=== PATIENT | female | born 1945 | race Caucasian/White ===

== ENCOUNTER 2018-12-31 14:09 | Inpatient (IN) | payer MEDICARE, OTHER ==
[~2018-12-31] VITALS: Ht 165.1 cm; Wt 111.2 kg
[~2018-12-31 14:09] MED LIST: AMIT25 PO; Calcium-Magnes1 EAC5 PO; DOCU100 PO; HYDHCL25 PO; IBUP800 PO; LEVO750 PO; LISI20 PO; NICO14TP TOP; Omeprazole20 M1 PO; PSEU120ER PO; SENN187 PO; SODBIC650 PO; SODCHL1 PO
[2018-12-31 14:43] LABS: Hematocrit 36.1 % (33.0-51.0); Hemoglobin 11.4 g/dL (11.5-16.0); Mean Corpuscular HGB 28.2 pg (26.0-34.0); Mean Corpuscular HGB Conc 31.6 g/dL (31.5-36.5); Mean Corpuscular Volume 89 fL (80-100); Mean Platelet Volume 9.2 fL (9.1-12.4); Platelet Count 256 K/mm3 (150-400); RDW Coefficient Variation 13.9 % (11.7-14.2); RDW Standard Deviation 45.2 fL (35.1-46.3); Red Blood Cell Count 4.04 M/mm3 (3.80-5.20); White Blood Cell Count 21.66 K/mm3 (4.00-11.30)
[2018-12-31] MEDS ORDERED: SERT50 PO (14:55)
[2018-12-31] MEDS ORDERED: STIOLTO RESPIMAT4 GM IH (14:57)
[2018-12-31 15:04] LABS: BASOPHILS PERCENT MAN 0 % (0-2); EOSINOPHILS PERCENT MAN 0 % (0-6); LYMPHOCYTES ABSOLUTE MAN 8.23 K/mm3 (0.84-5.20); LYMPHOCYTES PERCENT MAN 38 % (21-46); MONOCYTES ABSOLUTE MAN 0.64 K/mm3 (0.16-1.47); MONOCYTES PERCENT MAN 3 % (4-13); NEUTROPHILS ABSOLUTE MAN 12.77 K/mm3 (1.96-9.15); SEG NEUTROPHILS PERCENT MAN 59 % (41-73); TOTAL CELLS COUNTED 100
[2018-12-31 15:05] LABS: Alanine Aminotransfer (ALT/SGP 22 U/L (12-78); Albumin, Blood 3.7 g/dL (3.4-5.0); Alk Phos 62 U/L (50-136); Anion Gap 7 mmol/L (6-16); Aspartate Aminotrans (AST/SGOT 18 U/L (12-37); Bilirubin, Total 0.3 mg/dL (0.1-1.0); Blood Urea Nitrogen 15 mg/dL (8-24); Bun/Creatinine Ratio 22.6 (12.0-20.0); CO2, Blood 27 mmol/L (21-32); Calcium, Blood 8.7 mg/dL (8.5-10.1); Chloride, Blood 95 mmol/L (98-108); Creatinine, Blood 0.66 mg/dL (0.40-1.00); Globulin, Blood 3.6 g/dL (2.2-4.0); Glomerular Filtration Rate >60 (60-); Glucose, Blood 145 mg/dL (70-99); Potassium, Blood 4.6 mmol/L (3.5-5.5); Sodium, Blood 129 mmol/L (136-145); Total Protein, Blood 7.3 g/dL (6.4-8.2); Troponin I 0.114 ng/mL (0.000-0.040)
[2018-12-31 16:20] LABS: PCO2 Arterial 55.3 mmHg (35-45); PO2 Arterial 65.5 mmHg (80-100); pH Blood Arterial 7.32 (7.35-7.45)
[2018-12-31] MEDS ORDERED: Norco 10-325 T1 EACH PO (16:55)
[2018-12-31] MEDS ORDERED: CHOL10002 PO (16:58)
[2018-12-31] MEDS ORDERED: MAGOXI400 PO (16:58)
[2018-12-31] MEDS ORDERED: Aspirin EC81 MG PO (16:59)
[2018-12-31] MEDS ORDERED: SERT100 PO (16:59)
[2018-12-31] MEDS ORDERED: LISI5 PO (17:44)
[2018-12-31] MEDS ORDERED: ALBU90OI6 INH (17:45)
--- NOTE | 2018-12-31 19:38 | NUR ---
ARRIVAL AND SHIFT SUMMARY PT PLEASANT AND COOPERATIVE. PT ARRIVED TO UNIT APPROX. 1820 FROM ED VIA GURNEY. PT WAS SLIDE OVER BY STAFF FROM ONE BED TO ANOTHER. ORIENTED PT TO UNIT, ROOM, AND POLICIES. PT ARRIVED TO UNIT SHORT OF BREATH. SATS 96 WITH 3-4L VIA N.C. BUT REMAINED SOB. R.T. WAS NOTIFIED. ENCOURAGED PT TO BREATH IN THROUGH NOSE AND TAKE DEEP BREATHS BUT REMAINED SOB. LUNG SOUNDS HAVE EXPIRATORY WHEEZES T/O. PT REPORTS HAVING PRODUCTIVE COUGH AT TIMES THAT IS YELLOW. VITAL SIGNS STBALE. HEART RHYTHM SINUS TACHYCARDIA IN 100'S. PT DAUGHTER AT BEDSIDE. BED IN LOW POSITION, CALL LIGHT IN REACH AND PT DENIES ANY NEEDS AT THIS TIME. WILL CONTINUE TO MONITOR UNTIL HANDOFF TO NIGHTSHIFT RN.
[2018-12-31] MEDS ORDERED: Calcium Carbon650 MG PO (19:41)
--- NOTE | 2018-12-31 20:00 | NUR ---
CARE ASSUMPTION PT A&O X4, C/O SOB. WHEEZE HEARD T/O LUNGS. SPO2 > 92% ON 3.5L NC. RT IN TO GIVE PT BREATHING TX. PT REFUSING BIPAP/CPAP, REFUSAL FORM SIGNED BY PT AND PLACED IN CHART BY RT. MONITOR SHOWS ST, HR 110-125. OTHERWISE VSS. PT'S DAUGHTER AT BEDSIDE, PROVIDING PT HX AND COACHING PT TO DEEP BREATHE. WILL CONTINUE TO MONITOR AND PROVIDE CARE.
--- NOTE | 2018-12-31 22:32 | NUR ---
UPDATE SECOND TROPONIN BUMPED @ 1.020 FROM 0.114. PT DENIES CP. PT C/O SOB W/ O2 DEMAND INCREASE FROM 3.5L NC TO 5L NC TO MAINTAIN SPO2 > 92% W/ PT LABORING TO BREATHE. PT AGREEABLE TO TRY BIPAP. RT NOTIFIED AND PT PLACED ON BIPAP. ORDERS FROM CHARISMA ATKINSON FOR CARDIOLOGY CONSULT, ECHO IN AM, HEPARIN GTT, AND OTHER MEDICATION CHANGES, SEE E-MAR. WILL CONTINUE TO MONITOR AND PROVIDE CARE.
[2018-12-31 23:31] LABS: International Normalized Ratio 0.94
[2019-01-01 05:47] LABS: Hematocrit 35.5 % (33.0-51.0); Hemoglobin 11.5 g/dL (11.5-16.0); Mean Corpuscular HGB 28.5 pg (26.0-34.0); Mean Corpuscular HGB Conc 32.4 g/dL (31.5-36.5); Mean Corpuscular Volume 88 fL (80-100); Mean Platelet Volume 9.2 fL (9.1-12.4); Platelet Count 260 K/mm3 (150-400); RDW Coefficient Variation 13.4 % (11.7-14.2); RDW Standard Deviation 43.8 fL (35.1-46.3); Red Blood Cell Count 4.03 M/mm3 (3.80-5.20)
[2019-01-01 06:09] LABS: Anion Gap 7 mmol/L (6-16); Blood Urea Nitrogen 14 mg/dL (8-24); Bun/Creatinine Ratio 24.3 (12.0-20.0); CO2, Blood 28 mmol/L (21-32); Calcium, Blood 8.8 mg/dL (8.5-10.1); Chloride, Blood 89 mmol/L (98-108); Creatinine, Blood 0.58 mg/dL (0.40-1.00); Glomerular Filtration Rate >60 (60-); Glucose, Blood 154 mg/dL (70-99); Potassium, Blood 4.3 mmol/L (3.5-5.5); Sodium, Blood 124 mmol/L (136-145)
--- NOTE | 2019-01-01 06:31 | NUR ---
SHIFT SUMMARY PT A&O X4. LUNG SOUNDS WHEEZY T/O. PT STARTED SHIFT ON 3.5L NC. PT LABORING TO BREATHE, BIPAP PLACED ON PT. PT SELF-REMOVAL OF BIPAP W/ DESAT LOW 80'S W/ PT REFUSAL TO WEAR BIPAP MORE. PT NOW WEARING 6L OXYMIZER W/ SPO2 > 92%. MONITOR SHOWING SINUS TACH, HR 100-125 T/O SHIFT. TROPONINS TRENDING UP. CALL TO CHILDCARE WORKER ATKINSON THIS SHIFT W/ ORDERS FOR CARDIOLOGY CONSULT, ECHO, HEPARIN GTT, AND OTHER MEDICATIONS ADDED WELL. PT DENIES CP OR ANY OTHER PAIN OR DISCOMFORT. PT C/O SOB. OCCASSIONAL COUGH W/ PRODUCTION OF THICK, LOPEZ SPUTUM. PT SBA TO BEDSIDE COMMODE. DAUGHTER AT BEDSIDE ASSISTING PT W/ CARE AND COACHING DEEP BREATHING. WILL CONTINUE TO MONITOR AND PROVIDE CARE UNTIL REPORT OFF TO DAY SHIFT RN.
--- NOTE | 2019-01-01 10:50 | NUR ---
RECEIVED REPORT AND ASSUMED CARE OF PATIENT. PT IS SITTING UP IN CHAIR, SHE IS BREATHING WELL AND O2 SAT ARE >95% ON OXYMIZER 6LPM. DAUGHTER AT BEDSIDE ASSISTING WITH CARE AND SUPPORT. WILL CONTINUE TO MONITOR AND FOLLOW ORDERS FOR THIS PATIENT.
--- NOTE | 2019-01-01 11:29 | NUR ---
Echocardiogram comleted.
--- NOTE | 2019-01-01 14:05 | NUR ---
PERMISSION TO PROVIDE CARE PATIENT GAVE STUDENT PERMISSION TO PROVIDE CARE ON 01/01/19 FROM 0630 TO 1200.
--- NOTE | 2019-01-01 14:31 | NUR ---
Initial Visit: Palliative Care Consult for Cancer, Pulmonary, Advanced Care Planning, and Symptom Management. Pt is A&O and reports a tolerable pain level of 3/10 in the center of her chest. She reports the pain is related to the area where her cancer is. Pt denies dyspnea at beginning of visit but as the visit progressed she started experiencing mild dyspnea as evidenced by accessory muscle use. Pt reports her dyspnea worsens with exertion. She reports the current nebulizer treatments she is receiving is helping but her home inhaler is more beneficial. Pt's daughter Velia is present during visit. Velia is Pt's primary caregiver. Engaged in therapeutic discussions regarding goals of care. Pt lives at home with Velia. Pt states that she believes in God but does not practice any particular holiness. Listened as Pt and daughter discusses Pt's recent decline in her ADLs. Pt at base line uses a walker for ambulation but recently has been bed and chair bound due to weakness and SOB. Pt requires assistance with transfers and becomes dyspneic. She also requires assistance with bathing and showering. She also experiences occasional incontinence of bowel and bladder. Pt reports adequate support with her caregiving needs with her daughter Velia. Velia reports no concerns and states she has friends and relatives that help with Pt needs when she needs respite. Pt's reports her biggest concern at this time is obtaining a biopsy during her hospital stay. She states that she can not afford to travel to [place] for the biopsy and she would like to receive treatment here in [place]. Pt and daughter report no other concerns at this time. PPS 50% [place] 50% ADLs 5/6 Spoke with Pt's respiratory therapist regarding Pt's home inhaler. She is agreeable with this RN requesting order from hospitalist to use her home inhaler. Spoke with Pt's bedside nurse Kaylee and she is agreeable with plan for Pt's use of home inhaler. Discussed with Kaylee regarding Pt's goal to have biopsy done during her hospital stay. Kaylee reports no concerns. Called and spoke with Dr Styles regarding Pt's goal for biopsy. Dr Styles reports plan to order biopsy once Dr Jc has determined Pt know longer needs heparin. Dr Styles is agreeable for Pt to use home inhaler. Spoke with critical care physician assistant Tahmina regarding Pt's goal. Tahmina reports she is in the process of contacting the [place] regarding coverage. Tahmina also reports Pt has medicare and medicaid. Plan: Placed order for home inhaler per V/O from Dr Styles. Plan is for Pt to obtain biopsy once heparin therapy is finished. Palliative Care will remain available for therapeutic visits.
--- NOTE | 2019-01-01 15:48 | NUR ---
Addendum from Initial Visit note. watershed manager this RN spoke with is Page not Tahmina.
--- NOTE | 2019-01-01 18:10 | NUR ---
PT HAD A GOOD DAY SHE DID EXPERIENCE A BOUT OF SOB, REPIRATORY CARE GAVE A BREATHING TREATMENT AND HELPED REPOSITION PT TO TRIPOD BREATHE. PT RESPONDS WELL TO ENCOURAGEMENT AND POSITIVE CUES R/T BREATHING AND SOB. PT CONTINUES ON 5 LPM WITH OXYMIZER. ADDITIONALLY HEPARIN RUNNING AT 16 U/KG/HR. PT TAKEN TO IMAGING FOR CT SCAN. WILL CONTINUE TO MONITOR AND GIVE REPORT TO BRINA STEWARD.
[2019-01-01 21:41] LABS: International Normalized Ratio 0.99; Prothrombin Time Results 10.5 Sec (9.7-11.5)
[2019-01-02 04:07] LABS: PCO2 Arterial 76.4 mmHg (35-45); PO2 Arterial 118 mmHg (80-100); pH Blood Arterial 7.24 (7.35-7.45)
[2019-01-02 04:08] LABS: EOSINOPHILS ABSOLUTE AUTO 0.01 K/mm3 (0.00-0.68); EOSINOPHILS PERCENT AUTO 0 % (0-6); Hemoglobin 11.6 g/dL (11.5-16.0); Mean Corpuscular HGB 27.8 pg (26.0-34.0); Mean Corpuscular HGB Conc 32.2 g/dL (31.5-36.5); Mean Corpuscular Volume 86 fL (80-100); Mean Platelet Volume 9.3 fL (9.1-12.4); Platelet Count 339 K/mm3 (150-400); RDW Coefficient Variation 13.5 % (11.7-14.2); RDW Standard Deviation 42.1 fL (35.1-46.3); Red Blood Cell Count 4.17 M/mm3 (3.80-5.20)
[2019-01-02 04:09] LABS: BASOPHILS ABSOLUTE AUTO 0.03 K/mm3 (0.00-0.23); BASOPHILS PERCENT AUTO 0 % (0-2); IMMATURE GRAN ABSOLUTE AUTO 0.27 K/mm3 (0.00-0.10); IMMATURE GRAN PERCENT AUTO 1 % (0-1); LYMPHOCYTES ABSOLUTE AUTO 26.21 K/mm3 (0.84-5.20); LYMPHOCYTES PERCENT AUTO 59 % (21-46); MONOCYTES ABSOLUTE AUTO 0.86 K/mm3 (0.16-1.47); MONOCYTES PERCENT AUTO 2 % (4-13); NEUTROPHILS ABSOLUTE AUTO 17.42 K/mm3 (1.96-9.15); NEUTROPHILS PERCENT AUTO 39 % (41-73)
[2019-01-02 04:33] LABS: Anion Gap 5 mmol/L (6-16); Blood Urea Nitrogen 19 mg/dL (8-24); Bun/Creatinine Ratio 32.6 (12.0-20.0); CO2, Blood 31 mmol/L (21-32); Calcium, Blood 8.3 mg/dL (8.5-10.1); Chloride, Blood 83 mmol/L (98-108); Creatinine, Blood 0.58 mg/dL (0.40-1.00); Glomerular Filtration Rate >60 (60-); Glucose, Blood 183 mg/dL (70-99); Potassium, Blood 4.5 mmol/L (3.5-5.5); Sodium, Blood 119 mmol/L (136-145)
[2019-01-02 05:34] LABS: PCO2 Arterial 72.7 mmHg (35-45); PO2 Arterial 60.7 mmHg (80-100); pH Blood Arterial 7.26 (7.35-7.45)
--- NOTE | 2019-01-02 06:19 | NUR ---
SHIFT SUMMARY. ASSUMED CARE AT 1900 LAST NOC. A+O VERY LITTLE CONVERSING AND EXPRESSED DISAPPOINTMENT IN BEING UNABLE TO TAKE 2 STEPS TO BSC AND STRUGGLING W/ SUCH SOB . REFUSED ANY FOOD AT EARLY PART OF SHIFT . PURSED LIP BREATHING MOSTLY AND ACCESSORY MUSCLES USED
[2019-01-02 08:02] LABS: PCO2 Arterial 63.5 mmHg (35-45)
--- NOTE | 2019-01-02 09:43 | NUR ---
ASSUMED CARE: REPORT RECIEVED FROM GEORGETTE STEWARD. PT ANXIOUS, DISORIENTED. BIPAP IN PLACE AT 20/8 WITH FIO2 AT 30%. WRIST RESTRAINTS PLACED DUE TO PT'S CONFUSION AND AGITATION, ATTEMPTING TO CLIMB OUT OF BED. FLANNERY CATH IN PLACE WITH CLEAR YELLOW URINE. PT'S DAUGHTER AWARE OF ROOM CHANGE AND AWARE OF PLAN. 1 MG ATIVAN GIVEN, AWAITING PRECEDEX GTT
--- NOTE | 2019-01-02 10:12 | NUR ---
Respiratory Event: Received report and assumed care of patient. Pt is on Bipap 20/8 30% O2. Pt was sleeping at beginning of shift, daughter at bedside. When patient woke up she is moaning and very uncomfortable. Tried to reposition patient to bedpan, but patient will not comply with positioning and when bedpan is placed, she is not able to urinate. O2 saturation began dropping as patient anxiety increased. Called RT and CN RN, Pt O2 sat dropped as low as 79% during event, increased O2 to 60% to assist patient during crisis. Dr. Styles arrived to room and during event and ordered transfer to ICU, consult with pulmonology, and NPO status. Pt continued to fight the Bipap and bedpan, noticed small abrasions from bedpan when it was removed. Used therapeutic communication and calming methods to help patient improve breathing. RT returned O2 sat to 35% and prepared to transfer patient with Bipap. When O2 sat improved to 90%, placed 16 FR proctor cath with immediate return of urine. Gave telephone report to RN Mima Hamm Transferred patient to ICU 9.
--- NOTE | 2019-01-02 10:48 | NUR ---
Pt visit this AM. Pt is resting in bed with her eyes closed. Currently on BIPAP with dyspnea. Daughter and son in law at bedside. Daughter reports she was informed that medicare will not cover chemo therapy treatments and she is considering options such as adding Atrio back as a supplement or seeing a [facility] oncologist in [place] for VA to cover treatment here in [place]. Pt appears comfortable at this time and daughter reports no other concerns at this time. Spoke with Pt's bedside nurse Mima and she reports no concerns at this time. Palliative care will remain available.
[2019-01-02 10:57] LABS: Sodium, Urine, Random 45 mmol/L (20-110)
[2019-01-02 13:07] LABS: Osmolality, Urine 623 mos/kg (15-1400)
[2019-01-02 14:51] LABS: Anion Gap 5 mmol/L (6-16); Blood Urea Nitrogen 21 mg/dL (8-24); Bun/Creatinine Ratio 36.3 (12.0-20.0); CO2, Blood 30 mmol/L (21-32); Chloride, Blood 86 mmol/L (98-108); Creatinine, Blood 0.58 mg/dL (0.40-1.00); Glomerular Filtration Rate >60 (60-); Glucose, Blood 140 mg/dL (70-99); Potassium, Blood 4.5 mmol/L (3.5-5.5); Sodium, Blood 121 mmol/L (136-145)
[2019-01-02 14:53] LABS: Thyroid Stimulating Hormone 0.834 uIU/mL (0.360-4.800)
[2019-01-02 14:59] LABS: Osmolality, Serum 260 mos/KG (275-300)
--- NOTE | 2019-01-02 16:29 | NUR ---
PT REQUESTED BREAK FOR SIP OF WATER AND ORAL CARE. SHE BECAME TACHYPNEIC AND AUDIBLY WHEEZY. DISCUSSED WITH DR LICEA TO MAKE HIM AWARE. DR ALSO AWARE THAT PT DID NOT RECIEVE ORAL MEDS THIS AM DUE TO BIPAP. PT REMAINS ON PRECEDEX 0.2MCG/KG/MIN. DAUGHTER AT BEDSIDE. NO FURTHER NEEDS OR CONCERNS AT THIS TIME.
--- NOTE | 2019-01-02 18:02 | NUR ---
SHIFT SUMMARY: PT REMAINS ON BIPAP WITH SETTINGS 18/8 AND 30% FIO2. PT BECOMES VERY LABORED AND WHEEZY WHEN BIPAP IS REMOVED. PRECEDEX GTT AT 0.3MCG/KG/MIN AND THIS APPEARS TO HELP MAINTAIN VITALS. PT REMAINS IN WRIST RESTRAINTS. DAUGHTER AT BEDSIDE. NO ACUTE NEEDS OR CONCERNS AT THIS TIME.
--- NOTE | 2019-01-02 21:54 | NUR ---
START OF SHIFT: REPORT FROM DARRICK STEWARD. PT ON BIPAP. VSS. GTT'S VERIFIED. PT AND PT'S DAUGHTER BOTH SLEEPING AT TIME OF BEDSIDE REPORT. DURING PT ASSESSMENT, PT AWAKENED TO VOICE, ORIENTED TO SELF, FAMILY, AND FOLLOWING COMMANDS. PT REQUESTED AND WAS GIVEN SIPS OF WATER TWO DIFFERENTS TIMES AND TOLERATED WELL. PT REMAINS IN RESTRAINTS AND WAS GIVEN EXPLANATION WHY AND SEEMED TO ACCEPT. PT WAS REPOSITIONED BUT THEN C/O DISCOMFORT LYING ON RIGHT SIDE. PT REPOSITIONED FOR PT COMFORT. DAUGHTER REMAINS AT BEDSIDE AND TALKS TO PT FREQUENTLY KEEPING PT CALM AND RELAXED.
--- NOTE | 2019-01-03 03:31 | NUR ---
NAUSEA: PT COUGHED WITH BIPAP ALARM. UPON ENTERING, PT STATED THAT SHE WAS FEELING NAUSEATED. BIPAP TAKEN OFF, NC PLACED. PT GIVEN EMESIS BAG AND DRY-HEAVED ONCE. PT GIVEN ZOFRAN. PT REMAINS IN UPRIGHT HIGH-AGUILA'S POSITION. SATS 98% WITH N/C ON 5L-REDUCED TO 3.5L. WILL CONTINUE TO MONITOR AND REPLACE WITH BIPAP WHEN PT NAUSEA RESOLVES.
--- NOTE | 2019-01-03 03:39 | NUR ---
RESTRAINTS OFF WHEN PT BECAME NAUSEATED AND BIPAP OFF. PT NOT PULLING AT LINES OR CORDS. WILL REMAIN OFF RESTRAINTS IF PT REMAINS ORIENTED AND NOT PULLING AT LINES OR TUBES.
[2019-01-03 03:57] LABS: Hemoglobin 10.5 g/dL (11.5-16.0); Mean Corpuscular HGB 28.5 pg (26.0-34.0); Mean Corpuscular HGB Conc 32.8 g/dL (31.5-36.5); Mean Corpuscular Volume 87 fL (80-100); Mean Platelet Volume 9.4 fL (9.1-12.4); Platelet Count 241 K/mm3 (150-400); RDW Coefficient Variation 13.3 % (11.7-14.2); RDW Standard Deviation 42.4 fL (35.1-46.3); Red Blood Cell Count 3.68 M/mm3 (3.80-5.20); White Blood Cell Count 27.94 K/mm3 (4.00-11.30)
[2019-01-03 04:14] LABS: Albumin, Blood 3.3 g/dL (3.4-5.0); Anion Gap 6 mmol/L (6-16); Blood Urea Nitrogen 20 mg/dL (8-24); Bun/Creatinine Ratio 34.1 (12.0-20.0); CO2, Blood 30 mmol/L (21-32); Chloride, Blood 87 mmol/L (98-108); Creatinine, Blood 0.59 mg/dL (0.40-1.00); Glomerular Filtration Rate >60 (60-); Glucose, Blood 138 mg/dL (70-99); Phosphorus, Blood 2.4 mg/dL (2.5-4.9); Potassium, Blood 4.6 mmol/L (3.5-5.5); Sodium, Blood 123 mmol/L (136-145)
--- NOTE | 2019-01-03 05:01 | NUR ---
ANXIETY/COUGH: PT USING CALL LIGHT APPROPRIATELY. PT HAS BEEN TRYING TO WEAR BIPAP BUT IS HAVING FREQUENT COUGHING/GAGGING EPISODES PRODUCING CLEAR PHLEGM. PRECEDEX TITRATED UP TO 0.6mcg/kg/hr. VSS. PT CURRENTLY WITH SATS 98% VIA N/C 5L O2. WILL REDUCE TO 4L AND CONTINUE TO MONITOR.
[2019-01-03 06:04] LABS: BASOPHILS PERCENT MAN 0 % (0-2); EOSINOPHILS PERCENT MAN 0 % (0-6); LYMPHOCYTES ABSOLUTE MAN 14.24 K/mm3 (0.84-5.20); LYMPHOCYTES PERCENT MAN 51 % (21-46); MONOCYTES ABSOLUTE MAN 0.83 K/mm3 (0.16-1.47); MONOCYTES PERCENT MAN 3 % (4-13); NEUTROPHILS ABSOLUTE MAN 12.85 K/mm3 (1.96-9.15); SEG NEUTROPHILS PERCENT MAN 46 % (41-73); TOTAL CELLS COUNTED 100
--- NOTE | 2019-01-03 06:55 | NUR ---
ASSUMED CARE: PT RESTING QUIETLY AT THIS TIME. OUT OF RESTRAINTS, BIPAP ON, PRECEDEX AT 0.6 MCG/KG/MIN. BIPAP SETTINGS 18/8 WITH 30% FIO2. DAUGHTER AT BEDSIDE. NO ACUTE CHANGES OR NEEDS AT THIS TIME.
--- NOTE | 2019-01-03 07:41 | NUR ---
PT C/O NAUSEA. REMOVED FROM BIPAP FOR BREAK AND PROVIDED WITH SIPS OF WATER. PT TOLERATED FOR A FEW MINUTES BUT BEGAN TO DESAT. WHEEZING BEGAN TO WORSEN WELL BUT RESPIRATIONS STAYED IN 30S. PT STATES NAUSEA WAS BETTER. PT REACHED FOR CHEST BUT DENIES CHEST PAIN. NIGHT RN REPORTED PT WAS FEELING CONSTIPATED. DISCUSSED THIS WITH PT WHO DECLINED NEED FOR LAXATIVE. PT AWARE THAT THIS IS AVAILABLE IF SHE CHANGES HER MIND. NO FURTHER NEEDS OR CONCERNS AT THIS TIME.
--- NOTE | 2019-01-03 07:53 | NUR ---
PT CONTINUES TO C/O NAUSEA AND DESCRIBES IT A BUBBLE SUBSTERNALLY. CONTINUES TO REQUEST MASK REMOVED SO SHE CAN VOMIT BUT WHEN SHE TRIES MUCOUS COMES UP. DENIES CHEST PAIN. CALL TO DR GORDON. SEE NEW ORDERS
[2019-01-03 11:58] LABS: Base Excess Venous 4.9 mmol/L; PO2 Venous 62.5 mmHg (38-42); pH Blood Venous 7.37 (7.34-7.37)
--- NOTE | 2019-01-03 15:38 | NUR ---
PT REQUESTED TO TAKE A BREAK FOR SIPS OF WATER. PT WAS OFF FOR ABOUT 8 MINUTES THEN REQUESTED TO BE BACK ON. PRECEDEX HAS BEEN OFF SINCE 1213. PT'S DAUGHTER CALLED TO GET UPDATE. PT DENIES ANXIETY AT THIS TIME. DR GHOSH UPDATED
--- NOTE | 2019-01-03 17:23 | NUR ---
PT BECAME ANXIOUS AND WITH ANXIETY SOB INCREASED WELL HR. MEDICATED WITH ATIVAN WITH NO IMPROVEMENT. RESTARTED PRECEDEX GTT AT 0.3 MCG/KG/MIN
--- NOTE | 2019-01-03 18:06 | NUR ---
SHIFT SUMMARY: PT WAS RESTARTED ON PRECEDEX DUE TO INCREASED ANXIETY. PT BECOMES SOB WITH TASKS SUCH REPOSITIONING AND ORAL CARE AND BECAME ANXIOUS WHEN SHE WAS TOLD HER DAUGHTER WASN'T PLANNING ON SLEEPING HERE TONIGHT. PRECEDEX AT 0.6MCG/KG/MIN. BIPAP 16/8 WITH FIO2 50%. PT'S DAUGHTER IS AWARE. NO FURTHER NEEDS OR CONCERNS AT THIS TIME
--- NOTE | 2019-01-03 19:45 | NUR ---
ASSUMED CARE BEDSIDE REPORT RECIEVED. PT IS LAYING IN BED WITH BIPAP ON. BIPAP 16/8, FIO2 50%. VITAL SIGNS STABLE. PT WITH PRECEDEX INFUSING AT 0.6 MCG/KG/MIN. PT AROUSES TO VERBAL STIMULI AND IS ABLE TO FOLLOW COMMANDS. PT IS CONFUSED/FORGETFUL. NS INFUSING AT 75 ML/HR. PT WITH FLANNERY IN PLACE WITH YELLOW OUTPUT NOTED. PT WITH AUDIBLE WHEEZING NOTED AND PT REQUESTING BREATHING TREATMENT AT THIS TIME. WILL CONTINUE TO MONITOR.
--- NOTE | 2019-01-04 | NUR ---
UPDATE PT CONTINUALLY PULLING OFF BIPAP AND SPO2 PROBE DESPITE MULTIPLE ATTEMPTS TO REASSURE AND REORIENT PT. PRECEDEX AT 0.7 MCG/KG/MIN. PT PLACED IN SBW RESTRAINTS AT THIS TIME. WILL CONTINUE TO MONITOR.
[2019-01-04 03:39] LABS: Bicarbonate Venous 26.9 mmol/L (24.0-30.0); PCO2 Venous 52 mmHg (38-42); PO2 Venous 144 mmHg (38-42); pH Blood Venous 7.36 (7.34-7.37)
[2019-01-04 03:40] LABS: Base Excess Venous 3.6 mmol/L
[2019-01-04 03:56] LABS: BASOPHILS ABSOLUTE AUTO 0.03 K/mm3 (0.00-0.23); BASOPHILS PERCENT AUTO 0 % (0-2); EOSINOPHILS PERCENT AUTO 0 % (0-6); Hematocrit 31.1 % (33.0-51.0); Hemoglobin 9.9 g/dL (11.5-16.0); Mean Corpuscular HGB 28.2 pg (26.0-34.0); Mean Corpuscular HGB Conc 31.8 g/dL (31.5-36.5); Mean Corpuscular Volume 89 fL (80-100); Mean Platelet Volume 9.7 fL (9.1-12.4); Platelet Count 222 K/mm3 (150-400); RDW Coefficient Variation 13.8 % (11.7-14.2); RDW Standard Deviation 44.5 fL (35.1-46.3); Red Blood Cell Count 3.51 M/mm3 (3.80-5.20); White Blood Cell Count 24.39 K/mm3 (4.00-11.30)
[2019-01-04 04:08] LABS: IMMATURE GRAN ABSOLUTE AUTO 0.16 K/mm3 (0.00-0.10); IMMATURE GRAN PERCENT AUTO 1 % (0-1); LYMPHOCYTES ABSOLUTE AUTO 11.67 K/mm3 (0.84-5.20); LYMPHOCYTES PERCENT AUTO 48 % (21-46); MONOCYTES ABSOLUTE AUTO 0.94 K/mm3 (0.16-1.47); MONOCYTES PERCENT AUTO 4 % (4-13); NEUTROPHILS ABSOLUTE AUTO 11.59 K/mm3 (1.96-9.15); NEUTROPHILS PERCENT AUTO 48 % (41-73)
[2019-01-04 04:20] LABS: Albumin, Blood 2.9 g/dL (3.4-5.0); Anion Gap 3 mmol/L (6-16); Blood Urea Nitrogen 21 mg/dL (8-24); Bun/Creatinine Ratio 31.2 (12.0-20.0); CO2, Blood 30 mmol/L (21-32); Calcium, Blood 7.4 mg/dL (8.5-10.1); Chloride, Blood 94 mmol/L (98-108); Creatinine, Blood 0.67 mg/dL (0.40-1.00); Glomerular Filtration Rate >60 (60-); Glucose, Blood 150 mg/dL (70-99); Phosphorus, Blood 2.7 mg/dL (2.5-4.9); Potassium, Blood 4.8 mmol/L (3.5-5.5); Sodium, Blood 127 mmol/L (136-145)
--- NOTE | 2019-01-04 05:49 | NUR ---
SHIFT SUMMARY PT HAS DONE BETTER THIS AM WITH PRECEDEX AT 0.7 MCG/KG/MIN AND SBW RESTRAINTS. PT HAS CONTINUED WITH BIPAP THROUGHOUT THE AM, SETTINGS 16/8, FIO2 30%. VITAL SIGNS HAVE REMAINED STABLE. NS INFUSING AT 75 ML/HR. FLANNERY REMAINS IN PLACE WITH GOOD URINE OUTPUT THIS SHIFT. SEE PREVIOUS NOTES FOR MORE SHIFT INFO. WILL CONTINUE TO MONITOR AND REPORT OFF TO ONCOMING RN.
--- NOTE | 2019-01-04 07:43 | NUR ---
START OF SHIFT NOTE: RECEIVED REPORT FROM NICHELLE WELCH, ASSUMED CARE, PATIENT IS AWAKE, ON BIPAP WITH SETTINGS 16/8 WITH FiO2 30 %, PATIENT NPO AT THIS TIME EXCEPT FOR SIPS OF WATER WITH MEDICATION, PLACED ON 4-5 L NC WHEN TAKING MEDICATION FOR BRIEF PERIOD OF TIME, PATIENT IS ALERT BUT CONFUSED UNABLE TO STATE WHERE SHE IS AND WHAT THE SITUATION IS, LUNG SOUNDS ARE TIGHT AND WHEEZY, NSR WITH HR IN 70'S, BOWEL TONES HYPOACTIVE, FLANNERY CATHETER IN PLACE WITH LARGE AMOUNT OF CLEAR LIGHT YELLOW URINE OUTPUT, PEDAL PULSES PRESENT AND PALPABLE, PATIENT IS ON PRECEDEX AT 0.7 AND RESTRAINT, PATIENT VERY ANXIOUS AND TRIES TO PULL BIPAP OFF AND PULLS ON IV'S AND CATHETER, CALL LIGHT IN REACH, WILL CONTINUE TO MONITOR.
--- NOTE | 2019-01-04 08:19 | NUR ---
DR. GORDON IN TO SEE PATIENT, NO NEW ORDERS RECEIVED.
--- NOTE | 2019-01-04 09:21 | NUR ---
PATIENT MORE AWAKE, ABLE TO TELL WHERE SHE IS, FOLLOWS COMMANDS, TOOK AM MEDICATION WITH SIPS OF WATER AND HAD NO PROBLEM SWALLOWING, BIPAP WAS REMOVED AND IS ON STANDBY, PATIENT ON 5L NC SATING AT 99 %, RT IN TO SEE PATIENT AND TURNED O2 DOWN TO 4L NC, PATIENT TOLERATING WELL, RESTRAINTS OFF AT THIS TIME, PATIENT IS COHERENT AND ABLE TO FOLLOW COMMANDS, CONTINUES TO BE ON PRECEDEX AT O.7, SHOWS NO AGITATION AT THIS TIME, CALL LIGHT EXPLAINED AND IN REACH, WILL CONTINUE TO MONITOR.
--- NOTE | 2019-01-04 09:42 | NUR ---
PATIENT CONTINUES ON NC AT 4L SATING AT 98 %, PATIENT IS ALERT AND ORIENTED JUST SLIGHTLY VAGUE ABOUT DATE/TIME, ASKING FOR HER DAUGHTER, APOLOGIZED TO EVERYONE FOR BEING "CRABBY", REPOSITIONED FOR COMFORT, WATCHING TV, CALL LIGHT IN REACH, WILL CONTINUE TO MONITOR.
--- NOTE | 2019-01-04 10:06 | NUR ---
PATIENT'S DAUGHTER CALLED TO GET UPDATE, PROVIDED, DAUGHTER WILL BE HERE SHORTLY.
--- NOTE | 2019-01-04 11:42 | NUR ---
DR. WADDELL IN TO SEE PATIENT, NEW ORDERS RECEIVED, PATIENT'S DAUGHTER AT BEDSIDE, RT IN TO GIVE BREATHING TREATMENT, PATIENT ON 3L NC AT THIS TIME, CONTINUES O2 SATURATION IN MID 90'S, CALL LIGHT IN REACH, WILL CONTINUE TO MONITOR.
--- NOTE | 2019-01-04 12:48 | NUR ---
PATIENT CONTINUES TO DO WELL ON 30 NC, WATCHING TV, BED PLACED IN CHAIR POSITION FOR INCREASED COMFORT, RESTRAINTS DISCONTINUED, CALL LIGHT IN REACH, WILL CONTINUE TO MONITOR.
--- NOTE | 2019-01-04 14:30 | NUR ---
Therapeutic visit this afernoon. Pt on BIPAP at the time of visit. Offered therapeutic voice and touch by holding Pt's hand. Pt appears to appreciate gesture. Asked how she is feeling and Pt states she is doing ok. Pt denies any concerns at this time. Spoke with Pt's bedside nurse Faith and she reports Pt is doing better today and is A&O. Faith reports Pt experienced anxiety and confusion last night and soft wrist restraints were placed. No concerns reported at this time. Palliative Care will remain available
--- NOTE | 2019-01-04 17:24 | NUR ---
PATIENT C/O CHEST PAIN, DR. WADDELL NOTIFIED, EKG DONE, WILL GIVE NITRO S/L ORDERED BY DR. WADDELL, CALL LIGHT IN REACH, WILL CONTINUE TO MONITOR, PATIENT IS BACK ON BIPAP.
--- NOTE | 2019-01-04 17:40 | NUR ---
PATIENT RECEIVED O.4 MG NITRO S/L, AND 12.5 MCG OF FENTANYL FOR CHEST PAIN 12/29, PATIENT ALSO C/O BLOATING IN STOMACH AND 'FEELING LIKE MY STOMACH IS BIFG, FAT AND BLOATED", PATIENT IS BURPING, AND APPEARS TO FEEL BETTER, CALL LIGHT IN REACH, WILL CONTINUE TO MONITOR, LAB AT BEDSIDE, DRAWING ORDERED TROPONINS.
--- NOTE | 2019-01-04 17:48 | NUR ---
PATIENT PLACED BACK ON BIPAP 16/8/FiO2 30 %, PATIENT STATED THAT HER CHEST PAIN IN ALMOST GONE.
--- NOTE | 2019-01-04 17:55 | NUR ---
SHIFT SUMMARY NOTE: JAYY IS RESTING COMFORTABLY AT THIS TIME, ON BIPAP, REPORTS NO MORE CHEST PAIN/PRESSURE, REC'D ONE SL NITRO AND 12.5 MCG OF FENTANYL, FOR DETAILS SEE SHIFT ASSESSMENT DOCUMENTATION AND NURSES NOTES, CALL LIGHT IN REACH, WILL CONTINUE TO MONITOR AND GIVE REPORT TO ONCOMING ELECTRIC MULE DRIVER.
--- NOTE | 2019-01-04 19:50 | NUR ---
ASSUMED PT CARE AT 1915 PT SITTING UPRIGHT IN BED. 5L OF OXYGEN VIA NC WITH OXYGEN SATURATIONS AT 97%. PT IS ALERT AND ORIENTED AND ABLE TO MAKE NEEDS KNOWN; FORGETFULNESS NOTED OCCASIONALLY. BIPAP OFF, BUT WITHIN REACH. PRECEDEX GTT INFUSING AT 0.3MCG/KG/HR. NS INFUSING AT 75MLS/HR. PT C/O MILD CHEST DISCOMFORT; DESCRIBES IT A DULL ACHE, BUT DOESN'T RADIATE ANYWHERE ELSE. STATES PAIN IS A 5/10. NO FAMILY AT BEDSIDE. PT REQUESTED THAT I CALL FAMILY TO BRING IN HER INHALER; WILL PLACE CALL TO DAUGHTER. CALL LIGHT WITHIN REACH.
--- NOTE | 2019-01-04 20:00 | NUR ---
SPOKE WITH PT'S DAUGHTER, LILIANA, ASKED THAT SHE BRING IN PT'S HOME INHALER IT WAS NOT AMONG PT'S BELONGING'S. DAUGHTER STATED THAT SHE GAVE IT TO THE NURSE PRIOR TO PT BEING TRANSFERRED TO THIS UNIT. ENSURED THE DAUGHTER THAT I CHECKED THAT UNIT, WELL PT'S MEDICATION BOX AND PHARMACY AND INHALER WAS NOT TO BE FOUND IN ANY OF THOSE LOCATIONS. SHE STATED SHE WOULD BRING ONE IN TOMORROW.
[2019-01-05 02:14] LABS: BASOPHILS ABSOLUTE AUTO 0.04 K/mm3 (0.00-0.23); BASOPHILS PERCENT AUTO 0 % (0-2); EOSINOPHILS ABSOLUTE AUTO 0.02 K/mm3 (0.00-0.68); EOSINOPHILS PERCENT AUTO 0 % (0-6); Hematocrit 33.6 % (33.0-51.0); Hemoglobin 10.6 g/dL (11.5-16.0); Mean Corpuscular HGB 28.7 pg (26.0-34.0); Mean Corpuscular HGB Conc 31.5 g/dL (31.5-36.5); Mean Corpuscular Volume 91 fL (80-100); Mean Platelet Volume 9.4 fL (9.1-12.4); Platelet Count 250 K/mm3 (150-400); RDW Coefficient Variation 14.2 % (11.7-14.2); RDW Standard Deviation 46.7 fL (35.1-46.3); Red Blood Cell Count 3.69 M/mm3 (3.80-5.20); White Blood Cell Count 28.86 K/mm3 (4.00-11.30)
[2019-01-05 02:19] LABS: IMMATURE GRAN ABSOLUTE AUTO 0.21 K/mm3 (0.00-0.10); IMMATURE GRAN PERCENT AUTO 1 % (0-1); LYMPHOCYTES ABSOLUTE AUTO 13.77 K/mm3 (0.84-5.20); LYMPHOCYTES PERCENT AUTO 48 % (21-46); MONOCYTES ABSOLUTE AUTO 2.11 K/mm3 (0.16-1.47); MONOCYTES PERCENT AUTO 7 % (4-13); NEUTROPHILS ABSOLUTE AUTO 12.71 K/mm3 (1.96-9.15); NEUTROPHILS PERCENT AUTO 44 % (41-73)
[2019-01-05 02:30] LABS: Anion Gap 2 mmol/L (6-16); Blood Urea Nitrogen 17 mg/dL (8-24); Bun/Creatinine Ratio 25.3 (12.0-20.0); CO2, Blood 33 mmol/L (21-32); Calcium, Blood 7.6 mg/dL (8.5-10.1); Chloride, Blood 98 mmol/L (98-108); Creatinine, Blood 0.67 mg/dL (0.40-1.00); Glomerular Filtration Rate >60 (60-); Glucose, Blood 122 mg/dL (70-99); Phosphorus, Blood 1.7 mg/dL (2.5-4.9); Potassium, Blood 4.5 mmol/L (3.5-5.5); Sodium, Blood 133 mmol/L (136-145)
--- NOTE | 2019-01-05 06:14 | NUR ---
END OF SHIFT SUMMARY MENTATION HAS NOT CHANGED T/O SHIFT. PT HAS REQUESTED LONG AND MULTIPLE BREAKS OFF THE BIPAP AND HAS BEEN TOLERATING 4L NC WITH OXYGEN SATURATIONS MAINTAINING GREATER THAN 94%. PT STATES SHE CAN'T STAND THE AIR LEAKS ON THE BIPAP MASK AND THE NOISES IT MAKES. SHE STATES IT "FEELS LIKE IT IS BEATING HER IN THE FACE". PRECEDEX HAS REMAINED OFF SINCE MIDNIGHT. MEDICATED WITH PRN FENTANYL X2. ABLE TO TALK DOWN PT'S ANXIETY BY COACHING THROUGH BREATHING TECHNIQUES AND HAVING PT WEAR BIPAP SHE TOLERATES. PT C/O MID STERNAL PAIN; DULL ACHE, NO RADIATION. CALL LIGHT IS WITHIN REACH; ABLE TO MAKE NEEDS KNOWN. RECEIVED 400CC OF FLUIDS THIS SHIFT; REMAINS ON 1200CC FLUID RESTRICTION. FAMILY CALLED TO CHECK ON PT AND STATED THEY WOULD BE IN TODAY WITH MORE OF PT'S BELONGINGS INCLUDING INHALER.
--- NOTE | 2019-01-05 09:59 | NUR ---
Thania c/o pain this morning, pointing to the epigastric area. She received Maalox, Fentanyl about [address] Styles rounded this morning; however, she reported no relief. Pepcid was given per schedule, but she continued to c/o pain and also stated difficulty breathing. Repositioning in bed to high david's position gave minimal relief. She was assisted to the chair, but again with minimal relief, and spo2 was 80-86%. Bipap was put on and shortly after her work of breathing appeared improved, and she herself also stated it was better. Fio2 briefly turned up to 40% following transfer to improve spo2 from 80%, and at this time returned to 30% following recovery. She states that she is feeling better while sitting up in the recliner. She is still wearing the bipap.
--- NOTE | 2019-01-05 11:09 | NUR ---
STIOLTO RESPIMAT INHALER SENT TO PHARMACY FOR VERIFICATION, AND RETURNED TO PT ROOM. RT NOTIFIED OF IT BEING AVAILABLE FOR USE.
--- NOTE | 2019-01-05 13:18 | NUR ---
Telephone report was given to Kaylee Oliveros, and shortly thereafter the pt was transferred to PCU 5 from ICU 9. Velia, the pt's daughter, was called and updated on the pt condition as well as informed that the pt would be tranferred to PCU 5.
--- NOTE | 2019-01-05 13:40 | NUR ---
RECEIVED REPORT FROM NICHELLE Hamm AND PT TRANFERRED TO PCU 5. PT AFFECT IS PLEASANT AT THIS TIME. NO COMPLAINT OF PAIN OR CONCERN. WILL CONTINUE TO MONITOR AND FOLLOW ORDERS FOR THIS PATIENT.
--- NOTE | 2019-01-05 17:25 | NUR ---
PT HAD A GOOD DAY AFTER HER TRANFER TO PCU, SHE HAD C/O PAIN AROUND 2:45, MEDICATED PER EMAR WITH FENTYNAL AND TYLENOL. PT EXPRESSED SOME RELIEF, BUT DID REPORT SOME NAUSEA AND GASSY FEELING IN HER MID ABDOMEN. HELPED PATIENT TO SIT AT BEDSIDE, SHE BELCHED SEVERAL TIMES AND EXPRESSED SOME RELIEF, GAVE MED PER EMAR FOR CONTINUED RELIEF. PT IS SITTING HIGH AGUILA POSITION AND IS RESTING AT THIS TIME. WILL CONTINUE TO MONITOR CLOSELY AND GIVE REPORT TO NOC RN.
--- NOTE | 2019-01-06 06:56 | NUR ---
SHIFT SUMMARY A/O, ABLE TO MAKE NEEDS KNOWN. COOPERATIVE WITH CARE. ANSWERS QUESTIONS APPROPRIATELY, HOWEVER HAS SOME INSTANCES OF FORGETFULNESS. NO ACUTE CHANGES OVERNIGHT. MEDICATED FOR PAIN/ANXIETY PER EMAR. ON BIPAP FOR SOME OF SHIFT. UP PERIODICALLY THROUGHOUT THE NIGHT TO BSC. PATIENT HAVING A HARD TIME HAVING A BM; BUT DID HOWVER HAVE A SMALL BM THIS AM. CONTINUED TO MONITOR THROUGHOUT THE NIGHT. BED IN LOWEST POSITION. CALL LIGHT AND BELONGINGS WITHIN REACH. REPORT GIVEN TO DAY RN.
--- NOTE | 2019-01-06 19:50 | NUR ---
This morning the pt appeared to be much more comfortable than 24 hours ago. She is oriented, appropriate in conversation, and I am not seeing the forgetfulness she had yesterday. Today she said that she is feeling very bloated. States that she is having some epigastric discomfort which is relieved with belching. States that she is passing some gas. She felt some relief today also with getting OOB to the bedside recliner. She tolerates this only fairly, with desaturation with activity, and recovery within 5 minutes. She has used the bipap twice today during the day when she was feeling short of breath. Lung sounds remain coarse. She has not had any other c/o pain other than what was described above. She has been able to dangle on the side of the bed for her meals. Appetite fair, and good urine output.
--- NOTE | 2019-01-07 03:18 | NUR ---
01/07/19 0312 CONT. PULSE OX ALARMING. SATS= 86% ON 4LPM O2. PT STATES SHE JUST TURNED ON SIDE. RESP. CARE HERE AND OFFERED RESP/TX AND PT ACCEPTED. TX GIVEN BY RT.
--- NOTE | 2019-01-07 05:00 | NUR ---
01/07/19 0500 PT C/O SOB ON AND OFF ALL SHIFT. BIPAP APPLIED BUT CALLS TO DISCONNECT IT WITHIN 15 MINUTES OF APPLICATION. O2 AT 4 LPM VIA N/C WHEN NOT ON BIPAP. DANGLING AT BEDSODE ALSO HELPS BREATHING ALONG WITH RESP. TX. NILATERAL WHEEZING NOTED THROUGHTOUT SHIFT. MEDICATED TWICE FOR UPPER ABD/CHEST DISCOMFORT. VITALS STABLE.
[2019-01-07 08:34] LABS: PO2 Arterial 77.5 mmHg (80-100); pH Blood Arterial 7.31 (7.35-7.45)
[2019-01-07 08:35] LABS: PCO2 Arterial 71.8 mmHg (35-45)
--- NOTE | 2019-01-07 13:05 | NUR ---
earlier pt daughter by also updated by phone req we call for any changes to her moms cond talked with discharge specialist also req rn carter if avail pt mady bipap well using iv pain meds and iv anxiety meds to help pt mady wearing it pt currnetly resting laying on her side
--- NOTE | 2019-01-07 14:03 | NUR ---
PT RESTING ON SIDE WITH BIPAP ON. TOLERATING BIPAP AT THIS TIME WITH O2 SAT AT 93%.FAMILY AT BEDSIDE
--- NOTE | 2019-01-07 15:00 | NUR ---
RESPOSITIONED PT. CHANGED FROM BIPAP TO NASAL CANNULA TO ENCOURAGE ORAL FLUIDS. PT C/O SHOULDER PAIN. WILL LEAVE NC ON AND MEDICATE PER OCT, THEN RETURN TO BIPAP
--- NOTE | 2019-01-07 15:35 | NUR ---
pt req pain meds for chest tightness and rib pain 03/31 fent 12.5 mg given pt back on bipap hob elev 90 pt feeling warm blankets removed fan on daughter left will update when dr huynh comes
--- NOTE | 2019-01-07 17:10 | NUR ---
DR WADDELL BY TO SEE PT IV LASIX 40 MG GIVEN FREQ CHANGED FOR SOLUMEDROL TO EVERY 6 HRS PO PRILOSEC GIVEN CALLED PT'S DAUGHTER WITH UPDATE PT OK PER NADIRA TO STAY OF BIPAP FOR AWHILE FOR A BREAK BUT NEEDS TO GO BACK ON FOR THE DANETTE NPO AFTER 0500 5/20 FOR POSS BRONCH IN AFTERNOON IF LS IMPROVE PT STILL HAVING EXP WHEEZING DIM REPORTING SOB AND CHEST PAIN
[2019-01-08 04:17] LABS: BASOPHILS ABSOLUTE AUTO 0.08 K/mm3 (0.00-0.23); BASOPHILS PERCENT AUTO 0 % (0-2); EOSINOPHILS ABSOLUTE AUTO 0.01 K/mm3 (0.00-0.68); EOSINOPHILS PERCENT AUTO 0 % (0-6); Mean Corpuscular HGB 28.1 pg (26.0-34.0); Mean Corpuscular HGB Conc 30.6 g/dL (31.5-36.5); Mean Corpuscular Volume 92 fL (80-100); Mean Platelet Volume 9.5 fL (9.1-12.4); Platelet Count 297 K/mm3 (150-400); RDW Coefficient Variation 14.5 % (11.7-14.2); RDW Standard Deviation 48.3 fL (35.1-46.3); Red Blood Cell Count 3.92 M/mm3 (3.80-5.20)
[2019-01-08 04:25] LABS: IMMATURE GRAN ABSOLUTE AUTO 0.42 K/mm3 (0.00-0.10); IMMATURE GRAN PERCENT AUTO 1 % (0-1); LYMPHOCYTES ABSOLUTE AUTO 24.61 K/mm3 (0.84-5.20); LYMPHOCYTES PERCENT AUTO 63 % (21-46); MONOCYTES ABSOLUTE AUTO 1.12 K/mm3 (0.16-1.47); MONOCYTES PERCENT AUTO 3 % (4-13); NEUTROPHILS ABSOLUTE AUTO 13.16 K/mm3 (1.96-9.15); NEUTROPHILS PERCENT AUTO 33 % (41-73)
[2019-01-08 04:33] LABS: Albumin, Blood 3.4 g/dL (3.4-5.0); Anion Gap 5 mmol/L (6-16); Blood Urea Nitrogen 14 mg/dL (8-24); Bun/Creatinine Ratio 23.4 (12.0-20.0); CO2, Blood 38 mmol/L (21-32); Calcium, Blood 7.9 mg/dL (8.5-10.1); Chloride, Blood 91 mmol/L (98-108); Glomerular Filtration Rate >60 (60-); Glucose, Blood 166 mg/dL (70-99); Phosphorus, Blood 2.4 mg/dL (2.5-4.9); Potassium, Blood 3.7 mmol/L (3.5-5.5); Sodium, Blood 134 mmol/L (136-145)
[2019-01-08 04:38] LABS: PCO2 Arterial 66.4 mmHg (35-45); PO2 Arterial 63.8 mmHg (80-100)
--- NOTE | 2019-01-08 14:04 | NUR ---
PERMISSION FOR PATIENT PATIENT GAVE STUDENT PERMISSION TO PROVIDE CARE ON 01/09/19 FROM 9830 TO 1200.
--- NOTE | 2019-01-08 16:59 | NUR ---
PT HAS HAD A DIFFICULT TIME OFF AND ON WITH HER BENITA. SHE HAS BIPAP AT BEDSIDE, HOWEVER SHE ONLY LEAVES IT ON FOR A SHORT PERIOD, THEN TAKES IT OFF. PT ANXIETY LEVEL HAS INCREASED AND HAS CONTINUED TO RISE WHEN FAMILY IS NOT AT BEDSIDE. RT HAS PROVIDED BREATHING TREATMENTS TODAY. PT CONTINUES ON 5 LPM NC WITH O2 SAT OF 92-96%. WHEN PATIENT MOVES FROM CHAIR TO BED SHE DOES DESAT TO 75%, MONITOR CLOSELY AND ENSURE PATIENT RECOVERED SAFELY. CONTINUING TO MONITOR CLOSELY AND WILL FOLLOW ORDERS.
--- NOTE | 2019-01-08 17:03 | NUR ---
DR BOCANEGRA TO SEE PATIENT THIS AM AROUND 0930, HE STATES THAT HE IS NOT GOING TO DO THE BRONCOSCOPY TODAY D/T HER UNSTABLE RESPIRATORY STATUS. HE WILL COME BACK AND VISIT WITH FAMILY WHEN THEY ARRIVE TO THE UNIT.
--- NOTE | 2019-01-08 17:26 | NUR ---
DR DEMARCO CALLED AND STATED WE NEED TO CHANGE PT TO CLEAR LIQUID AND LIMIT NARCOTIC USE. GIVE SUPPOSITORY TONIGHT TO TRY TO HELP PT HAVE BOWEL MOVEMENT. WILL CONTINUE TO MONITOR.
--- NOTE | 2019-01-08 18:50 | NUR ---
PT HAS HAD A TOUGH DAY. SHE WAS ABLE TO HAVE A SMALL SOFT BOWEL MOVEMENT BUT STILL HAS VERY DISTENDED ABDOMEN THAT IS FIRM AND TENDER. PT HAS NOT EATEN TODAY AND THIS EVENING REFUSED HER MEAL TRAY COMPLETELY. DR DEMARCO HAS CHANGED DIET TO CLEAR LIQUID D/T ADBOMEN XR RESULTS. PT CONTINUES ON 4 LPM NC WITH O2 SAT >95% THIS AFTERNOON. WILL CONTINUE TO MONITOR PATIENT AND GIVE REPORT TO BRINA STEWARD.
--- NOTE | 2019-01-08 23:13 | NUR ---
PCU NIGHTSHIFT ASSUMED CARE OF PT APPROX. 1900. ASSESSMENT COMPLETED, VITAL SIGNS STABLE. PT CURRENLTY ON BIPAP WITH SATS IN 90'S. PT A&O, ALTHOUGH HAS SOME CONFUSION AT TIMES. PT REPORTS PAIN IN CHEST, WHICH IS NOT NEW. PRN PAIN MEDICATION GIVEN PER EMAR. FLANNERY IN PLACE, INTACT AND DRAINING. BED IN LOW POSITION, CALL LIGHT IN REACH AND PT DENIES ANY NEEDS AT THIS TIME.
[2019-01-09 04:42] LABS: BASOPHILS ABSOLUTE AUTO 0.07 K/mm3 (0.00-0.23); BASOPHILS PERCENT AUTO 0 % (0-2); EOSINOPHILS ABSOLUTE AUTO 0.01 K/mm3 (0.00-0.68); EOSINOPHILS PERCENT AUTO 0 % (0-6); Hematocrit 35.5 % (33.0-51.0); Hemoglobin 10.8 g/dL (11.5-16.0); IMMATURE GRAN ABSOLUTE AUTO 0.54 K/mm3 (0.00-0.10); IMMATURE GRAN PERCENT AUTO 1 % (0-1); LYMPHOCYTES ABSOLUTE AUTO 23.52 K/mm3 (0.84-5.20); LYMPHOCYTES PERCENT AUTO 61 % (21-46); MONOCYTES PERCENT AUTO 3 % (4-13); Mean Corpuscular HGB 27.9 pg (26.0-34.0); Mean Corpuscular HGB Conc 30.4 g/dL (31.5-36.5); Mean Corpuscular Volume 92 fL (80-100); Mean Platelet Volume 9.6 fL (9.1-12.4); NEUTROPHILS ABSOLUTE AUTO 13.45 K/mm3 (1.96-9.15); NEUTROPHILS PERCENT AUTO 35 % (41-73); Platelet Count 276 K/mm3 (150-400); RDW Coefficient Variation 14.3 % (11.7-14.2); RDW Standard Deviation 47.8 fL (35.1-46.3); Red Blood Cell Count 3.87 M/mm3 (3.80-5.20); White Blood Cell Count 38.89 K/mm3 (4.00-11.30)
[2019-01-09 04:57] LABS: Albumin, Blood 3.3 g/dL (3.4-5.0); Anion Gap 2 mmol/L (6-16); Blood Urea Nitrogen 20 mg/dL (8-24); Bun/Creatinine Ratio 33.5 (12.0-20.0); CO2, Blood 41 mmol/L (21-32); Chloride, Blood 92 mmol/L (98-108); Glomerular Filtration Rate >60 (60-); Glucose, Blood 167 mg/dL (70-99); Phosphorus, Blood 2.6 mg/dL (2.5-4.9); Potassium, Blood 3.7 mmol/L (3.5-5.5); Sodium, Blood 135 mmol/L (136-145)
[2019-01-09 05:47] LABS: BASOPHILS PERCENT MAN 0 % (0-2); EOSINOPHILS PERCENT MAN 0 % (0-6); LYMPHOCYTES ABSOLUTE MAN 26.44 K/mm3 (0.84-5.20); LYMPHOCYTES PERCENT MAN 68 % (21-46); MONOCYTES ABSOLUTE MAN 0.38 K/mm3 (0.16-1.47); MONOCYTES PERCENT MAN 1 % (4-13); NEUTROPHILS ABSOLUTE MAN 12.05 K/mm3 (1.96-9.15); SEG NEUTROPHILS PERCENT MAN 31 % (41-73); TOTAL CELLS COUNTED 100
--- NOTE | 2019-01-09 07:16 | NUR ---
SHIFT SUMMARY PT PLEASANT, COOPERATIVE AND USES CALL LIGHT APPROPRIATELY. PT A&O X3. PT HAD SOME CONFUSION INTERMITTENTLY. VITAL SIGNS STABLE. PT WORE BIPAP MOST OF NIGHT WITH OXYGEN SATS IN 90'S. PT WAS ABLE TO REST FOR MOST OF SHIFT. BOWEL PROTOCOL GIVEN PER EMAR ORDERS. PT REPORTS ABDOMEN IS UNCOMFORTABLE AND WANTS TO HAVE SOME RELEIF. PT REPORT SHE FEELS BREATHING HAS IMPROVED AND IT IS MUCH EASIER TO BREATH THAN PREVIOUSLY. EDUCATED PT ON WHY SHE IS TO BE ON CLEAR LIQUID DIET AT THIS POINT. FLANNERY REMAIN INTACT, PATENT AND DRAINING. BED IN LOW POSIITON, CALL LIGHT IN REACH AND PT DENIES ANY NEEDS AT THIS TIME. WILL CONTINUE TO MONITOR UNTIL HANDOFF TO DAYSHIFT RN.
--- NOTE | 2019-01-09 10:50 | NUR ---
RECEIVED REPORT AND ASSUMED CARE OF PATIENT. SHE IS SITTING UP IN BED AND REQUESTS MOVING TO THE CHAIR. ONCE SHE IS THERE, SHE IS HUNCHED OVER A BIT AND DOES DESAT WITH MOVEMENT. MOVED BACK TO BED AND REPOSITIONED FOR COMFORT. PT USING 5 LPM VIA NC WITH O2 SAT >92% WHILE SITTING UP IN BED. SET UP KPAD FOR COMFORT AND TO ADDRESS PAIN IN ABDOMEN. WILL CONTINUE TO MONITOR AND FOLLOW ORDERS FOR THIS PATIENT.
--- NOTE | 2019-01-09 11:11 | NUR ---
DR BOCANEGRA TO SEE PATIENT, HE IS GOING TO CONTINUE SOLUMEDROL AND CHECK ON PATIENT TOMORROW.
--- NOTE | 2019-01-09 11:56 | NUR ---
PT EXPERIENCING INCREASED WORK OF BREATHING AND NAUSEA. WILL CALL DOCTOR TO REPORT.
--- NOTE | 2019-01-09 15:09 | NUR ---
INSERT NG TUBE FOR PATIENT COMFORT AND RELIEF OF NAUSEA AND VOMITTING. CALLED DR. CRUZ, SHE STATED ORDER SHOULD BE PLACED UNDER HER NAME. TUBE WAS PLACED FOR PATIENT RELIEF AND IMMEDIATE RETURN OF 150 PLUS DRAINAGE TANISH/CLEAR COLOR.
--- NOTE | 2019-01-09 19:37 | NUR ---
PT HAD A DIFFICULT DAY, HER AFFECT IS DOWNTRODDEN AND SHE HAS CONTINUED TO HAVE NAUSEA AND LABORED BREATHING/GRUNTING OFF AND ON THROUGHOUT. AVOIDED IV PAIN MED DURING SHIFT AND GAVE TYLENOL INSTEAD, PER DOCTOR ORDERS. DURING N/V EVENT DISCUSSED WITH TEAM AND NG TUBE PLACED TO TRY TO RELIEVE PRESSURE, PT TOLERATED INSERTION AND 180 ML OF DRAINAGE OUT. DISCUSSION TODAY WITH PALLATIVE CARE RN DAWSON. THIS RN LET HER KNOW THAT FAMILY (DAUGHTER LILIANA SULLIVAN) IS READY TO HAVE A DISCUSSION ABOUT WHAT THE WISHES ARE IF PT DECLINES. DAUGHTER STATED TO THIS RN THAT IF MOTHER DECLINES AND WAS TO BE ON LIFE SUPPORT SHE DOES NOT WANT TO BE ON LIFE SUPPORT FOR LONG PERIOD, NOR DOES SHE WANT A FEEDING TUBE. PASSED ON INFORMATION FOR PALLATIVE CARE AND THEY WILL SEE FAMILY WHEN THEY ARRIVE TO UNIT TOMORROW 01/10. PATIENT HAS C/O PAIN AT SHIFT CHANGE AND STATES THAT SHE FEELS LIKE MAYBE SHE CAN HAVE A BOWEL MOVEMENT, PUBLIC RELATIONS MANAGER TO ASSIST PATIENT. GAVE REPORT TO NOC RN.
--- NOTE | 2019-01-10 02:20 | NUR ---
PCU NIGHTSHIFT ASSUMED CARE OF PT APPROX. 1900. PT A&O X4. ASSESSMENT COMPLETED, VITAL SIGNS STABLE. PT REPORTS PAIN, PRN PAIN MEDICATION GIVEN PER EMAR. NG TUBE PRESENT, W/ INTERMITENT SUCTION. FLANNERY IN PLACE, INTACT AND DRAINING. BED IN LOW POSITION, CALL LIGHT IN REACH AND PT DENIES ANY NEEDS AT THIS TIME.
--- NOTE | 2019-01-10 02:24 | NUR ---
NOTE NG TUBE REMOVED APPROX 0100. NO CHANGE IN AMOUNT OF DRAINAGE SINCE START OF SHIFT. DAY SHIFT RN REPORTS THAT NG TUBE HAD NOT DRAINED MUCH BUT WAS ABLE TO VARIFIY CORRECT PLACEMENT. NOTED THAT TUBE WAS STILL IN SAME POSITION SINCE INSERTION. SPOKE WITH PT WHO REPORTED THAT SHE DID NOT FEEL IT WAS NESSECARY TO KEEP TUBE IN. SHE STATES IT RESULTED IN MORE DISCOMFORT AND DID NOT HELP NAUSEA WHEN SHE HAD IT EARLIER IN THE DAY. TALKED ABOUT POTENTIAL BENFITS OF TUBE. WAGE AND HOUR INVESTIGATOR COLLABORATED WITH PT AND MYSELF. AFTER DISCUSSION, IT WAS DETERMINED TO REMOVE NG TUBE, IT WAS NOT DRAINING ANYTHING. REMOVAL WNL. PT REPORTS RELIEF AFTER REMOVAL.
[2019-01-10 04:35] LABS: BASOPHILS ABSOLUTE AUTO 0.11 K/mm3 (0.00-0.23); BASOPHILS PERCENT AUTO 0 % (0-2); EOSINOPHILS ABSOLUTE AUTO 0.03 K/mm3 (0.00-0.68); EOSINOPHILS PERCENT AUTO 0 % (0-6); Hematocrit 39.1 % (33.0-51.0); Hemoglobin 11.7 g/dL (11.5-16.0); Mean Corpuscular HGB 28.5 pg (26.0-34.0); Mean Corpuscular HGB Conc 29.9 g/dL (31.5-36.5); Mean Platelet Volume 9.6 fL (9.1-12.4); Platelet Count 283 K/mm3 (150-400); RDW Coefficient Variation 14.3 % (11.7-14.2); RDW Standard Deviation 50.2 fL (35.1-46.3); White Blood Cell Count 42.12 K/mm3 (4.00-11.30)
[2019-01-10 04:36] LABS: IMMATURE GRAN ABSOLUTE AUTO 0.94 K/mm3 (0.00-0.10); IMMATURE GRAN PERCENT AUTO 2 % (0-1); LYMPHOCYTES ABSOLUTE AUTO 25.67 K/mm3 (0.84-5.20); LYMPHOCYTES PERCENT AUTO 61 % (21-46); MONOCYTES ABSOLUTE AUTO 1.71 K/mm3 (0.16-1.47); MONOCYTES PERCENT AUTO 4 % (4-13); Mean Corpuscular Volume 95 fL (80-100); NEUTROPHILS ABSOLUTE AUTO 13.66 K/mm3 (1.96-9.15); NEUTROPHILS PERCENT AUTO 32 % (41-73)
[2019-01-10 05:03] LABS: Albumin, Blood 3.6 g/dL (3.4-5.0); Anion Gap 2 mmol/L (6-16); Blood Urea Nitrogen 25 mg/dL (8-24); Bun/Creatinine Ratio 44.9 (12.0-20.0); CO2, Blood 43 mmol/L (21-32); Calcium, Blood 8.3 mg/dL (8.5-10.1); Chloride, Blood 91 mmol/L (98-108); Creatinine, Blood 0.56 mg/dL (0.40-1.00); Glomerular Filtration Rate >60 (60-); Glucose, Blood 174 mg/dL (70-99); Potassium, Blood 4.1 mmol/L (3.5-5.5); Sodium, Blood 136 mmol/L (136-145)
--- NOTE | 2019-01-10 07:45 | NUR ---
AM ASSESSMENT: Pt lying in bed. Very lethargic. Eyes open to verbal stimulus and does nod head to most yes/no questions after asked multiple times. Pt on 4L NC with Biox 96%. Labored breathing with tachypnea. Asked Pt if she would like to go back on bipap to assist with work of breathing. Pt did not respond but daughter states that she wanted it off so that they could talk. Encouraged them to let up place the Bipap as soon as she was done talking D/T work of breathing. LS very diminished on L side and wheezing in all lobes. BT very hypoactive with very distended abd that is tender and firm to palpation. Valente cath draining clear, yellow urine. Edema in BLE. Pt repositioned with HOB elevated and buttock floated on pillows. Will call Palliative care RN to have conversation with family and PT.
--- NOTE | 2019-01-10 07:48 | NUR ---
SHIFT SUMMARY PT PLEASANT, COOEPRTIVE, AND USES CALL LIGHT APPROPRIATELY. PT REMAINED A&O X4. SINCE LAST NOTE PT HE DECLINED. PT PAIN HAS INCREASED AND PT REPORTS FEELING MORE UNCOMFORTABLE. PT WORK OF BREATHING AND RESPIRATIONS INCREASED THIS AM. PT CONTINUALY ASKED FOR ME TO HELP HER, TO MAKE HER BREATHING BETTER AND TO TAKE HER PAIN AWAY. SHE REPORTED SHE WANTED MEDICATIONS TO MAKE HER BE COMFORTABLE. PHYSICIAN NOTIFIED, AND A ONE TIME DOSE OF PAIN MEDICATION GIVEN. THIS HELPED WITH PAIN SOME BUT PT STILL REPORTED BEING UNCOMFORTABEL AFTER THIS. CHARGE NURSE AND I WERE IN WITH PT AND WERE ABLE TO TALK WITH PT ABOUT WISHES. IT WAS DISCUSSED THAT WITH DOING FULL TREATMENT AND FULL CODE IT WAS RECOMMENDED TO AVOID A LOT OF PAIN MEDICATIONS TO HELP BOWELS BEGIN TO MOVE. IT WS ALSO EXPLAINED THAT IF THE DECISION WAS MADE TO DO COMFORT CARE MORE MEDICATIONS COULD BE GIVEN TO HELP WITH PAIN AND HELP WITH EASY OF BREATHING. PT STATED SHE WISHES TO DO THIS. SHE WANTED TO BE COMFORT CARE. PT STATED SHE WANTED TO BE COMFORTABLE AND FOR HER WORK OF BREATHING TO BE BETTER. PT STATES SHE WANTS TO BE COMFORT CARE BUT WANTS HER DAUGHTER HER AND TO DISCUSS THIS WITH HER DAUGHTER. DAUGHTER WAS NOTIFIED OF THIS. DAUGHTER AT BEDSIDE. EXPLAINED THE PT'S NIGHT, SITUATION AND THE CONVERSATION HAD WITH PT. DAUGHTER WAS INQUIRED ABOUT FURTHER TREATMENTS AND MORE BOWEL CARE. EXPLAINED TO DAUGHTER THIS WAS DUE TO PT WANTING TO POTENTIALY BE COMFORT CARE. WHILE FAMILY WAS HERE PT WAS QUIET AND DID NOT ANSWER QUESTIONS ABOUT WISHES FOR CARE. FAMILY AGREED TO HAVE A CONVERSATION WITH PALLIATIVE CARE RN AND DISCUSS OPTIONS FROM THIS POINT. SPOKE WITH PALLIATIVE CARE RN THIS AM. LET KNOW FAMILY WAS HERE AND ASKED TO SPEAK WITH FAMILY AND PT SOON THEY COULD. PT CURRENLTY IN BED W/ 4L OXYGEN VIA N.C. WITH SATS IN 90'S, ALTHOUGH RESPIRATORY RATE INCREASED. AND PT HAS LABORED BREATHING. DAUGHTER REPORTS PT DENIES BIPAP AT THIS TIME. PT DID NOT ANSWER WHEN ASKED DIRECTLY. FLANNERY IN PLACE, PATNET AND DRAINING. BED IN LOW POSITION, CALL LIGHT IN REACH AND PT DENIES ANY NEEDS AT THIS TIME. WILL CONTINUE TO MONITOR UNTIL HANDOFF TO DAYSHIFT RN.
[2019-01-10 09:04] LABS: PCO2 Arterial > 106 mmHg (35-45); PO2 Arterial 80 mmHg (80-100); pH Blood Arterial 7.23 (7.35-7.45)
--- NOTE | 2019-01-10 09:30 | NUR ---
Recieved report from Zackary STEWARD in PCU [address] Valadez in room assessing prior ot transfer. She was brought over on BIPAP 08/04, changed from 06/[address] Valadez in room and FiO2 40% with sats mid 90%'s. She aroused for brief period to knod yes to intubation and ICU transfer.
--- NOTE | 2019-01-10 09:45 | NUR ---
UPdate: Dr. Wilson, Palliative care rn and myself in room with Pt and family trying to discuss treatment plans (comfort care vs. continued treatment). Pt not very responsive to questions. ABG ordered with critical results. Daughter asking if she is going to go back to ICU. Order for transfer. Report given to NICHELLE Caputo. Pt did open yes and nod yes to ICU transfer and intubation if needed during report to [facility]. Pt transfered on BIPAP. FULL code at this time.
--- NOTE | 2019-01-10 09:46 | NUR ---
Pt visit this AM. Pt resting in bed and on BIPAP. Dr Wilson also present at beginning of visit. Pt is somnolent and struggles with responding to questions. Dr Wilson engaged in discussion regarding goals of care with Pt and family. Conversaton included discussion that was made between hourly shift manager nurse and Pt. Pt had mentioned that she wanted to just be comfortable. Pt's daughter Velia tearful during visit. Pt is to somnolent to respond to conversation. Dr Wilson orders ABG with critical values resulting. Velia appears to not be ready to make any decisions at this time as evidenced by tearfulness and not participating in conversation. Plan for now is for Pt to be transfered to ICU. Stayed behind to offer emotional support. Velia and her leave Pt's room. Palliative care will follow up for therapeutic visits.
--- NOTE | 2019-01-10 10:30 | NUR ---
Patient was 4 person slide transfer. She remains on BIPAP 08/04 at 40% FiO2 and sats 94%. Daughter was at bedside and wrote number down to call. Dr Valadez will wait until noon for ABG and eval and treat then. Patient currently resting. Systolic 140's , HR 80"s and very slow to arouse. She has proctor cath in place draining to gravity yellow urine.
--- NOTE | 2019-01-10 11:42 | NUR ---
Patient continues on same BIPAP settings and sats 98%. ABG at noon to see if setting changes are working. Dr Valadez will re-evaluate shortly after. Family has been in and out. VSS.
[2019-01-10 11:59] LABS: PO2 Arterial 113 mmHg (80-100)
[2019-01-10 12:00] LABS: PCO2 Arterial 93.7 mmHg (35-45)
--- NOTE | 2019-01-10 12:45 | NUR ---
Patient intubated with propofol by Dr Valadez and used 8.0 and 24cm at lips, vent settings AC 18, TV 400, FiO2 40% and PEEP 5.0 and sats mid 90%'s. She was placed on 40mcg/kg/min of Propofol and is lightly sedated r/t hypotension. OG placed at same time.
[2019-01-10 13:48] LABS: PCO2 Arterial 96.5 mmHg (35-45); pH Blood Arterial 7.29 (7.35-7.45)
--- NOTE | 2019-01-10 14:39 | NUR ---
Patient fighting vent and poor volumes and Dr Valadez and RT in room making changes. Increased Propofol to 50mcg/kg/min with Systolics in the 130's while bolus is going. Vent settings currently AC 22, TV 350, FiO2 40% and PEEP 5.0 and sats low 90%. Gave 2mg Ativan and and helped a little. She is still having some hypotension off and on.
--- NOTE | 2019-01-10 18:33 | NUR ---
No changes to last vent setting changes and sats in the mid to upper 90%'s. He systolic 130-140 HR 100's. Her Propofol remains at 50mcg/kg/min and LR at 100ml/hr. Started Vital HP at 30ml/hr and 30ml water flush q4hr. CBG 179 and no coverage. Family at bedside She has small hard formed stool and disimpacted more with some liquid stool about 10 1" round stools. Attends in place.
--- NOTE | 2019-01-10 19:00 | NUR ---
ASSUMING CARE OF PT AT THIS TIME. PT REPORT RECEIVED AT BEDSIDE WITH OFFGOING NURSE, JAIME STEWARD. PT LAYING IN BED, INTUBATED, AND SEDATED UPON ENTERING THE ROOM. VS STABLE - SEE VS FS. PT DOES NOT APPEAR TO BE IN DISTRESS AT THIS TIME. WILL REVIEW PLAN OF CARE.
--- NOTE | 2019-01-10 19:15 | NUR ---
ASSESSMENT PT RESPONDS TO VERBAL AND PAINFUL STIMULI, OPENS EYES TO SOUND, A&O TO SELF, DOES NOT FOLLOW COMMANDS, DOES NOT NOD HEAD Y/N TO QUESTIONS, LOCALIZES PAIN, INTUBATED, SEDATED. PROPOFOL DRIP AT 60 MCG/KG/MIN - WILL TITRATE TO EFFECT. MARGIE SENSATION. PT WEST. GENERALIZED WEAKNESS NOTED. PT IN BILAT WRIST RESTRAINTS TO PROTECT VITAL LINES/CORDS/TUBES AND TO PROTECT FROM SELF-EXTUBATION. PT OCC PULLING ON RESTRAINTS. S/SX OF PAIN/DISCOMFORT NOTED. MEDICATED WITH FENT PER PHYSICIAN'S ORDER / UTILIZED NONPHARM METHODS. EXP AND INS WHEEZING NOTED, DIMINISHED LOWER LOBES. VENT SETTINGS: AC 22, TV 350, PEEP 5, FIO2 40%. OXY SAT >90%. RR 20'S. SUCTION VIA ETT: SMALL AMOUNTS OF THIN CLEAR SECRETIONS. AFEBRILE. NSR. HR 90'S. BP STABLE - SEE VS FS. STRONG PULSES. EDEMA NOTED. COOL, PINK SKIN. BLANKETS APPLIED. HYPOACTIVE BT X4 QUADRANTS. ABD SOFT, NO FACIAL GRIMACING WITH PALPATION, MOD DIST. OG IN PLACE. TF: VHP @ GOAL RATE 30 ML/HR AND 30 ML FLUSH Q4 HR. NO BM. F/C: CLEAR, YELLOW URINE. PICC LOGAN. LR AT 100 ML/HR.
--- NOTE | 2019-01-10 23:05 | NUR ---
DR. AVILES CHEMBG [address]. DR. AVILES IN ICU AT THIS TIME. INFORMED DR. AVILES OF CHEMB[facility] 198. TF: VHP AT 30 ML/HR AND [address] AVILES ORDERED HUMULIN R KAMRAN Q6 HR. WAITING FOR VERIFICATION OF MEDICATION FROM PHARMACY AT THIS TIME.
[2019-01-11 03:23] LABS: BASOPHILS ABSOLUTE AUTO 0.03 K/mm3 (0.00-0.23); BASOPHILS PERCENT AUTO 0 % (0-2); EOSINOPHILS ABSOLUTE AUTO 0.02 K/mm3 (0.00-0.68); EOSINOPHILS PERCENT AUTO 0 % (0-6); Hematocrit 31.5 % (33.0-51.0); Hemoglobin 9.6 g/dL (11.5-16.0); IMMATURE GRAN ABSOLUTE AUTO 0.58 K/mm3 (0.00-0.10); IMMATURE GRAN PERCENT AUTO 2 % (0-1); LYMPHOCYTES ABSOLUTE AUTO 13.44 K/mm3 (0.84-5.20); LYMPHOCYTES PERCENT AUTO 46 % (21-46); MONOCYTES ABSOLUTE AUTO 1.09 K/mm3 (0.16-1.47); MONOCYTES PERCENT AUTO 4 % (4-13); Mean Corpuscular HGB 28.7 pg (26.0-34.0); Mean Corpuscular HGB Conc 30.5 g/dL (31.5-36.5); Mean Corpuscular Volume 94 fL (80-100); Mean Platelet Volume 9.2 fL (9.1-12.4); NEUTROPHILS ABSOLUTE AUTO 13.81 K/mm3 (1.96-9.15); NEUTROPHILS PERCENT AUTO 48 % (41-73); Platelet Count 195 K/mm3 (150-400); RDW Coefficient Variation 14.4 % (11.7-14.2); RDW Standard Deviation 50.2 fL (35.1-46.3); Red Blood Cell Count 3.35 M/mm3 (3.80-5.20); White Blood Cell Count 28.97 K/mm3 (4.00-11.30)
[2019-01-11 03:40] LABS: Albumin, Blood 2.7 g/dL (3.4-5.0); Anion Gap 2 mmol/L (6-16); Blood Urea Nitrogen 34 mg/dL (8-24); Bun/Creatinine Ratio 51.6 (12.0-20.0); CO2, Blood 43 mmol/L (21-32); Calcium, Blood 7.9 mg/dL (8.5-10.1); Chloride, Blood 94 mmol/L (98-108); Creatinine, Blood 0.66 mg/dL (0.40-1.00); Glomerular Filtration Rate >60 (60-); Glucose, Blood 204 mg/dL (70-99); Magnesium, Blood 3.1 mg/dL (1.6-2.4); Phosphorus, Blood 1.4 mg/dL (2.5-4.9); Potassium, Blood 3.6 mmol/L (3.5-5.5); Sodium, Blood 139 mmol/L (136-145)
--- NOTE | 2019-01-11 04:15 | NUR ---
DR. TRACI AVILES IN ICU AT THIS TIME. INFORMED DR. AVILES OF AM LABS. DR. AVILES ORDERED POTASSIUM PHOS 30 MM IV. WAITING FOR MEDICATION FROM PHARMACY AT THIS TIME.
--- NOTE | 2019-01-11 04:17 | NUR ---
SHIFT ASSESSMENT NO ACUTE CHANGES NOTED T/O SHIFT. SEDATION VACATION COMPLETED THIS AM WITH PROPOFOL ON STANDBY. DURING SEDATION VACATION: PT RESPONDED TO VERBAL STIMULI, OPENED EYES SPONT, A&O TO SELF, FOLLOWED COMMANDS (ABLE TO WIGGLE TOES AND [employer] ANALYST EQUALLY ON COMMAND), NODDED HEAD Y/N TO QUESTIONS, LOCALIZES PAIN. INCREASED ANXIETY, AGITATION, RESTLESSNESS, AND PULLING ON RESTRAINTS NOTED WITH DECREASED SEDATION AND INCREASED STIMULI. PROPOFOL DRIP CURRENTLY AT 50 MCG/KG/MIN - CONT TO TITRATE TO EFFECT. PT NODDED HEAD YES TO SENSATION INTACT ALL EXTREMETIES. PT NODDED HEAD NO TO N/T ALL EXTREMETIES. PT WEST. GENERALIZED WEAKNESS NOTED. PT IN BILAT WRIST RESTRAINTS TO PROTECT VITAL LINES/CORDS/TUBES AND TO PROTECT FROM SELF-EXTUBATION. OCC S/SX OF PAIN/DISCOMFORT NOTED. PT NODDED HEAD YES TO PAIN/DISCOMFORT THIS AM. CONT TO ASSESS FOR PAIN/DISCOMFORT AND MEDICATED WITH FENT PER PHYSICIAN'S ORDER / UTILLIZED NONPHARM METHODS. EXPIRATORY AND INSPIRATORY WHEEZING NOTED T/O, DIMINISHED LOWER LOBES. VENT SETTINGS: AC 22, TV 350, PEEP 5, FIO2 40%. OXY SAT >90%. RR 20'S. SUCTION VIA ETT: SMALL AMOUNTS OF THIN CLEAR SECRETIONS TO SMALL AMOUNTS OF THICK WHITE SECRETIONS. AFEBRILE. NSR TO ST WITH OCC PAC'S. HR 90'S TO 110'S. BP STABLE EXCEPT INCREASED BP NOTED DURING SEDATION VACATION - SEE VS FS. STRONG PULSES. EDEMA NOTED. WARM, PINK SKIN. HYPOACTIVE BT X4 QUADRANTS. ABD SOFT, NO FACIAL GRIMACING WITH PALPATION, MOD DIST. OG IN PLACE. TF: VHP @ GOAL RATE 30 ML/HR AND 30 ML FLUSH Q4 HR. RESIDUAL 0. NO BM. F/C: CLEAR, YELLOW URINE. PICC LOGAN. LR AT 100 ML/HR. WILL CONT TO MONITOR PT AND WILL PROVIDE BEDSIDE REPORT TO ONCOMING NURSE THIS AM.
[2019-01-11 05:42] LABS: PCO2 Arterial 63.3 mmHg (35-45); pH Blood Arterial 7.45 (7.35-7.45)
--- NOTE | 2019-01-11 07:49 | NUR ---
ASSUMED CARE PT REMAINS ON VENT AC22/350/40/5 AND IS SAT'ING 95+. CURRENTLY INFUSING: LR @ 100ML/HR, KPHOS @ 100ML/HR, AND PROPOFOL @ 50MCG/KG/MIN. PT HAS TUBE FEEDING OF VITAL HIGH INFUSING AT 30ML/HR. PT IS ADEQUETLY SEDATED AT THIS TIME.
--- NOTE | 2019-01-11 10:48 | NUR ---
PT IS CONFUSED, SHE IS SOMEWHAT ALERT AND ORIENTED TO SELF, DAUGHTER, AND OCCASIONALLY LOCATION. SOMETIMES BELIEVES SHES IN A DIFFERENT COUNTRY; MAKES STATEMENT "[place] TO [place] WILL SOMETIMES RESPOND WITH "[facility]" BUT SHE WAS TOLD THIS 01/10. PT CAN RESPOND TO BASIC QUESTIONS WITH SPEECH, SAYING 1-3 WORDS. CAN FOLLOW SIMPLE COMMANDS; "SQUEEZE MY FINGERS, WIGGLE YOUR TOES", AND CAN NOD YES/NO TO BASIC QUESTIONS. PT HAS EQUAL, BUT WEAK BILATERAL PRINT COLOR MATCHER STRENGTH. 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 PT APPEARS TO BE IN PAIN WHEN REPOSITIONED BUT SHOWS RELIEF WHEN REPOSITIONING IS OVER.
--- NOTE | 2019-01-11 11:30 | NUR ---
DALJIT IN ROOM ASSESSING PT STATES WHEEZINESS AND PEAK PRESSURES ARE WORSENING. PLANS TO GIVE OCTREOTIDE IV AND TO REASSESS, IF THAT DOESN'T DECREASE WHEEZINESS/PEAK PRESSURES, THEN WILL TRY RACEPRINEPHRINE AND LIDOCAINE THROUGH ETT.
--- NOTE | 2019-01-11 13:00 | NUR ---
OCTREOTIDE (500MCG) GIVEN TO PT WITH MINIMAL DECREASE IN WHEEZINESS; PEAK PRESSURES STILL ELEVATED (45-50), RACEPRINEPHRINE THROUGH ETT RECOMMENDED.
--- NOTE | 2019-01-11 14:30 | NUR ---
RACEPINEPHRINE (5.625MG INH) GIVEN THROUGH ETT. AGAIN, MINIMAL TO NO CHANGE IN WHEEZINESS & PEAK PRESSURES. LIDOCAINE THROUGH ETT RECOMMENDED.
--- NOTE | 2019-01-11 15:56 | NUR ---
LIDOCAINE VIA ETT TUBE MAY HAVE WORSENED BRONCHOCONSTRICTION IN LUNGS, PT' HAS SLIGHTLY INCREASED WHEEZINESS AND PEAK PRESSURES HAVE BEEN UPPER 40'S. GOSMAN AWARE, AND IS TO ORDER A BOLUS OF KETAMINE.
--- NOTE | 2019-01-11 17:59 | NUR ---
DR BOCANEGRA IN ROOM ASSESSING PATIENT; CHANGED VENT SETTINGS TO AC18, PEAK PRESSURES HAVE GONE DOWN TO 30'S. ALSO SAYS TO GO AHEAD WITH KETAMINE DRIP FOR 2 - 3 HOURS TO SEE IF THAT IS EFFECTIVE. KETAMINE INFUSING AT 95MG/HR. BLOOD PRESSURE STABLE, SEE VITAL SIGNS.
--- NOTE | 2019-01-11 18:02 | NUR ---
SHIFT SUMMARY PT REMAINS ON VENT AT AC18/350/40/5; CURRENT GTTPS: PROPOFOL 50MCG/KG/MIN, KETAMINE 95MG/HR, AND LR 100ML/HR. PT WAS NOT FOLLOWING COMMANDS DURING SEDATION VACATION THIS MORNING; PUPILS ARE ROUND, EQUAL AND REACTIVE. PT HAS BEEN SEDATED ADEQUETLY SINCE BEGINNING OF SHIFT, SHOWING A CNVI OF 0-1 (RESTLESS OCCASIONALLY) THROUGHOUT. PT HAS BEEN FAIRLY HEMODYNAMICALLY, APPROXIMETLY 4 HOURS AFTER CARDIZEM GIVEN MAP'S WERE IN 50'S BUT CAME BACK UP AND HAS BEEN IN THE 90'S AND HR HAS BEEN SINUS TACH (90'S-115) ALL DAY. LUNG SOUNDS HAVE BEEN WHEEZY AND PEAK PRESSURES HAVE REMAINED ELEVATED THROUGHOUT SHIFT WITH SOME IMPROVEMENT WITH THE SWITCH IN AC22-->AC18; (PIP: 45-50'S -->30'S). OCTREOTIDE, RACEPINEPHRINE, AND LIDOCAINE WERE USED TODAY TO HELP WHEEZINESS/INCREASED PIP (SEE PAST NOTES). RESIDUALS HAVE BEEN < 40 ALL DAY, HYPOACTIVE BOWEL SOUNDS; BOWEL PREP GIVEN THIS MORNING, BUT NO BOWEL MOVEMENT TODAY. DAUGHTER UPDATED ON POC AND RATIONALE BEHIND INTERVENTIONS USED TODAY.
--- NOTE | 2019-01-11 19:15 | NUR ---
ASSUMING CARE OF PT AT THIS TIME. PT REPORT RECEIVED AT BEDSIDE WITH OFFGOING NURSES, JAIME RN AND JODY RN. PT LAYING IN BED, INTUBATED, AND SEDATED UPON ENTERING THE ROOM. VS STABLE - SEE VS FS. PT DOES NOT APPEAR TO BE IN DISTRESS AT THIS TIME. WILL REVIEW PLAN OF CARE.
--- NOTE | 2019-01-11 19:30 | NUR ---
ASSESSMENT PT RESPONDS TO PAINFUL STIMULI, OPENS EYES TO PRESSURE, A&O TO SELF. DOES NOT FOLLOWS COMMADNS, DOES NOT NOD HEAD Y/N TO QUESTIONS, LOCALIZES PAIN, INTUABTED, SEDATION. PROPOFOL DRIP AT 40 MCG/KG/MIN - WILL TITRATE TO EFFECT. MARGIE SENSATION. PT WEST. GENERALIZED WEAKNESS NOTED. PT IN BILAT WRIST RESTRAINTS TO PROTECT VITAL LINES/CORDS/TUBES AND TO PROTECT FROM SELF-EXTUBATION. PT OCC PULLING ON RESRAINTS. NO S/SX OF PAIN/DISCOMFORT NOTED. EXP AND INS WHEEZING NOTED, DIMINIHSED LOWER LOBES. VENT SETTINGS: AC 18, TV 350, PEEP 5, FIO2 40%. OXY SAT >90%. RR 18. SUCTION VIA ETT: SMALL AMOUNTS OF THICK WHITE SECRETIONS. AFEBRILE. NSR. HR 90'S. BP STABLE - SEE VS FS. STRONG PULSES. EDEMA NOTED. WARM, PINK SKIN. HYPOACTIVE BT X4 QUADRNATS. ABD SOFT, NO FACIAL GRIMACING WITH PALPATION, MOD DIST. OG IN PLACE. TF: VHP @ GOAL RATE 30 ML/HR AND 30 ML FLUSH Q4 HR. NO BM. F/C: CLEAR, YELLOW URINE. PICC LOGAN. LR AT 100 ML/HR.
[2019-01-12 04:00] LABS: BASOPHILS ABSOLUTE AUTO 0.06 K/mm3 (0.00-0.23); BASOPHILS PERCENT AUTO 0 % (0-2); EOSINOPHILS ABSOLUTE AUTO 0.01 K/mm3 (0.00-0.68); EOSINOPHILS PERCENT AUTO 0 % (0-6); Hematocrit 34.8 % (33.0-51.0); Hemoglobin 10.5 g/dL (11.5-16.0); Mean Corpuscular HGB 28.3 pg (26.0-34.0); Mean Corpuscular HGB Conc 30.2 g/dL (31.5-36.5); Mean Corpuscular Volume 94 fL (80-100); Mean Platelet Volume 9.9 fL (9.1-12.4); NRBC ABSOLUTE 0.02 K/mm3 (0.00-0.02); Platelet Count 200 K/mm3 (150-400); RDW Coefficient Variation 14.7 % (11.7-14.2); RDW Standard Deviation 50.9 fL (35.1-46.3); Red Blood Cell Count 3.71 M/mm3 (3.80-5.20)
[2019-01-12 04:02] LABS: IMMATURE GRAN ABSOLUTE AUTO 0.79 K/mm3 (0.00-0.10); IMMATURE GRAN PERCENT AUTO 2 % (0-1); LYMPHOCYTES ABSOLUTE AUTO 17.83 K/mm3 (0.84-5.20); LYMPHOCYTES PERCENT AUTO 44 % (21-46); MONOCYTES ABSOLUTE AUTO 1.42 K/mm3 (0.16-1.47); MONOCYTES PERCENT AUTO 4 % (4-13); NEUTROPHILS ABSOLUTE AUTO 20.09 K/mm3 (1.96-9.15); NEUTROPHILS PERCENT AUTO 50 % (41-73)
[2019-01-12 04:17] LABS: Albumin, Blood 2.9 g/dL (3.4-5.0); Anion Gap 2 mmol/L (6-16); Blood Urea Nitrogen 28 mg/dL (8-24); Bun/Creatinine Ratio 48.5 (12.0-20.0); CO2, Blood 40 mmol/L (21-32); Calcium, Blood 7.6 mg/dL (8.5-10.1); Chloride, Blood 94 mmol/L (98-108); Creatinine, Blood 0.58 mg/dL (0.40-1.00); Glomerular Filtration Rate >60 (60-); Glucose, Blood 182 mg/dL (70-99); Magnesium, Blood 2.8 mg/dL (1.6-2.4); Phosphorus, Blood 3.3 mg/dL (2.5-4.9); Potassium, Blood 4.4 mmol/L (3.5-5.5); Sodium, Blood 136 mmol/L (136-145)
--- NOTE | 2019-01-12 04:49 | NUR ---
SHIFT ASSESSMENT NO ACUTE CHANGES NOTED T/O SHIFT. SEDATION VACATION COMPLETED THIS AM WITH PROPOFOL ON STANDBY. DURING SEDATION VACATION: PT RESPONDED TO VERBAL STIMULI, OPENED EYES SPONT, A&O TO SELF, FOLLOWED COMMANDS (ABLE TO WIGGLE TOES AND HEALTH CARE MARKETING MANAGER EQUALLY ON COMMAND), NODDED HEAD Y/N TO QUESTIONS, LOCALIZES PAIN. INCREASED ANXIETY, AGITATION, RESTLESSNESS, AND PULLING ON RESTRAINTS NOTED WITH DECREASED SEDATION AND INCREASED STIMULI. PROPOFOL DRIP CURRENTLY AT 50 MCG/KG/MIN - CONT TO TITRATE TO EFFECT. KETAMINE DRIP AT 95 ML/HR (1 MG/KG). PTNODDED HEAD YES TO SENSATION INTACT ALL EXTREMETIES. PT NODDED HEAD NO TO N/T ALL EXTREMETIES. PT WEST. GENERALIZED WEAKNESS NOTED. PT IN BILAT WRIST RESTRAINTS TO PROTECT VITAL LINES/CORDS/TUBES AND TO PROTECT FROM SELF-EXTUBATION. S/SX OF PAIN/DISCOMFORT NOTED DURING SEDATION VACATION. PT NODDED HEAD YES TO PAIN/DISCMOFORT DURING SEDATION VACATION. CONT TO ASSESS FOR PAIN/DISCOMFORT AND MEDICATED WITH FENT PER PHYSICIAN'S RODER / UTILIZED NONPHARM METHODS. EXP AND INS WHEEZING NOTED T/O, DIMINIHSED LOWER LOBES. VENT SETTINGS: AC 18, TV 350, PEEP 5, FIO2 40%. OXY SAT >90%. RR 18 TO 30'S. SUCTION VIA ETT: SMALL AMOUNTS OF THICK WHITE SECRETIONS. AFEBRILE. NSR WITH OCC PAC'S. HR 90'S. BP STABLE EXCEPT INCREASED BP NOTED DURING SEDATION - SEE VS FS. STRONG PULSES. EDEMA NOTED. WARM, PINK SKIN. HYPOACTIVE BT X4 QUADRANTS. ABD SOFT, NO FACIAL RIMACING WITH PALPATION, MOD DIST. OG IN PLACE. TF: VHP @ GOAL RATE 30 ML/HR AND 30 ML FLUSH Q4 HR. NO BM. F/C: CLEAR, YELLOW URINE. PICC LOGAN. LR AT 100 ML/HR. WILL CONT TO MONITOR PT AND WILL PROVIDE BEDSIDE REPORT TO ONCOMING NURSE THIS AM.
[2019-01-12 05:16] LABS: PO2 Arterial 76.3 mmHg (80-100); pH Blood Arterial 7.38 (7.35-7.45)
[2019-01-12 05:17] LABS: PCO2 Arterial 72.8 mmHg (35-45)
--- NOTE | 2019-01-12 08:24 | NUR ---
DR DEMARCO ROUNDS DR DEMARCO ROUNDED, UPDATED ON PT STATUS THROUGH THE NIGHT. NO CHANGE TO PLAN OF CARE AT THIS TIME. WILL CONT TO MONITOR PT.
--- NOTE | 2019-01-12 14:43 | NUR ---
ASSUMED CARE PT. REMAINS SEDATED IN INTUBATED. REPORT FROM OFFGOING RN. PT. VSS AT THIS TIME. REMAINS ON KETAMINE GTT AT 95ML/HR AND PROPOFOL GTT AT 30MCG/KG/MIN PT. APPEARS TO BE RESTING COMFORTABLY IN BED AT THIS TIME. FLANNERY IN PLACE DRAINING TO GRAVITY. CHRIS.
--- NOTE | 2019-01-12 15:39 | NUR ---
PER DR. LICEA ORDER KETAMINE OFF AT THIS TIME
--- NOTE | 2019-01-12 17:00 | NUR ---
INITIAL ASSESSMENT ASSUMED CARE OF PT. PT VENTILATED AND ON SEDATION. PT AFEBRILE. INS/EXP WHEEZES T/O LUNG KAUFFMAN. PT SATTING 90% OR GREATER ON VENT SETTINGS: A/C 18, TV 350, PEEP 5, 40% FIO2. NRS/ST W OCCASIONAL PACS. HR IN THE 100'S TO 1-TEENS. BP STABLE. 1+ EDEMA BUE/BLE. OG IN PLACE W/ VHP INFUSING AT GOAL RATE OF 25 ML/HR W/ 30ML FLUSH Q4. FLANNERY PATENT AND DRAINING CLEAR YELLOW URINE TO GRAVITY. BRUISING T/O. PROPOFOL 40 MCG/KG/MIN. LR 100 ML/HR. BED LOW, CALL LIGHT IN REACH. WILL CONTINUE TO MONITOR.
--- NOTE | 2019-01-12 17:45 | NUR ---
PT TO CT.
--- NOTE | 2019-01-12 18:00 | NUR ---
PT RETURNED FROM CT.
--- NOTE | 2019-01-12 18:44 | NUR ---
NO ACUTE CHANGES NOTED SINCE ASSUMPTION OF CARE. PT TO CT FOR PE STUDY. PT RESTING COMFORTABLY IN BED. NO SIGNS OF PAIN AT THIS TIME. VSS. WILL REPORT TO ONCOMING RN SHORTLY.
--- NOTE | 2019-01-12 19:50 | NUR ---
ASSUMED CARE BEDSIDE REPORT RECIEVED. PT IS INTUBATED AND SEDATED. VENT AC 18, TV 350, PEEP 5, FIO2 40%. VITAL SIGNS STABLE AT THIS TIME. PICC TO LOGAN C/D/I WITH PROPOFOL INFUSING AT 40 MCG/KG/MIN, AND LR AT 100 ML/HR. OGT IN PLACE WITH TF AT 25 ML/HR GOAL RATE. FLANNERY IN PLACE WITH CLEAR YELLOW OUTPUT NOTED. SBW RESTRAINTS IN PLACE. NO FAMILY AT BEDSIDE. PT OPENS EYES TO VERBAL STIMULI AND GRIMMACES WITH CARE, BUT NOT FOLLOWING COMMANDS AT THIS TIME. WILL CONTINUE TO MONITOR.
--- NOTE | 2019-01-13 04:05 | NUR ---
ATTEMPTED TO WEAN PT, PT IS HAVING BRONCHOSPASMS (TIGHT AND WHEEZY) BP PRESSURE INCREASED TO 191/81, PLACED PT ON PS 7/5 THEN UP TO 10/5 PT ON BRING IN <200 VT. STOPPED WEAN, WEAN WAS LESS THAN 2 MIN. TO RISKY TO WEAN PT AT THIS TIME.
[2019-01-13 04:44] LABS: EOSINOPHILS ABSOLUTE AUTO 0.01 K/mm3 (0.00-0.68); EOSINOPHILS PERCENT AUTO 0 % (0-6); Hematocrit 33.7 % (33.0-51.0); Hemoglobin 10.2 g/dL (11.5-16.0); Mean Corpuscular HGB 27.9 pg (26.0-34.0); Mean Corpuscular HGB Conc 30.3 g/dL (31.5-36.5); Mean Corpuscular Volume 92 fL (80-100); Mean Platelet Volume 9.8 fL (9.1-12.4); Platelet Count 168 K/mm3 (150-400); RDW Coefficient Variation 14.7 % (11.7-14.2); RDW Standard Deviation 49.5 fL (35.1-46.3); Red Blood Cell Count 3.65 M/mm3 (3.80-5.20); White Blood Cell Count 49.98 K/mm3 (4.00-11.30)
[2019-01-13 04:48] LABS: BASOPHILS ABSOLUTE AUTO 0.03 K/mm3 (0.00-0.23); BASOPHILS PERCENT AUTO 0 % (0-2); IMMATURE GRAN ABSOLUTE AUTO 1.15 K/mm3 (0.00-0.10); IMMATURE GRAN PERCENT AUTO 2 % (0-1); LYMPHOCYTES ABSOLUTE AUTO 18.46 K/mm3 (0.84-5.20); LYMPHOCYTES PERCENT AUTO 37 % (21-46); MONOCYTES ABSOLUTE AUTO 1.77 K/mm3 (0.16-1.47); MONOCYTES PERCENT AUTO 4 % (4-13); NEUTROPHILS ABSOLUTE AUTO 28.56 K/mm3 (1.96-9.15); NEUTROPHILS PERCENT AUTO 57 % (41-73)
[2019-01-13 04:59] LABS: Albumin, Blood 2.8 g/dL (3.4-5.0); Anion Gap 0 mmol/L (6-16); Blood Urea Nitrogen 30 mg/dL (8-24); Bun/Creatinine Ratio 53.6 (12.0-20.0); CO2, Blood 39 mmol/L (21-32); Calcium, Blood 7.8 mg/dL (8.5-10.1); Chloride, Blood 97 mmol/L (98-108); Creatinine, Blood 0.56 mg/dL (0.40-1.00); Glomerular Filtration Rate >60 (60-); Glucose, Blood 156 mg/dL (70-99); Phosphorus, Blood 2.7 mg/dL (2.5-4.9); Potassium, Blood 5.1 mmol/L (3.5-5.5); Sodium, Blood 136 mmol/L (136-145)
[2019-01-13 05:57] LABS: BASOPHILS PERCENT MAN 0 % (0-2); EOSINOPHILS PERCENT MAN 0 % (0-6); LYMPHOCYTES ABSOLUTE MAN 24.49 K/mm3 (0.84-5.20); LYMPHOCYTES PERCENT MAN 49 % (21-46); MONOCYTES ABSOLUTE MAN 1.99 K/mm3 (0.16-1.47); MONOCYTES PERCENT MAN 4 % (4-13); NEUTROPHILS ABSOLUTE MAN 23.49 K/mm3 (1.96-9.15); SEG NEUTROPHILS PERCENT MAN 47 % (41-73); TOTAL CELLS COUNTED 100
--- NOTE | 2019-01-13 06:08 | NUR ---
SHIFT SUMMARY NO ACUTE CHANGES THIS SHIFT. PT HAS REMAINED SEDATED ON VENT. VENT REMAINS AT AC 18, TV 350, PEEP 5, FIO2 40%. PROPOFOL AT 50 MCG/KG/MIN. LR INFUSING AT 100 ML/HR. VITAL SIGNS HAVE REMAINED STABLE ASIDE FROM SBT THIS AM. DURING SBT PT BECAME HYPERTENSIVE WITH SBP 190'S AND TIDAL VOLUMES 150-250'S. OGT REMAINS IN PLACE WITH TF AT 25 ML/HR GOAL, MINIMAL RESIDUALS NOTED. FLANNERY REMAINS IN PLACE WITH GOOD URINE OUTPUT. SBW RESTRAINTS IN PLACE. WILL CONTINUE TO MONITOR AND REPORT OFF TO ONCOMING RN.
--- NOTE | 2019-01-13 09:49 | NUR ---
INITIAL ASSESSMENT PT VENTILATED AND ON SEDATION. PT AFEBRILE. NO SIGNS OF PAIN OR DISCOMFORT AT THIS TIME. INS/EXP WHEEZES T/O. SATTING 90% OR GREATER ON VENT SETTINGS: A/C 18, TV 350, PEEP 5, 40% FIO2. SMALL AMOUNT OF THICK LOPEZ SPUTUM NOTED IN ETT WHILE SUCTIONING. NSR. HR 90S. BP STABLE. 1+ EDEMA IN BUE/BLE. OG IN PLACE W/ VHP INFUSING GOAL RATE 25 ML/HR. FLANNERY IN PLACE DRAINING CLEAR, YELLOW URINE. BRUISING T/O BODY. PROPOFOL 40 MCG/KG/MIN. LR 100 ML/HR. BED LOW, CALL LIGHT IN REACH. WILL CONTINUE TO MONITOR.
--- NOTE | 2019-01-13 13:08 | NUR ---
PT HAD TEMPERATURE OF 99.3 DEGREES FAHRENHEIT. BLANKETS REMOVED. NO SIGNS OF PAIN AT THIS TIME. HR LOW 100S. SINUS TACH. BP REMAINS STABLE. RESIDUALS OF TUBE FEED 0 ML. NO OTHER ACUTE CHANGES TO NOTE ON AT THIS TIME. WILL CONTINUE TO MONITOR.
--- NOTE | 2019-01-13 17:02 | NUR ---
PT HAS TEMPERATURE OF 99.1 DEGREES FAHRENHEIT. FAN PLACED ON PT. PT HAS NO SIGNS OF PAIN OR DISCOMFORT NOTED AT THIS TIME. PT APPEARS SLIGHTLY ANXIOUS, BUT IS FOLLOWING SOME SIMPLE COMMANDS. MOVEMENT NOTED IN ALL EXTREMITIES. RESIDUALS OF 30 ML OBTAINED, AND REINSTILLED. NO OTHER ACUTE CHANGES TO NOTE AT THIS TIME. WILL CONTINUE TO MONITOR.
--- NOTE | 2019-01-13 18:17 | NUR ---
SHIFT SUMMARY PT VENTILATED AND ON SEDATION. PT ANXIOUS AT TIMES, BUT FOLLOWS SOME SIMPLE COMMANDS. PT AFEBRILE NOW, BUT HAD A T-MAX OF 99.1 DEGREES THIS SHIFT. FAN PLACED AT BEDSIDE. PT STAYED ON SAME VENT SETTINGS THROUGHOUT SHIFT. PT CONTINUES TO HAVE WHEEZES T/O. MODERATE AMOUNT OF THICK LOPEZ SECRETIONS NOTED FROM ETT. PT REMAINS IN SINUS TACH. HR LOW 100S. BP STABLE. OG IN PLACE W/ VHP INFUSING AT GOAL RATE OF 25 ML/HR. RESIDUALS WERE 0 AND 30 ML REINSTILLED. PT DID NOT HAVE BM THIS SHIFT. FLANNERY DRAINED ADEQUATE AMOUNT OF YELLOW URINE W/ SEDIMENT. NO CHANGES IN SKIN. PROPOFOL 50 MCG/KG/MIN. LR 100 ML/HR. NO OTHER ACUTE CHANGES TO NOTE AT THIS TIME. WILL REPORT TO ONCOMING RN.
--- NOTE | 2019-01-13 19:30 | NUR ---
ASSUMED CARE REPORT RECIEVED. PT IS RESTING IN BED SEDATED ON VENT. VENT SETTINGS AC 18, TV 350, PEEP 5, FIO2 40%. PT WITH LARGE AMOUNT OF FROTHY, THICK, YELLOW SECRETIONS WITH ETT SUCTION. VITAL SIGNS STABLE AT THIS TIME. PT WITH PICC TO LOGAN C/D/I. PROPOFOL INFUSING AT 50 MCG/KG/HR AND LR AT 100 ML/HR. OGT IN PLACE WITH TF AT 25 ML/HR GOAL RATE. FLANNERY IN PLACE WITH YELLOW OUTPUT NOTED. SBW RESTRAINTS IN PLACE. PT OPENS EYES TO VERBAL STIMULI AND IS ABLE TO SQUEEZE HANDS UPON COMMAND. WILL CONTINUE TO MONITOR.
[2019-01-14 03:53] LABS: Hematocrit 32.8 % (33.0-51.0); Mean Corpuscular HGB 28.6 pg (26.0-34.0); Mean Corpuscular HGB Conc 30.5 g/dL (31.5-36.5); Mean Corpuscular Volume 94 fL (80-100); Mean Platelet Volume 9.8 fL (9.1-12.4); Platelet Count 133 K/mm3 (150-400); RDW Coefficient Variation 14.9 % (11.7-14.2); RDW Standard Deviation 50.7 fL (35.1-46.3)
[2019-01-14 04:06] LABS: Albumin, Blood 2.5 g/dL (3.4-5.0); Anion Gap 0 mmol/L (6-16); Blood Urea Nitrogen 31 mg/dL (8-24); Bun/Creatinine Ratio 64.6 (12.0-20.0); CO2, Blood 40 mmol/L (21-32); Chloride, Blood 99 mmol/L (98-108); Creatinine, Blood 0.48 mg/dL (0.40-1.00); Glomerular Filtration Rate >60 (60-); Glucose, Blood 165 mg/dL (70-99); Phosphorus, Blood 3.3 mg/dL (2.5-4.9); Potassium, Blood 4.9 mmol/L (3.5-5.5); Sodium, Blood 139 mmol/L (136-145)
--- NOTE | 2019-01-14 04:39 | NUR ---
SBT- PT WAS OFF SEDATION ABOUT 10 MINS, PT ALERT, FOLLOW COMMANDS BUT VERY ANXIOUS, PT WAS ONLY BRING IN 150-250 VT ON A PS 15/5. INLINE BR. TX B/S TIGHT AND WHEEZY. STOPPED SBT. SATS REMAINED 92-95 T/O, RR 20-25. PT FAILED WEAN
[2019-01-14 05:49] LABS: BAND PERCENT MAN 1 % (0-8); BASOPHILS PERCENT MAN 0 % (0-2); EOSINOPHILS PERCENT MAN 0 % (0-6); LYMPHOCYTES ABSOLUTE MAN 14.65 K/mm3 (0.84-5.20); LYMPHOCYTES PERCENT MAN 33 % (21-46); MONOCYTES ABSOLUTE MAN 0.88 K/mm3 (0.16-1.47); MONOCYTES PERCENT MAN 2 % (4-13); NEUTROPHILS ABSOLUTE MAN 28.86 K/mm3 (1.96-9.15); SEG NEUTROPHILS PERCENT MAN 64 % (41-73); TOTAL CELLS COUNTED 100
--- NOTE | 2019-01-14 06:11 | NUR ---
SHIFT SUMMARY NO ACUTE CHANGES THIS SHIFT. PT HAS REMAINED SEDATED ON VENT. VENT SETTINGS AC 18, TV 350, PEEP 5, FIO2 40%. PT DID NOT DO WELL WITH SBT THIS AM AGAIN. PT CONTINUES TO HAVE LOW TIDAL VOLUMES WHEN ON PRESSURE SUPPORT. VITAL SIGNS HAVE REMAINED STABLE THROUGHOUT THE SHIFT. PICC TO LOGAN C/D/I WITH PROPOFOL AT 50 MCG/KG/MIN AND LR AT 100 ML/HR. PT AWAKENS TO VERBAL STIMULI WHEN OFF SEDATION AND IS ABLE TO FOLLOW SIMPLE COMMANDS. SBW RESTRAINTS REMAIN IN PLACE. OGT IN PLACE WITH TF AT 25 ML/HR GOAL RATE AND NO RESIDUALS THIS SHIFT. FLANNERY IN PLACE WITH GOOD URINE OUTPUT. WILL CONTINUE TO MONITOR AND REPORT OFF TO ONCOMING RN.
--- NOTE | 2019-01-14 08:53 | NUR ---
INITIAL ASSESSMENT PT INTUBATED AND ON SEDATION. PT AFEBRILE. INS/EXP WHEEZES HEARD T/O. SMALL FROTHY WHITE SECRETIONS SUCTIONED FROM ETT. SATTING 90% OR GREATER ON VENT SETTINGS: A/C 18, TV 350, PEEP 5, 40% FIO2. SINUS TACH. HR [id number]. BP STABLE. OG IN PLACE, INFUSING VHP AT GOAL RATE OF 25 ML/HR WITH 30 ML FLUSH Q4 HOURS. TYMPANIC BS NOTED T/O. FLANNERY PATENT, DRAINING YELLOW URINE WITH SOME SEDIMENT. BRUISING NOTED T/O. PROPOFOL 40 MCG/KG/MIN. LR 100 ML/HR. BED LOW, CALL LIGHT IN REACH. WILL CONTINUE TO MONITOR.
--- NOTE | 2019-01-14 13:09 | NUR ---
PT INTUBATED AND ON SEDATION. PT AFEBRILE. PT FOLLOWING SOME SIMPLE COMMANDS. PT MEDICATED WITH PRN FENTANYL FOR RESTLESSNESS. SATTING 90% OR GREATER ON VENT SETTINGS: A/C 18, TV 350, PEEP 5, FIO2 45%. WHEEZES NOTED T/O. MODERATE, THICK, YELLOW/LOPEZ, SECRETIONS SUCTIONED FROM ETT. SPUTUM SAMPLE COLLECTED AND SENT TO LAB. OG INFUSING VHP 25ML/HR, RESIDUALS 0 ML REINSTILLED. NO NEW CHANGES TO NOTE IN SKIN. PROPOFOL 50 MCG/KG/MIN. LR 100 ML/HR. AMINOPHYLLINE 40 ML/HR. NO OTHER ACUTE CHANGES TO NOTE AT THIS TIME. BED LOW, CALL LIGHT IN REACH. WILL CONTINUE TO MONITOR.
--- NOTE | 2019-01-14 16:59 | NUR ---
PT ABLE TO MOVE RT FOOT WHEN ASKED. GROSS MOVEMENT IN ALL EXTREMITIES. PT AFEBRILE. COARSE WHEEZES HEARD T/O LUNG KAUFFMAN. SATTING 90% OR GREATER ON VENT SETTINGS: A/C 18, TV 350, PEEP 5, 50% FIO2. INCREASED IN PACS NOTED. CONTINUES TO BE IN ST, HR IN THE LOW 100S. BP STABLE. RESIDUALS CONTINUE TO BE 0 ML. NO OTHER CHANGES TO NOTE AT THIS TIME. BED LOW, CALL LIGHT IN REACH. WILL CONTINUE TO MONITOR.
--- NOTE | 2019-01-14 18:12 | NUR ---
SHIFT SUMMARY PT INTUBATED AND ON SEDATION. PT AFEBRILE. PT ABLE TO MOVE RT FOOT WHEN ASKED. GROSS MOVEMENT IN THE REST OF EXTREMITIES. COARSE WHEEZES HEARD T/O LUNG KAUFFMAN. LARGE THICK LOPEZ SECRETIONS BEING SUCTIONED FROM ETT. PT SATTING 90% OR GREATER ON VENT SETTINGS: A/C 18, TV 350, PEEP 5, 50% FIO2. SINUS TACH. MORE FREQUENT PAC'S NOTED THIS SHIFT. HR LOW 100S. BP STABLE. OG IN PLACE INFUSING VHP AT GOAL RATE OF 25 ML/HR W/ 30 ML FLUSH Q4. 0 ML RESIDUALS REINSTILLED THROUGHOUT THE SHIFT. NO BM THIS SHIFT. FLANNERY DRAINING YELLOW URINE WITH SOME SEDIMENT. ADEQUATE URINE OUTPUT. NO CHANGES IN SKIN TO NOTE. PROPOFOL 50 MCG/KG/MIN. LR 100 ML/HR. NO OTHER ACUTE CHANGES TO NOTE ON AT THIS TIME. BED LOW, CALL LIGHT IN REACH. WILL REPORT TO ONCOMING RN.
--- NOTE | 2019-01-14 19:30 | NUR ---
ASSUMED CARE BEDSIDE REPORT RECIEVED. PT IS INTUBATED AND SEDATED. VENT SETTINGS AC 18, TV 350, PEEP 5, FIO2 50%. PT WITH COPIOUS, THICK, LOPEZ, FROTHY SECRETIONS FROM ETT. PICC TO LOGAN C/D/I WITH PROPOFOL AT 50 MCG/KG/MIN, LR 100 ML/HR, AND THEOPHYLLINE AT 40 ML/HR. PT OPENS EYES TO VERBAL STIMULI AND IS ABLE TO SQUEEZE HANDS UPON COMMAND. OGT IN PLACE WITH TF AT 25 ML/HR GOAL RATE. NO RESIDUALS NOTED. FLANNERY IN PLACE WITH YELLOW URINE OUTPUT NOTED. SBW RESTRAINTS IN PLACE. WILL CONTINUE TO MONITOR.
[2019-01-15 03:30] LABS: BASOPHILS ABSOLUTE AUTO 0.09 K/mm3 (0.00-0.23); BASOPHILS PERCENT AUTO 0 % (0-2); EOSINOPHILS ABSOLUTE AUTO 0.01 K/mm3 (0.00-0.68); EOSINOPHILS PERCENT AUTO 0 % (0-6); Hematocrit 30.9 % (33.0-51.0); Hemoglobin 9.2 g/dL (11.5-16.0); Mean Corpuscular HGB Conc 29.8 g/dL (31.5-36.5); Mean Corpuscular Volume 94 fL (80-100); Mean Platelet Volume 10.2 fL (9.1-12.4); Platelet Count 116 K/mm3 (150-400); RDW Coefficient Variation 14.6 % (11.7-14.2); Red Blood Cell Count 3.28 M/mm3 (3.80-5.20); White Blood Cell Count 44.18 K/mm3 (4.00-11.30)
[2019-01-15 03:33] LABS: IMMATURE GRAN ABSOLUTE AUTO 0.69 K/mm3 (0.00-0.10); IMMATURE GRAN PERCENT AUTO 2 % (0-1); LYMPHOCYTES ABSOLUTE AUTO 12.32 K/mm3 (0.84-5.20); LYMPHOCYTES PERCENT AUTO 28 % (21-46); MONOCYTES ABSOLUTE AUTO 1.46 K/mm3 (0.16-1.47); MONOCYTES PERCENT AUTO 3 % (4-13); NEUTROPHILS ABSOLUTE AUTO 29.61 K/mm3 (1.96-9.15); NEUTROPHILS PERCENT AUTO 67 % (41-73)
[2019-01-15 03:46] LABS: Anion Gap 1 mmol/L (6-16); Blood Urea Nitrogen 32 mg/dL (8-24); Bun/Creatinine Ratio 59.5 (12.0-20.0); CO2, Blood 39 mmol/L (21-32); Calcium, Blood 7.9 mg/dL (8.5-10.1); Chloride, Blood 99 mmol/L (98-108); Creatinine, Blood 0.54 mg/dL (0.40-1.00); Glomerular Filtration Rate >60 (60-); Glucose, Blood 174 mg/dL (70-99); Phosphorus, Blood 3.4 mg/dL (2.5-4.9); Potassium, Blood 4.7 mmol/L (3.5-5.5); Sodium, Blood 139 mmol/L (136-145); Theophylline 9.1 ug/mL (10.0-20.0)
--- NOTE | 2019-01-15 05:42 | NUR ---
SHIFT SUMMARY NO ACUTE CHANGES THIS SHIFT. PT REMAINS INTUBATED AND SEDATED. VENT SETTINGS AC 18, TV 350, PEEP 5, FIO2 45%. VITAL SIGNS HAVE REMAINED STABLE. PT CONTINUES TO HAVE COPIOUS AMOUNTS OF LOPEZ, FROTHY SECRETIONS FROM ETT SUCTION. PT AROUSES TO VERBAL STIMULI AND SPONTANEOUSLY MOVES EXTREMITIES. PICC TO LOGAN C/D/I WITH PROPOFOL INFUSING AT 50 MCG/KG/MIN, THOPHYLLINE AT 40 ML/HR, AND LR AT 100 ML/HR. OGT IN PLACE WITH TF AT 25 ML/HR GOAL RATE, NO RESIDUALS THIS SHIFT. FLANNERY IN PLACE WITH GOOD URINE OUTPUT THIS SHIFT, BECOMING GREEN TINGED IN COLOR. SBW RESTRAINTS REMAIN IN PLACE. WILL CONTINUE TO MONITOR AND REPORT OFF TO ONCOMING RN.
--- NOTE | 2019-01-15 07:44 | NUR ---
ASSUMED CARE: REPORT RECEIVED FROM YURI Winters RN. ASSUMED CARE OF THIS PT AT APPROX 0700. ON ASSESSMENT, THE PT REMAINS SEDATED/INTUBATED. SHE IS RESTING QUIETLY & SHOWING NO S/SX PAIN OR DISCOMFORT. PROPOFOL INFUSING FOR SEDATION, TITRATION DOCUMENTED IN FLOWSHEET. THEOPHYLLINE ALSO INFUSING PER ORDERS AT THIS TIME. VENT SETTINGS: AC 18, TV 350, PEEP 5 & FIO2 45%. TF OF VITAL HP INFUSING AT GOAL RATE OF 25 ML/HR, NO RESIDUALS NOTED. WILL CONTINUE TO MONITOR & UPDATE NEEDED.
--- NOTE | 2019-01-15 09:10 | NUR ---
SEDATION VACATION: SEDATION PLACED ON STANDBY AT APPROX 0850, RESUMED AT APPROX 0900. DURING THIS TIME, PT AWAKED & WAS ABLE TO FOLLOW COMMANDS/ WEST. SEDATION RESUMED AFTER APPROX 10 MINS R/T PT's INCREASED ANXIETY & APPEARANCE OF DISCOMFORT. WILL CONTINUE TO MONITOR & UPDATE NEEDED.
--- NOTE | 2019-01-15 09:29 | NUR ---
DR. LICEA: PROVIDER AT BEDSIDE TO SEE PT. HE STS HE WOULD LIKE TO CONTINUE W/ THEOPHYLLINE DRIP FOR ANOTHER DAY & THEN POSSIBLY COMPLETE BRONCHOSCOPY TOMORROW OR THE FOLLOWING DAY DEPENDENT ON WHEEZING. CHANGES TO ABX MAY ALSO ME MADE, PROVIDER TO PLACE ORDERS. AIM IS FOR SPO2 > 88%, FIO2 TITRATED DOWN TO 40% PER PROVIDER REQUEST. WILL CONTINUE TO MONITOR & UPDATE NEEDED.
--- NOTE | 2019-01-15 15:17 | NUR ---
REC'D REPORT FROM NICHELLE SERNA AND AM ASSUMING CARE OF THIS PT.
--- NOTE | 2019-01-15 17:06 | NUR ---
PT UPDATE: CXR DONE R/T INCREASING HYPOXIA WITH INCREASING 02 DEMANDS. PT IS NOW ON 10L PER NRM. PT REPOSITIONED SUPINE 02 SATURATIONS DECREASE WHEN PT IS LEFT SIDE LYING.
--- NOTE | 2019-01-15 17:25 | NUR ---
SHIFT SUMMARY: PT REMAINS INTUBATED AND SEDATED ON TITRATED PROPOFOL CURRENTLY AT 50MCG/KG/MIN. BILATERAL SOFT WRIST RESTRAINTS ON FOR SAFETY. LUNGS WITH CONT INS/EXP WHEEZES T/O BILATERALLY. VENT SETTINGS UNCHANGED: AC-18, TV-350, P-5, FI02-40%. 02 SATS >90% ON THESE SETTINGS, HOWEVER, AT TIMES WILL DESATURATE TO THE UPPER 80% RANGE, BUT SATS INCREASE >90% AFTER SX'ING A MODERATE AMT OF THICK SPUTUM. PICC TO THE RT UPPER ARM WITH THEOPHYLLINE @ 40ML/HR FOR CONTINUED WHEEZING, LR@ 75ML/HR. ABD LARGE/ROUND/NO GRIMACE TO PALPATION. BT'S ARE ACTIVE X4. PT TOLERATING VHP TUBE FEEDINGS WELL. NO RESIDUALS THIS AFTERNOON. NO BM THIS SHIFT. FLANNERY CATH DRAINING ADEQUATE AMTS OF CLEAR, YELLOW URINE TO GRAVITY.
--- NOTE | 2019-01-15 19:01 | NUR ---
REPORTED OFF TO NICHELLE VILLEGAS WHOM WILL ASSUME CARE OF PT.
--- NOTE | 2019-01-15 19:10 | NUR ---
ASSUMING CARE OF PT AT THIS TIME. PT REPORT RECEIVED AT BEDSIDE WITH OFFGOING NURSE, KAREEM STEWARD. PT LAYING IN BED, INTUBATED, SEDATED UPON ENTERING THE ROOM. VS STABLE - SEE VS FS. PT DOES NOT APPEAR TO BE IN DISTRESS AT THIS TIME. WILL REVIEW PLAN OF CARE.
--- NOTE | 2019-01-15 19:15 | NUR ---
ASSESSMENT PT RESPONDS TO PAINFUL AND VERBAL STIMULI, OPENS EYES TO PRESSURE, A&O T O SELF, DOES NOT FOLLOW COMMANDS, DOES NOT NOD HEAD Y/NT OQUESTIONS, LOCALIZES PAIN, INTUABTED, SEDATED. PROPOFOL DRIP AT 50 MCG/KG/MIN - WILL TITRATE TO EFFECT. MARGIE SENSATION. PT WEST. GENERALIZED WEAKNESS NOTED PT IN BILAT WRIST RESTRAINTS TO PROTECT VITAL LINES/CORDS/TUBES AND TO PROTECT FROM SELF-EXTUBATION. PT OCC PULLING ON RESTRAINTS. NO S/SX OF PAIN/DISCOMFORT NOTED. EXP AND INS WHEEZING T/O, DIMISHED LOWER LOBES. VENT SETTINGS: AC 18, TV 350, PEEP 5, FIO2 40%. OXY SAT >90%. RR 18. SUCTION VIA ETT: MODERATE AMOUNTS OF THICK LOPEZ SECRETIONS. AFEBRILE. ST WITH FREQUENT PAC'S. HR 110'S. BP STABLE - SEE VS FS. STRONG PULSES. EDEMA NOTED. COOL, PALE SKIN. HYPOACTIVE BT X4 QUADRANTS. ABD SOFT, NO FACIAL GRIMACING WITH PALPATION, MOD DIST. OG IN PLACE. TF: VHP AT GOAL RATE 30 ML/HR AND 30 ML FLUSH Q4 HR. NO BM. F/C: CLEAR, YELLOW URINE. PICC LOGAN. LR AT 50 ML/HR. AMINOPHYLLINE AT 40 ML/HR.
--- NOTE | 2019-01-15 19:25 | NUR ---
DR. LICEA PER REPORT FROM NICHELLE JOHNSTON: PT REMAINS ANXIOUS DURING SEDATION VACATION. CALLED DR. LICEA REGARDING ANXIETY DURING SEDATION VACATIONS. DR. LICEA ORDERED PRECEDEX DRIP FOR ANXIETY. PLANNING TO UTILIZE PRECEDEX DRIP DURING SEDATION VACATION. DR. LICEA ALSO ORDERED ELECTROLYTE PROTOCOL AND REGLAN Q12 PRN FOR GI MOTILITY. WAITING FOR VERIFICATION OF MEDICATIONS FROM PHARMACY AT THIS TIME.
[2019-01-16 03:28] LABS: BASOPHILS ABSOLUTE AUTO 0.07 K/mm3 (0.00-0.23); BASOPHILS PERCENT AUTO 0 % (0-2); EOSINOPHILS PERCENT AUTO 0 % (0-6); Hematocrit 29.5 % (33.0-51.0); Mean Corpuscular HGB 28.7 pg (26.0-34.0); Mean Corpuscular HGB Conc 30.5 g/dL (31.5-36.5); Mean Corpuscular Volume 94 fL (80-100); Mean Platelet Volume 10.2 fL (9.1-12.4); Platelet Count 130 K/mm3 (150-400); RDW Coefficient Variation 14.5 % (11.7-14.2); RDW Standard Deviation 49.9 fL (35.1-46.3); Red Blood Cell Count 3.14 M/mm3 (3.80-5.20); White Blood Cell Count 40.59 K/mm3 (4.00-11.30)
[2019-01-16 03:29] LABS: IMMATURE GRAN ABSOLUTE AUTO 0.55 K/mm3 (0.00-0.10); IMMATURE GRAN PERCENT AUTO 1 % (0-1); LYMPHOCYTES PERCENT AUTO 29 % (21-46); MONOCYTES ABSOLUTE AUTO 1.31 K/mm3 (0.16-1.47); MONOCYTES PERCENT AUTO 3 % (4-13); NEUTROPHILS ABSOLUTE AUTO 26.76 K/mm3 (1.96-9.15); NEUTROPHILS PERCENT AUTO 66 % (41-73)
[2019-01-16 03:43] LABS: Albumin, Blood 1.9 g/dL (3.4-5.0); Anion Gap 2 mmol/L (6-16); Blood Urea Nitrogen 36 mg/dL (8-24); Bun/Creatinine Ratio 61.7 (12.0-20.0); CO2, Blood 39 mmol/L (21-32); Chloride, Blood 100 mmol/L (98-108); Creatinine, Blood 0.58 mg/dL (0.40-1.00); Glomerular Filtration Rate >60 (60-); Glucose, Blood 181 mg/dL (70-99); Potassium, Blood 4.7 mmol/L (3.5-5.5); Sodium, Blood 141 mmol/L (136-145); Theophylline 14.7 ug/mL (10.0-20.0)
--- NOTE | 2019-01-16 04:39 | NUR ---
SHIFT ASSESSMENT NO ACUTE CHANGES NOTED T/O SHIFT. SEDATION VACATION COMPLETED THIS AM WITH PROPOFOL ON STANDBY AND PRECEDEX TITRATED TO 0.7 MCG/KG/HR. DURING SEDATION VACATION: PT RESPONDED TO VERBAL STIMULI, OPENED EYES SPONT, A&O TO SELF, FOLLOWED COMMANDS (ABLE TO WIGGLE TOES AND BASE REMOVER EQUALLY ON COMMAND), NODDED HEAD Y/N TO QUESTIONS, LOCALIZES PAIN. LESS ANXIETY, AGITATION, RESTLESSNESS, AND PULLING ON RESTRAINTS WHILE ON PRECEDEX DRIP DURING SEDATION VACATION. PROPOFOL DRIP CURRENTLY AT 15 MCG/KG/MIN - CONT TO TITRATE TO EFFECT. PRECEDEX DRIP CURRENTLY AT 0.5 MCG/KG/HR - CONT TO TITRATE TO EFFECT. PT NODDED HEAD YES TO SENSATION INTACT ALL EXTREMETIES. PT NODDED HEAD NO TO N/T ALL EXTREMETIES. PT WEST. GENERALIZED WEAKNESS. PT IN BILAT WRIST RESTRAINTS TO PROTECT VITAL LINES/CORDS/TUBES AND TO PROTECT FORM SELF-EXTUBATION. NO S/SX OF PAIN/DISCOMFORT NOTED T/O SHIFT. PT NODDED HEAD NO TO PAIN/DISCOMFORT T/O SHIFT. EXP AND INS WHEEZING NOTED T/O, DIMINIHSED LOWER LOBES. VENT SETTINGS: AC 18, TV 350, PEEP 5, FIO2 40%. OXY SAT >90%. RR 18 TO 20'S. SUCTION VIA ETT: MODERATE AMOUNTS OF THICK LOPEZ SECRETIONS. AFEBRILE. ST WITH FREQUENT PAC'S. HR 100'S TO 120'S. BP STABLE - SEE VS FS. STRONG PULSES. EDEMA NOTED. WARM, PINK SKIN. HYPOACTIVE BT X4 QUADRANTS. ABD SOFT, NO FACIAL GRIMACING WITH PALPATION, MOD DIST. OG IN PLACE. TF: VHP @ GOAL RATE 25 ML/HR AND 30 ML FLUSH Q4 HR. NO BM. RESIDUALS WNL. F/C: CLEAR, YELLOW URINE. PICC LOGAN. LR AT 50 ML/HR. AMINOPHYLLINE AT 40 ML/HR. WILL CONT TO MONITOR PT AND WILL PROVIDE BEDSIDE REPORT TO ONCOMING NURSE THIS AM.
--- NOTE | 2019-01-16 17:22 | NUR ---
SHIFT SUMMARY: PT REMAINED SEDATED AND ON THE VENTILATOR TODAY. HER LUNGS CONTINUE TO HAVE INSPIRATORY AND EXPIRATORY WHEEZES. ST WITH RATE IN THE 1 TEENS TO 120S. HYPERTENSIVE TODAY. PT IS ANXIOUS AT TIMES. PROPOFOL TITRATED UP AND PRECEDEX TITRATED DOWN PER DR. GHOSH. SEDATION KEPT LIGHT POSSIBLE WHILE ALSO MAINTAINING PT'S COMFORT. PT IS TOLERATING TUBE FEEDS. FLANNERY WITH OVER 2L OF OUTPUT AFTER LASIX TODAY. NO TC OR VISITS FROM ANY FAMILY TODAY. CONTINUING TO MONITOR.
--- NOTE | 2019-01-16 18:55 | NUR ---
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 No family present at time of visit. She would open her eyes to touch/voice, but not for long. I provided affirmation of excellent care and comfort through touch. I will remain available to pt and family.
--- NOTE | 2019-01-16 19:15 | NUR ---
ASSUMED CARE ASSUMED CARE OF PATIENT. REMAINS INTUBATED- AC 16, TV 350, PEEP 5, FIO2 40%. RR MID-20S TO 30. SEDATED WITH PROPOFOL @ 35MCG/KG/MIN. OPENS EYES TO VERBAL STIMULI. FOLLOWS SIMPLE COMMANDS. MOVES ALL EXTREMITIES WEAKLY. DENIES C/O PAIN BY SHAKING HEAD "NO." BILATERAL SOFT WRIST RESTRAINTS REMAIN IN PLACE TO PREVENT SELF-EXTUBATION. MONITOR SHOWS ST, RATE 120-130. BP STABLE. TEMP 100.2F. OG WITH VITAL HIGH PROTEIN @ GOAL RATE OF 30CC/HR. FLANNERY PATENT AND DRAINING CLEAR YELLOW URINE. PAS TO BLE. GENERAL EDEMA NOTED. 3+ EDEMA NOTED TO BILATERAL HANDS AND FEET. AMINOPHYLLINE INFUSING PER ORDER. SEE SHIFT ASSESSMENT FOR FULL ASSESSMENT.
[2019-01-17 04:08] LABS: BASOPHILS ABSOLUTE AUTO 0.05 K/mm3 (0.00-0.23); BASOPHILS PERCENT AUTO 0 % (0-2); EOSINOPHILS ABSOLUTE AUTO 0.02 K/mm3 (0.00-0.68); EOSINOPHILS PERCENT AUTO 0 % (0-6); Hemoglobin 8.3 g/dL (11.5-16.0); Mean Corpuscular HGB 28.6 pg (26.0-34.0); Mean Corpuscular HGB Conc 30.7 g/dL (31.5-36.5); Mean Corpuscular Volume 93 fL (80-100); Mean Platelet Volume 9.9 fL (9.1-12.4); Platelet Count 120 K/mm3 (150-400); RDW Coefficient Variation 14.6 % (11.7-14.2); RDW Standard Deviation 50.1 fL (35.1-46.3); White Blood Cell Count 33.59 K/mm3 (4.00-11.30)
[2019-01-17 04:09] LABS: IMMATURE GRAN ABSOLUTE AUTO 0.69 K/mm3 (0.00-0.10); IMMATURE GRAN PERCENT AUTO 2 % (0-1); LYMPHOCYTES ABSOLUTE AUTO 10.78 K/mm3 (0.84-5.20); LYMPHOCYTES PERCENT AUTO 32 % (21-46); MONOCYTES ABSOLUTE AUTO 0.85 K/mm3 (0.16-1.47); MONOCYTES PERCENT AUTO 3 % (4-13); NEUTROPHILS PERCENT AUTO 63 % (41-73); PCO2 Venous 58.9 mmHg (38-42); pH Blood Venous 7.43 (7.34-7.37)
[2019-01-17 04:10] LABS: Base Excess Venous 15.2 mmol/L; Bicarbonate Venous 37.3 mmol/L (24.0-30.0); PO2 Venous 136 mmHg (38-42)
[2019-01-17 04:28] LABS: Alanine Aminotransfer (ALT/SGP 12 U/L (12-78); Albumin, Blood 1.8 g/dL (3.4-5.0); Albumin/Globulin Ratio 0.8 (0.8-1.8); Alk Phos 38 U/L (50-136); Anion Gap 3 mmol/L (6-16); Aspartate Aminotrans (AST/SGOT 11 U/L (12-37); Bilirubin, Total 0.3 mg/dL (0.1-1.0); Blood Urea Nitrogen 43 mg/dL (8-24); CO2, Blood 38 mmol/L (21-32); Calcium, Blood 7.6 mg/dL (8.5-10.1); Chloride, Blood 99 mmol/L (98-108); Creatinine, Blood 0.75 mg/dL (0.40-1.00); Globulin, Blood 2.4 g/dL (2.2-4.0); Glomerular Filtration Rate >60 (60-); Glucose, Blood 237 mg/dL (70-99); Magnesium, Blood 2.3 mg/dL (1.6-2.4); Phosphorus, Blood 3.2 mg/dL (2.5-4.9); Potassium, Blood 4.9 mmol/L (3.5-5.5); Sodium, Blood 140 mmol/L (136-145); Total Protein, Blood 4.2 g/dL (6.4-8.2)
--- NOTE | 2019-01-17 06:22 | NUR ---
SHIFT SUMMARY NO ACUTE CHANGES DURING NOC. REMAINS INTUBATED. SEDATED WITH PROPOFOL BETWEEN 35-45MCG/KG/MIN- NOW INFUSING @ 35MCG/KG/MIN. OPENS EYES TO STIMULI. FOLLOWS SIMPLE COMMANDS AND NODS/SHAKES HEAD TO YES/NO QUESTIONS. BILATERAL SOFT WRIST RESTRAINTS REMAIN IN PLACE. OG CLAMPED AT THIS TIME- TUBE FEEDING HAS BEEN OFF SINCE 0030 PER ORDER. FLANNERY PATENT AND DRAINING CLEAR YELLOW URINE. PAS TO BLE. AMINOPHYLLINE INFUSING @ 40CC/HR PER ORDER. PLAN IS TO BRONCH PT TODAY PER DR. GHOSH. WILL REPORT TO DAY SHIFT RN WHEN AVAILABLE.
--- NOTE | 2019-01-17 09:43 | NUR ---
CARE ASSUMED CARE AND REPORT ASSUMED FROM TREV STEWARD. PT SEDATED ON PROPOFOL GTT AT 35 MCG. VENT AC 18, TV 350, PEEP 5, FIO2 40%. LUNG SOUNDS WHEEZY IN ALL LUNG KAUFFMAN WITH INSPIRATION AND EXPIRATION. ETT SECURED AND OGT SECURED. SINUSTACH, HR 100-120. BP STABLE. AFEBRILE. PT ABLE TO SLOWLY FOLLOW COMMANDS. BUE RESTRAINED. PT LARGELY EDEMATOUS WITH PITTING EDEMA IN HANDS AND FEET. BRONCH RESCHEDULED FOR TOMORROW AT 1130 SINCE PT RECIEVED AM DOSE OF LOVENOX. MD GHOSH AWARE AND VERBAL ORDER GIVEN TO RESTART TUBE FEEDS UNTIL MIDNIGHT. HOB ELEVATED AND PT TURNED. THEOPHYLLINE GTT REMAINS INFUSING AT 40 ML/HR PER ORDER. WILL CONTINUE TO MONITOR.
--- NOTE | 2019-01-17 10:09 | NUR ---
WEAN TRIAL PROPOFOL GTT DECREASED TO 15 MCG AND VENT CHANGED TO PS 12/5 BY MD GHOSH. TRIAL LASTED APPROX 20 MINUTES. PT THEN BEGAN BREATHING RR 42-46 WITH TIDAL VOLUMES 190-210 AND RHYTHM WAS BIGEMINY VS SINUSTACH WITH FEQUENT PVCS. MD AWARE AND VENT CHANGED BACK TO AC 18, TV 350, PEEP 5. WILL CONTINUE TO MONITOR.
--- NOTE | 2019-01-17 11:42 | NUR ---
REASSESSMENT PT REMAINS ON VENT AND SEDATED WITH PROPOFOL GTT AT 35 MCG/KG. SEE NOTE REGARDING WEAN TRIAL. PT TURNED AND HOB ELEVATED. NO S/S PAIN AT THIS TIME. REMAINS IN BUE WITH EXTREMITIES ELEVATED. LASIX GIVEN PER TUBE. PT REMAINS WHEEZING IN ALL KAUFFMAN. SINUSTACH, HR 100-120S WITH STABLE BP. TF RESTARTED AND PT TOELRATING. WILL CONTINUE TO MONITOR.
--- NOTE | 2019-01-17 17:34 | NUR ---
SHIFT SUMMARY BRONCHOSCOPY RESCHEDULED FOR TOMORROW. TF RESTARTED TODAY AND PT HAS TOLERATED SINCE AM WITH MINIMAL TO NO RESIDUAL. FENTANYL 50 MCG IVP GIVEN X1 FOR PAIN AND AGITATION. MODERATE AMOUNTS OF LOPEZ/YELLOW SECRETIONS SUCTIONED FROM ETT DURING SHIFT. HAS REMAINED SINUSTACH, HR 105-120 ENTIRE SHIFT WITH STABLE BP. THEOPHYLLINE DISCONTINUED. PICC DRESSING CHANGED THIS AFTERNOON. HOB ELEVATED AND PT TURNED Q2H. NO BM DURING SHIFT. BUE REMAINED RESTRAINED ENTIRE SHIFT. AFEBRILE. WILL GIVE BEDSIDE, HANDOFF REPORT TO BRINA STEWARD.
--- NOTE | 2019-01-17 19:00 | NUR ---
ASSUMED CARE ASSUMED CARE OF PATIENT. REMAINS INTUBATED- AC 18, TV 350, PEEP 5, FIO2 40%. RR 20s. SEDATED WITH PROPOFOL @ 45MCG/KG/MIN. OPENS EYES TO VERBAL STIMULI. FOLLOWS SIMPLE COMMANDS. MOVES ALL EXTREMITIES WEAKLY. BILATERAL SOFT WRIST RESTRAINTS IN PLACE TO PREVENT SELF-EXTUBATION. SHANNON. SHAKES/NODS HEAD YES/NO SEEMINGLY APPROPRIATELY. DENIES C/O PAIN. MONITOR SHOWS ST, RATE 100-110. BP STABLE. OG WITH VITAL HIGH PROTEIN INFUSING @ GOAL RATE OF 30CC/HR. FLANNERY PATENT AND DRAINING CLEAR YELLOW URINE. PAS TO BLE. SEE SHIFT ASSESSMENT FOR FULL ASSESSMENT.
[2019-01-18 04:12] LABS: Mean Corpuscular HGB 27.9 pg (26.0-34.0); Mean Corpuscular HGB Conc 30.8 g/dL (31.5-36.5); Mean Corpuscular Volume 91 fL (80-100); Mean Platelet Volume 9.7 fL (9.1-12.4); Platelet Count 128 K/mm3 (150-400); RDW Coefficient Variation 14.4 % (11.7-14.2); RDW Standard Deviation 47.7 fL (35.1-46.3); Red Blood Cell Count 2.87 M/mm3 (3.80-5.20)
[2019-01-18 04:27] LABS: Albumin, Blood 1.9 g/dL (3.4-5.0); Anion Gap 3 mmol/L (6-16); Blood Urea Nitrogen 45 mg/dL (8-24); Bun/Creatinine Ratio 52.4 (12.0-20.0); CO2, Blood 38 mmol/L (21-32); Calcium, Blood 7.5 mg/dL (8.5-10.1); Chloride, Blood 98 mmol/L (98-108); Creatinine, Blood 0.86 mg/dL (0.40-1.00); Glomerular Filtration Rate >60 (60-); Glucose, Blood 167 mg/dL (70-99); Phosphorus, Blood 4.1 mg/dL (2.5-4.9); Sodium, Blood 139 mmol/L (136-145)
[2019-01-18 04:33] LABS: International Normalized Ratio 0.95; Prothrombin Time Results 10.1 Sec (9.7-11.5)
--- NOTE | 2019-01-18 06:14 | NUR ---
SHIFT SUMMARY NO ACUTE CHANGES DURING NOC. REMAINS INTUBATED. FIO2 45%. SEDATED WITH PROPOFOL BETWEEM 35-45MCG/KG/MIN- NOW INFUSING @ 35MCG/KG/MIN. OPENS EYES TO STIMULI. FOLLOWS SIMPLE COMMANDS. MOVES ALL EXTREMITIES WEAKLY. BILATERAL SOFT WRIST RESTRAINTS REMAIN IN PLACE. MONITOR SHOWS ST, RATE 100-110. BP STABLE. AFEBRILE T/O SHIFT. TUBE FEEDING HAS BEEN OFF SINCE MIDNIGHT OG IS CLAMPED. FLANNERY PATENT AND DRAINING TO GRAVITY. PAS TO BLE. WILL REPORT TO DAY SHIFT RN WHEN AVAILABLE.
[2019-01-18 06:27] LABS: BASOPHILS PERCENT MAN 0 % (0-2); EOSINOPHILS PERCENT MAN 0 % (0-6); LYMPHOCYTES PERCENT MAN 44 % (21-46); MONOCYTES PERCENT MAN 2 % (4-13); MYELOCYTE PERCENT MAN 1 % (0-0); SEG NEUTROPHILS PERCENT MAN 53 % (41-73); TOTAL CELLS COUNTED 100
--- NOTE | 2019-01-18 07:15 | NUR ---
RECEIVED REPORT FROM NICHELLE KARIMI, AND ASSUMED CARE OF PT.
--- NOTE | 2019-01-18 09:15 | NUR ---
DR. GORDON AT BEDSIDE FOR EVALUATION.
--- NOTE | 2019-01-18 09:38 | NUR ---
NURSING SUMMARY SLEEPING, WAKES TO VOICE AND TOUCH, SHAKES HEAD TO ANSWER SIMPLE YES/NO QUESTIONS, FOLLOWS COMMANDS. INSTRUCTED RE: HOLDING LOVENOX AND TUBE FEEDINGS IN PREPARATION FOR A BRONCHOSCOPY PLANNED FOR 1130. LUNGS WITH WHEEZING THROUGHOUT, PRIMAILY HEARD LOUDER IN RIGHT UPPER LOBE AREA, VENTILATOR SETTINGS 18/250/5/45%, SATS 96-98%, RR 17-22. SR - ST WITH PAC'S, HR 97-117, SBP OCCASSIONALLY DOWN TO THE 90'S. EDEMA TO BILATERAL UPPER AND LOWER EXTREMITIES, ELEVATING ON PILLOWS. REPOSITIONING EVERY 2 HOURS. BOWEL SOUNDS HYPOACTIVE IN ALL FOUR QUADRANTS, TUBE FEEDINGS CURRENTLY OFF IN PREPARATION FOR BRONCHOSCOPY, RESIDUAL = 0. BRUISING THROUGHOUT. FLANNERY IN PLACE DRAINING ADEQUATE AMOUNTS OF CLEAR YELLOW URINE, EMPTIED 350 CC AT 0930. PICC LINE IN RIGHT UPPER ARM, SCANT AMOUNT OF BLOODY DRAINAGE UNDER DRESSING BUT DRESSING IS INTACT. CHECKING BLOOD SUGARS Q6 HOURS. CALLED LILIANA, PT'S DAUGHTER, RE: TIMING FOR DOING THE BRONCHOSCOPY AND ADVISED THAT DR. GHOSH AND I WILL CALL BACK TO OBTAIN CONSENT. VERBALIZED GOOD UNDERSTANDING.
--- NOTE | 2019-01-18 11:30 | NUR ---
DAY SURGERY SET-UP AT BEDSIDE FOR BRONCHOSCOPY. DR. GHOSH AT BEDSIDE WITH PT'S DAUGHTER, LILIANA, FOR INFORMED CONSENT.
--- NOTE | 2019-01-18 12:25 | NUR ---
01/18/19 1225 Polo Diego IN ICU 7 FOR PROCEDURE. PERMISSION RECIEVED FROM DAUGHTER BY DOCTOR. PATIENT IS VENTED AND ON PROPOFOL GTT. ADDITIONAL MEDS ON HAND IF NEEDED PER DOCTOR.
--- NOTE | 2019-01-18 13:45 | NUR ---
STARTING THE BEDSIDE BRONCHOSCOPY WITH DAY SURGERY STAFF, RESPIRATORY THERAPY, AND DR. GHSOH AT BEDSIDE.
--- NOTE | 2019-01-18 19:00 | NUR ---
ASSUMED CARE ASSUMED CARE OF PATIENT. REMAINS INTUBATED- AC 18, TV 350, PEEP 5, FIO2 45%. SEDATED WITH PROPOFOL @ 35MCG/KG/MIN. OPENS EYES TO STIMULI. MOVES EXTREMITIES WEAKLY TO COMMAND. NOT ABLE TO NOD/SHAKE HEAD YES/NO AT THIS TIME. BILATERAL SOFT WRIST RESTRAINTS IN PLACE TO PREVENT SELF-EXTUBATION. SHANNON, 3MM. MONITOR SHOWS ST, RATE 110-115. BP STABLE. OG WITH VITAL HIGH PROTEIN INFUSING @ GOAL RATE OF 25CC/HR. 30CC H20 Q4H. FLANNERY PATENT AND DRAINING CLEAR YELLOW URINE. PAS TO BLE. 2+ GENERAL EDEMA NOTED. PITTING EDEMA TO BILATERAL UPPER AND LOWER EXTREMITIES. SLIGHT WEEPING NOTED IN UPPER EXTREMITIES. LOGAN PICC NOTED WITH YGG D/I. SEE SHIFT ASSESSMENT FOR FULL ASSESSMENT.
--- NOTE | 2019-01-19 04:45 | NUR ---
SEDATION VACATION/WEANING TRIAL PROPOFOL DECRESED TO 15MCG/KG/MIN @ 0420. PRECEDEX STARTED NOW @ 0.3MCG/KG/HR AND PROPOFOL DECREASED TO 5MCG/KG/MIN. RT AT BEDSIDE FOR WEANING TRIAL.
--- NOTE | 2019-01-19 06:45 | NUR ---
SHIFT SUMMARY NO ACUTE CHANGES. REMAINS INTUBATED. WEANING TRIAL DONE- SEE RT DOCUMENTATION. SEDATED WITH PROPOFOL BETWEEN 30-35MCG/KG/MIN- NOW INFUSING @ 30MCG/KG/MIN. OCCASIONALLY FOLLOWS SIMPLE COMMANDS. BILATERAL SOFT WRIST RESTRAINTS IN PLACE. OG WITH VITAL HIGH PROTEIN AT GOAL RATE OF 25CC/HR. RESIDUALS BETWEEN 0-30CC DURING SHIFT. FLANNERY PATENT AND DRAINING YELLOW URINE. PAS T0 BLE. MONITOR SHOWS ST, RATE 100-110. BP STABLE. WILL REPORT TO DAY SHIFT RN WHEN AVAILABLE.
--- NOTE | 2019-01-19 07:15 | NUR ---
RECEIVED REPORT FROM NICHELLE KARIMI, AND ASSUMED CARE OF PT.
--- NOTE | 2019-01-19 10:29 | NUR ---
DR. GHOSH AT BEDSIDE FOR EVALUATION. NEW ORDERS PROVIDED.
--- NOTE | 2019-01-19 10:34 | NUR ---
DR. SINGH'S OFFICE CALLED TO ADVISE THAT DR. SINGH WILL BE HERE TO SEE PT TOMORROW.
--- NOTE | 2019-01-19 17:07 | NUR ---
NURSING SUMMARY SLEEPY, WAKES EASILY TO VOICE, OPENS EYES, ATTEMPTS TO ANSWER SIMPLE YES/NO QUESTIONS BY SHAKING HEAD, DOES NOT ALWAYS FOLLOW COMMANDS. VENTILATOR SETTINGS CHANGED FROM AC TO SPONTANEOUS 350/15/50%, WEANED OFF OF PROPOFOL AND PRECEDEX TODAY. PT DOES MOVE HER HEAD BACK AND FORTH AT TIMES BUT IS NOT DOING IT HARD ENOUGH TO BOTHER THE ET TUBE OR VENTILATOR. DOES NOT APPEAR ANXIOUS WHERE PT NEEDS ATIVAN. WE ARE WORKING TOWARDS WEANING OFF OF ALL SEDATIVES TO ENCOURAGE PT TO WAKE UP AND HAVE A SUCCESSFUL WEANING. LUNGS WITH CRACKLES IN UPPER LOBES AND DIMINISHED AT BASES, SOUND MUCH BETTER TODAY THAN YESTERDAY. SUCTIONING ON OCCASSION, SCANT AMOUNT OF LOPEZ THICK SPUTUM. CHEST CPT EVERY [address] SR - ST ON MONITOR WITH OCCASSIONAL PAC'S, 90'S - 110, SBP 90'S AT TIMES. EDEMA TO BILATERAL UPPER AND LOWER EXTREMITIES, ELEVATING ON PILLOWS. USED THE CEILING LIFT TO GET PT OUT OF BED INTO THE LOUNGE CHAIR, TOLERATED WELL, HAS BEEN IN THE CHAIR FOR APPROX. 4 HOURS THUS FAR. VHP TUBE FEEDINGS AT 25 ML/HR WITH WATER FLUSHES OF 30 ML EVERY 4 HOURS, RESIDUALS ARE LESS THAN 10 CC. BLOOD SUGARS EVERY 6 HOURS. PROVIDED MEDICATIONS FOR BOWEL CARE TODAY, NO BM. FLANNERY IN PLACE WITH CLEAR YELLOW URINE, LASIX 40 MG IV GIVEN. PICC LINE IN LOGAN INFUSING NS AT TKO AND ANTIBIOTICS.
--- NOTE | 2019-01-19 19:15 | NUR ---
ASSUMING CARE OF PT AT THIS TIME. PT REPORT RECEIVED AT BEDSIDE WITH OFFGOING NURSE, DIETER STEWARD. PT LAYING IN BED, INTUBATED, AWAKE UPON ENTERING THE ROOM. VS STABLE - SEE VS FS . PT DOES NOT APPEAR TO BE IN DISTRESS AT THIS TIME. WILL REVIEW PLAN OF CARE.
--- NOTE | 2019-01-19 19:30 | NUR ---
ASSESSMENT PT RESPONDS TO VERBAL SITMULI, OPENS EYES SPONT, A&O TO SELF, MINIMALLY FOLLOWING COMMANDS (NOT ABLE TO BARBER APPRENTICE WITH BILAT HANDS ON COMMAND, ABLE TO MOVE R FT ON COMMAND, NOT ABLE TO WIGGLE L FT ON COMMAND), NODDING HEAD Y/N TO SOME QUESTIONS, LOCALIZES PAIN, INTUBATED, NO SEDATION. PROPOFOL DRIP AND PRECEDEX DRIP ON STANDBY - WILL TITRATE TO EFFECT. PER REPORT FROM NICHELLE GARCIAS - MINIMIZE SEDATION T/O SHIFT. PT NODDED HEAD YES TO SENATION INTACT ALL EXTREMETIES AND NO TO N/T ALL EXTREMETIES. PT WEST. GENERALIZED WEAKNESS NOTED. PT IN BILAT WRIST RESTRAINTS TO PROTECT VITAL LINES/CORDS/TUBES AND TO PROTECT FROM SELF-EXTUBATION. PT OCC PULLING ON RESTRAINTS. NO S/SX OF PAIN/DISCOMFORT. UPPER AND MIDDLE LOBES CRACKLES AND EXP WHEEZING, DIMINISHED LOWER LOBES. VENT SETTINGS: PS 14, TV 350, PEEP 5, FIO2 50%. OXY SAT >90%. RR 20'S. SUCTION VIA ETT: SCANT AMOUNTS OF THICK LOPEZ SECRETIONS. AFEBRILE. ST. HR 100'S. BP STABLE - SEE VS FS. STRONG RAIDAL PULSES. FAINT TIBIAL AND PEDAL PULSES. EDEMA NOTED. DRY FLOWS TO BUE'S. WARM, PINK SKIN. HYPOACTIVE BT X4 QUADRANTS. ABD SOFT, NO FACIAL GRIMACING WITH PALPATION, MOD DIST. OG IN PLACE. TF: VHP @ GOAL RATE 25 ML/HR AND 30 ML FLUSH Q4 HR. NO BM. F/C: CLEAR, YELLOW URINE. PICC LOGAN. NS TKO AT 10 ML/HR.
[2019-01-20 03:28] LABS: Bicarbonate Venous 36.2 mmol/L (24.0-30.0); PCO2 Venous 57.9 mmHg (38-42); PO2 Venous 84.4 mmHg (38-42); pH Blood Venous 7.43 (7.34-7.37)
[2019-01-20 03:30] LABS: BASOPHILS ABSOLUTE AUTO 0.03 K/mm3 (0.00-0.23); BASOPHILS PERCENT AUTO 0 % (0-2); EOSINOPHILS ABSOLUTE AUTO 0.03 K/mm3 (0.00-0.68); EOSINOPHILS PERCENT AUTO 0 % (0-6); Hematocrit 26.3 % (33.0-51.0); Hemoglobin 8.2 g/dL (11.5-16.0); IMMATURE GRAN ABSOLUTE AUTO 0.34 K/mm3 (0.00-0.10); IMMATURE GRAN PERCENT AUTO 2 % (0-1); LYMPHOCYTES ABSOLUTE AUTO 8.88 K/mm3 (0.84-5.20); LYMPHOCYTES PERCENT AUTO 38 % (21-46); MONOCYTES ABSOLUTE AUTO 0.59 K/mm3 (0.16-1.47); MONOCYTES PERCENT AUTO 3 % (4-13); Mean Corpuscular HGB 28.5 pg (26.0-34.0); Mean Corpuscular HGB Conc 31.2 g/dL (31.5-36.5); Mean Corpuscular Volume 91 fL (80-100); Mean Platelet Volume 9.7 fL (9.1-12.4); NEUTROPHILS ABSOLUTE AUTO 13.43 K/mm3 (1.96-9.15); NEUTROPHILS PERCENT AUTO 58 % (41-73); Platelet Count 138 K/mm3 (150-400); RDW Coefficient Variation 14.5 % (11.7-14.2); RDW Standard Deviation 48.1 fL (35.1-46.3); Red Blood Cell Count 2.88 M/mm3 (3.80-5.20)
[2019-01-20 03:50] LABS: Alanine Aminotransfer (ALT/SGP 10 U/L (12-78); Albumin, Blood 2.1 g/dL (3.4-5.0); Albumin/Globulin Ratio 0.8 (0.8-1.8); Alk Phos 43 U/L (50-136); Anion Gap 3 mmol/L (6-16); Aspartate Aminotrans (AST/SGOT 36 U/L (12-37); Bilirubin, Total 0.2 mg/dL (0.1-1.0); Blood Urea Nitrogen 48 mg/dL (8-24); Bun/Creatinine Ratio 56.2 (12.0-20.0); CO2, Blood 38 mmol/L (21-32); Calcium, Blood 7.8 mg/dL (8.5-10.1); Chloride, Blood 97 mmol/L (98-108); Creatinine, Blood 0.85 mg/dL (0.40-1.00); Globulin, Blood 2.5 g/dL (2.2-4.0); Glomerular Filtration Rate >60 (60-); Glucose, Blood 119 mg/dL (70-99); Magnesium, Blood 2.6 mg/dL (1.6-2.4); Phosphorus, Blood 3.1 mg/dL (2.5-4.9); Potassium, Blood 5.2 mmol/L (3.5-5.5); Sodium, Blood 138 mmol/L (136-145); Total Protein, Blood 4.6 g/dL (6.4-8.2)
--- NOTE | 2019-01-20 04:48 | NUR ---
SHIFT ASSESSMENT NO ACUTE CHANGES NOTED T/O SHIFT. PT SLEPT T/O SHIFT WITH DECREASED STIMULI. PT RESPONDS TO VERBAL STIMULI, OPENS EYES SPONT, A&O TO SELF, MINIMALLY FOLLOWING COMMANDS (NOT ABLE TO RISK LEAD WITH BILAT HADNS ON COMMAND, ABLE TO MOVE R FT ON COMMAND, NOT ABLE TO WIGGLE L FT ON COMMAND), NODDING HEAD Y/N TO SOME QUESTIONS, LOCALIZES PAIN, INTUBATED, NO SEDATION. PROPOFOL AND PRECEDEX REMAINED ON STANDBY. PT NODDED HEAD YES TO SENSATION INTACT ALL EXTREMETIES AND NO TO N/T ALL EXTREMETIES. PT WEST. GENERALIZED WEAKNESS NOTED. PT IN BILAT WRIST RESTRAINTS TO PROTECT VITAL LINES/CORDS/TUBES AND TO PROTECT FROM SELF-EXTUBATION. PT OCC PULLING ON RESTRAINTS. NO S/SX OF PAIN/DISCOMFORT. PT DENIED PAIN/DISCOMFORT. UPPER AND MIDDLE LOBES CRACKLESS, DIMINISHED LOWER LOBES. OCC EXP WHEEZING. VENT SETTINGS: PS 14, PEEP 5, FIO2 50%, TV 350. OXY SAT >90%. RR 16 TO 30'S. SUCTION VIA ETT: SCANT AMOUNTS OF THICK LOPEZ SECRETIONS. AFEBRILE. NSR TO ST. HR 90'S TO 110'S. BP STABLE - SEE VS FS. STRONG RADIAL PULSES. FAINT TIBIAL AND PEDAL PULSES. EDEMA NOTED. DRY FLOW TO BUE'S FOR WEEPING EDEMA. WARM, PINK SKIN. HYPOACTIVE BT X4 QUADRANTS. ABD SOFT, NO FACIAL GRIMACING WITH PALPATION, MOD DIST. OG IN PLACE. TF: VHP AT GOAL RATE 25 ML/HR AND 30ML FLUSH Q4 HR. RESIDUAL WNL. NO BM. F/C: CLEAR, YELLOW URINE. PICC LOGAN. NS TKO AT 10 ML/HR. WILL CONT TO MONITOR PT AND WILL PROVIDE BEDSIDE REPORT TO ONCOMING NURSE THIS AM.
--- NOTE | 2019-01-20 06:30 | NUR ---
VENT SETTINGS RT JODY CHANGED VENT SETTINGS TO PS 12, PEEP 5, FIO2 50%, TV 350. OXY SAT REMAINS >90%. RR 20'S.
--- NOTE | 2019-01-20 07:15 | NUR ---
AM ASSESSMENT: PT REMAINS INTUBATED AND IN BILATERAL SOFT WRIST RESTRAINTS TO PROTECT LINES. PT SEEN TURNING HEAD SIDE TO SIDE UPON THIS RN'S ARRIVAL TO ROOM. SEDATION HAS REMAINED OFF DURING THE NIGHT AND WILL REMAIN OFF. PT WILL OPEN EYES WHEN VOICE IS CALLED. PT WILL SHAKE HEAD YES/NO, TO SOME QUESTIONS BUT ANSWERS ARE NOT ALWAYS APPROPRIATE. PT UNABLE TO FOLLOW ANY DIRECTIONS WHEN ASKED. LUNGS ARE DIMINISHED IN THE BILATERAL BASES WITH EXP WHEEZES IN THE VINNY, AND EXPIRATORY RHONCI IN RML/RUL. VENT SETTINGS: SPONT MODE, PS-12, P-5, FI02-50%, RR-20'S RANGE WITH BQ-137-897HP. HR REGULAR, ST 100-110'S RANGE. PICC IN LOGAN, DRSG C/D/I. DEEP PITTING EDEMA WITH WEEPING IN UE'S. 2+ PITTING EDEMA IN BILATERAL LE'S. ABD LARGE/MOD DISTENDED-NO NOTED BM SINCE 01/12. BOWEL CARE STARTED. NO GRIMACE TO PALPATION. BT'S ACTIVE X4 QAUDS. VITAL HIGH PROTEIN AT GOAL RATE OF 25ML/HR. LOW RESIDUALS. -FULL CODE STATUS -CBG'S Q6HR -BOWEL CARE TO PROMOTE BM -ONCOLOGY CONSULT
--- NOTE | 2019-01-20 07:30 | NUR ---
DR REICH IN TO ASSESS PT. UPDATED WITH PT'S CURRENT STATUS. REPORTS HE WILL CALL AND SPEAK WITH PT'S DAUGHTER ABOUT TX OPTIONS.
--- NOTE | 2019-01-20 07:30 | NUR ---
PT CHANGED TO AC MODE R/T LOW TIDAL VOLUMES 280-330.
--- NOTE | 2019-01-20 08:30 | NUR ---
PT STARTING TO APEAR MORE RESTLESS. CONTINUALLY SHAKING HEAD SIDE TO SIDE, WITH FACIAL GRIMACING. PT TX'D WITH FENTANYL.
--- NOTE | 2019-01-20 11:00 | NUR ---
INCREASING RESTLESSNESS AGAIN WITH HYPERTENSION. PT APPEARS TO BE MORE CONSISTENTLY AWAKE AND BECOMING MORE RESTLESS, WITH FACIAL GRIMACES. TX'S WITH ORDERED FENTANYL. STILL UNABLE TO FOLLOW ANY COMMANDS. WILL OPEN EYES TO VOICE OR NAME BUT DOES NOT HAVE CONSISTENT/CONTINUOUS FOCUS WITH GAZE. PT CONTINUES TO SHAKE HEAD SIDE TO SIDE.
--- NOTE | 2019-01-20 12:19 | NUR ---
DECREASED RESTLESSNESS DIRECTLY AFTER MEDICATING WITH FENTANYL. PT WITH INCREASING RESTLESSNESS AGAIN. RESTARTED PRECEDEX @ 0.3MCGKG/MG/MIN FOR PT COMFORT. WILL CONTINUE TO MONITOR FOR PT COMFORT.
--- NOTE | 2019-01-20 17:11 | NUR ---
SHIFT SUMMARY: PT REMAINS INTUBATED. ATTEMPTED USING FENTANYL FOR POSSIBLE PAIN/RESTLESSNESS, WITHOUT GOOD RESULTS. PT THEN RESTARTED ON PRECEDEX, CURRENTLY @ 0.4MCG/KG/MIN, WHICH HAS PROVEN TO BE HELPFUL AND PT APPEARS MORE COMFORTABLE AND LESS FACIAL GRIMACING WITH USE OF PRECEDEX. LUNGS HAVE INS/EXP WHEEZES T/O BILATERALLY AND REMAINS DIMINISHED IN THE BILATERAL BASES, RT>LT. VENT SETTINGS CHANGED BACK TO AC-18, TV-450, P-5, FI02-50%. HAS MIN-MOD LOPEZ SPUTUM OUT PER ETT. PICC IN THE RT UA WITH NS-TKO. CONT DEEP, PITTING GENERALIZED EDEMA IN THE UE'S AND 2+ PITTING EDEMA IN THE LE'S. ABD REMAINS DISTENDED WITH ACTIVE BT'S X4 QAUDS. NO GRIMACE TO PALPATION. PT INCONTINENT OF A SM SOFT, BROWN BM THIS SHIFT. FLANNERY CATHETER DRAINING CLEAR, OVI COLORED URINE TO GRAVITY.
--- NOTE | 2019-01-20 18:55 | NUR ---
REPORTED OFF: BEDSIDE REPORT GIVEN TO NICHELLE VILLEGAS WHOM WILL ASSUME CARE OF PT.
--- NOTE | 2019-01-20 19:15 | NUR ---
ASSUMING CARE OF PT AT THIS TIME. PT REPORT RECEIVED AT BEDSIDE WITH OFFGOING NURSE, VICKIE STEWARD. PT LYAING IN BED, INTUBATED, SEDATED. VS STABLE - SEE VS FS. PT DOESN OT APPEAR TO BE IN DISTRESS AT THIS TIME. WILL REVIEW PLAN OF CARE.
--- NOTE | 2019-01-20 19:30 | NUR ---
ASSESSMENT PT REPSONDS TO VERBAL STIMULI, OPENS EYES TO VERBAL STIMULI, A&O TO SELF, MINIMALLY FOLLOWING COMMANDS (NOT ABLE TO PROFILE MILL OPERATOR TAPE CONTROL WITH BILAT HANDS ON COMMAND, ABLE TO MOVE R FT ON COMMAND, NOT ABLE TO MOVE L FT ON COMMAND), NODDING HEAD Y/N TO SOME QUESTIONS, LOCALIZES PAIN, INTUBATED, SEDATED. PROPOFOL DRIP ON STANDBY. PRECEDEX DRIP AT 0.2 MCG/KG/HR - WILL TITRATE TO EFFECT. PT NODDED HEAD YES TO SENSATION INTACT ALL EXTREMETIES AND NO TO N/T ALL EXTREMETIES. PT WEST. GENERALIZED WEAKNESS NOTED. LESS MOVEMENT NOTED THIS PM. PT IN BILAT WRIST RESTRAINTS TO PROTECT VITAL LINES/CORDS/TUBES AND TO PROTECT FROM SELF-EXTUBATION. PT OCC PULLING ON RESTRAINTS. NO S/SX OF PAIN/DISCOMFORT. PT DENIES PAIN/DISCOMFORT. COARSE T/O, EXP WHEEZING MIDDLE AND LOWER LOBES, DIMINISHED LOWER LOBES. VENT SETTINGS: AC 18 TV 350, PEEP 5, FIO2 45%. OXY SAT >90%. RR 20'S. SUCTION VIA ETT: SCANT AMOUNTS OF THICK LOPEZ SECRETIONS. AFEBRILE. NS.R HR 90'S. BP STABLE - SEE VS FS. STRONG RADIAL PULSES. FAINT TIBIAL AND PEDAL PULSES. EDEMA NOTED. NO WEEPING BUE'S. WARM, PINK SKIN. HYPOACTIVE BT X4 QUADRANTS. ABD SOFT, NO FACIAL GRIMACING WITH PALPATION, MOD DIST. OG IN PLACE. TF: VHP AT GOAL RATE 35 ML/HR AND 30 ML FLUSH Q4 HR. NO BM. F/C: CLEAR, DARK YELLOW URINE. PICC LOGAN. NS TKO AT 10 ML/HR.
[2019-01-21 03:28] LABS: BASOPHILS ABSOLUTE AUTO 0.02 K/mm3 (0.00-0.23); BASOPHILS PERCENT AUTO 0 % (0-2); EOSINOPHILS ABSOLUTE AUTO 0.09 K/mm3 (0.00-0.68); EOSINOPHILS PERCENT AUTO 1 % (0-6); Hematocrit 26.2 % (33.0-51.0); Hemoglobin 8.1 g/dL (11.5-16.0); Mean Corpuscular HGB 28.1 pg (26.0-34.0); Mean Corpuscular HGB Conc 30.9 g/dL (31.5-36.5); Mean Corpuscular Volume 91 fL (80-100); Mean Platelet Volume 9.9 fL (9.1-12.4); Platelet Count 125 K/mm3 (150-400); RDW Coefficient Variation 14.7 % (11.7-14.2); RDW Standard Deviation 47.9 fL (35.1-46.3); Red Blood Cell Count 2.88 M/mm3 (3.80-5.20); White Blood Cell Count 19.13 K/mm3 (4.00-11.30)
[2019-01-21 03:37] LABS: IMMATURE GRAN ABSOLUTE AUTO 0.32 K/mm3 (0.00-0.10); IMMATURE GRAN PERCENT AUTO 2 % (0-1); LYMPHOCYTES ABSOLUTE AUTO 7.45 K/mm3 (0.84-5.20); LYMPHOCYTES PERCENT AUTO 39 % (21-46); MONOCYTES ABSOLUTE AUTO 0.39 K/mm3 (0.16-1.47); MONOCYTES PERCENT AUTO 2 % (4-13); NEUTROPHILS ABSOLUTE AUTO 10.86 K/mm3 (1.96-9.15); NEUTROPHILS PERCENT AUTO 57 % (41-73)
[2019-01-21 03:47] LABS: Anion Gap 0 mmol/L (6-16); Blood Urea Nitrogen 45 mg/dL (8-24); Bun/Creatinine Ratio 59.9 (12.0-20.0); CO2, Blood 39 mmol/L (21-32); Calcium, Blood 7.6 mg/dL (8.5-10.1); Chloride, Blood 98 mmol/L (98-108); Creatinine, Blood 0.75 mg/dL (0.40-1.00); Glomerular Filtration Rate >60 (60-); Glucose, Blood 100 mg/dL (70-99); Potassium, Blood 5.2 mmol/L (3.5-5.5); Sodium, Blood 137 mmol/L (136-145)
--- NOTE | 2019-01-21 04:51 | NUR ---
SHIFT ASSESSMENT PT RESPONDS TO VERBAL STIMULI, OPENS EYES TO VERBAL STIMULI, OCC OPENS EYES SPONT, A&O TO SELF, MINIMALLY FOLLOWING COMMANDS (NOT ABLE TO TAR PROCESSING TECHNICIAN WITH BILAT HANDS ON COMMAND, ABLE TO MOVE R FT ON COMMAND, NOT ABLE TO MOVE L FT ON COMMAND), NODDING HEAD Y/N TO SOME QUESTIONS, LOCALIZES PAIN, INTUBATED. INCREASED RESTLESSNESS AND ANXIETY NOTED THIS AM. PROPOFOL DRIP REMAINS ON STANDBY. PRECEDEX DRIP AT 0.7 MCG/KG/HR - CONT TO TITRATE TO EFFECT. PT NODDED HEAD YES TO SENSATION INTACT ALL EXTREMETIES AND NO TO N/T ALL EXTREMETIES. PT WEST. GENEARLIZED WEAKNESS NTOED. INCREASED MOVEMENT NOTED THIS AM. PT IN BILAT WRIST RESTRAINTS TO PROTECT VITAL LINES/CORDS/TUBES AND TO PROTECT FROM SELF-EXTUBATION. PT OCC PULLING ON RESTRAINTS. OCC S/SX OF PAIN/DISCOMFORT NOTED T/O SHIFT. PT OCC NODDING HEAD YES TO PAIN/DISCOMFORT T/O SHIFT. CONT TO ASSESS FOR PAIN/DISCOMFORT AND MEDICATED WITH PAIN MEDS PER PHYSICIAN'S ORDER / UTILIZED NONPHARM METHODS. COARSE T/O, DIMINISHED LOWER LOBES, OCC EXP WHEEZING. VENT SETTINGS: AC 18, TV 350, PEEP 5, FIO2 40%. CONT TO TITRATE FIO2 TO MAINTAIN SPO2 90% AND GREATER. RR 18 TO 30'S. SUCTION VIA ETT: SCANT AMOUNTS OF THICK LOPEZ SECRETIONS. AFEBRILE. NSR TO ST. HR 90'S TO 110'S. HYPERTENSIVE THIS AM, OTHERWISE BP STABLE (SEE VS FS). HYDRALAZINE PRN. STRONG RADIAL PULSES. FAINT TIBIAL AND PEDAL PULSES. EDEMA NOTED. NO WEEPING BUE'S. WARM, PINK SKIN. HYPOACTIVE BT X4 QUDRANTS. ABD SOFT, NO FACIAL GRIMACING WITH PALPATION, MOD DIST. OG IN PLACE. TF: VHP AT GOAL RATE 35 ML/HR AND 30 ML FLUSH Q4 HR. NO BM. RESIDUAL WNL. CLEAR, DARK YELLOW URINE. PICC LOGAN. NS TKO AT 10 ML/HR. WILL CONT TO MONITOR PT AND WILL PROVIDE BEDSIDE REPORT TO ONCOMING NURSE THIS AM.
[2019-01-21 05:16] LABS: PCO2 Arterial 57.5 mmHg (35-45); PO2 Arterial 56.7 mmHg (80-100); pH Blood Arterial 7.41 (7.35-7.45)
--- NOTE | 2019-01-21 07:33 | NUR ---
ASSUMED CARE: PT RESTING IN BED WITH BILATERAL WRIST RESTRAINTS. VENTILATOR IN PLACE. AC 18/350/5/45%. PRECEDEX AT 0.7MCG/KG/MIN. PROPOFOL ON STANDBY DUE TO PT'S HYPOTENSION. TUBE FEED THROUGH OG AT GOAL. FLANNERY CATH IN PLACE PUTTING OUT YELLOW URINE WITH SOME SEDIMENT. RT AT BEDSIDE DOING VEST CPT AT THIS TIME.
--- NOTE | 2019-01-21 08:55 | NUR ---
PT OPENS EYES WITH VERBAL STIMULI. NODS HEAD TO YES/NO QUESTIONS. UNABLE TO FOLLOW COMMANDS WHEN ASKED TO SQUEEZE FINGERS/MOVE FEET. PRECEDEX AT 0.7MCG/KG/MIN AND PROPOFOL IS OFF. NO FURTHER NEEDS OR CONCERNS AT THIS TIME.
--- NOTE | 2019-01-21 09:19 | NUR ---
PT'S DAUGHTER CALLED AND WAS GIVEN AN UPDATE ON PT'S STATUS. WAS INFORMED THAT WEAN WAS NOT SUCCESSFUL DUE TO PT'S BLOOD PRESSURE INCREASING. ASKED PT ABOUT CONVERSATION SHE HAD WITH BAKARI REGARDING COMFORT CARE AND PT SAID SHE WAS STILL PROCESSING. SAID SHE WOULD BE IN LATER TODAY. STEAMFITTER SUPERVISOR AWARE
--- NOTE | 2019-01-21 09:41 | NUR ---
PT SWITCHED TO PRESSURE SUPPORT, SETTINGS 14/5 WITH 45% FIO2. VSS AT THIS TIME
--- NOTE | 2019-01-21 10:27 | NUR ---
DR WADDELL AWARE OF CONVERSATION NURSES HAD WITH PT'S DAUGHTER ABOUT CONFORT CARE VS PEG AND TRACH. STATES THAT IF DAUGHTER COMES IN TO SEE PT LET DR WADDELL KNOW. PT REMAINS ON PRESSURE SUPPORT AND TOLERATING BETTER THAN THIS AM.
[2019-01-21 11:00] LABS: Base Excess Venous 12.3 mmol/L; Bicarbonate Venous 34.4 mmol/L (24.0-30.0); PCO2 Venous 59.2 mmHg (38-42); PO2 Venous 40.2 mmHg (38-42); pH Blood Venous 7.41 (7.34-7.37)
--- NOTE | 2019-01-21 11:15 | NUR ---
SPOKE WITH PALLIATIVE CARE REGARDING PT'S PROGRESS AND PLAN. PALLIATIVE CARE AWARE THAT PT HAS BEEN INTUBATED FOR 12 DAYS WITH MINIMAL PROGRESS AND FURTHER CONVERSATIONS MAY NEED TO BE HAD WITH DAUGHTER ABOUT COMFORT CARE VS TRACH AND PEG TUBE PLACEMENT. NET MAKING SUPERVISOR AWARE
--- NOTE | 2019-01-21 13:44 | NUR ---
PT'S DAUGHTER ARRIVED. GAVE HER AN UPDATE THAT HER MOM HAS TOLERATED THIS WEAN MUCH BETTER THAN THIS AM AND THAT DIURETICS HAVE BEEN STARTED. ASKED DAUGHTER IF SHE HAD ANY QUESTIONS OR CONCERNS AND SHE SAID "NO, I JUST WANTED TO COME AND SPEND SOME TIME WITH MY MOMMA." LET DAUGHTER KNOW THAT DR WADDELL WAS WILLING TO TALK TO HER IF SHE WISHED, SHE AGREED. PAGE TO DR WADDELL TO LET HER KNOW THAT DAUGHTER IS HERE
--- NOTE | 2019-01-21 13:52 | NUR ---
DR WADDELL AWARE THAT PT'S DAUGHTER IS HERE
--- NOTE | 2019-01-21 14:18 | NUR ---
DR WADDELL WENT INTO ROOM AND SPOKE WITH DAUGHTER AND ABOUT OPTIONS SINCE WE ARE COMING UP ON 14 DAYS INTUBATED. DAUGHTER HAS NOT DECIDED ANYTHING OF YET. LEFT WITH AFTER ASKING IF IT WAS POSSIBLE FOR A PERSON TO NOT NEED A TRACH LATER.
--- NOTE | 2019-01-21 15:07 | NUR ---
PT'S VE TOT WAS ALARMING TOO LOW. RAND IN RESPIRATORY SWITCHED PT BACK TO AC 18/350/5/45%. MEDICATED FOR WRESTLESSNESS. NO FURTHER NEEDS A THIS TIME. GRANDSON AT BEDSIDE.
--- NOTE | 2019-01-21 15:44 | NUR ---
PT'S DAUGHTER CAME OUT AND ASKED TO SPEAK WITH DR WADDELL. SHE ASKED ABOUT CODE STATUS CHANGES AND WHAT EXTUBATION AND COMFORT CARE WOULD LOOK LIKE. SHE STATES SHE DOES NOT THINK SHE WOULD HAVE A TRACH PUT IN. DAUGHTER GOT EMOTIONAL AND LEFT UNIT BUT STAYED. THIS RN REITERATED TO HIM THAT DNR MEANS WE WILL STILL TREAT AND THE VENT STAYS IN PLACE BUT IF HER HEART STARTS WE DO NOT RESTART IT. ALSO PROVIDED WITH BOOK FROM PALLIATIVE CARE FOR MAKING THESE KINDS OF DECISIONS. FAMILY NO LONGER IN ROOM AT THIS TIME. NO FURTHER NEEDS OR CHANGES
--- NOTE | 2019-01-21 18:19 | NUR ---
SHIFT SUMMARY: PT'S FAMILY HAD A DISCUSSION WITH DR WADDELL TODAY. PT IS NOW DNR STATUS. REMAINS INTUBATED AT AC18/450/5/45%. DIURESING WITH GOOD RESPONSE. BILATERAL WRIST RESTRAINTS IN PLACE. PT HAS OPENED EYES AND NODDED OR SHOOK HEAD TO YES/NO QUESTIONS AND ATTEMPTS TO FOLLOW COMMANDS. PLAN IS TO GIVE HER A FEW MORE DAYS ON VENT BEFORE DECIDING FOR COMFORT CARE. NO FURTHER NEEDS OR CONCERNS AT THIS TIME.
--- NOTE | 2019-01-21 19:15 | NUR ---
ASSUMING CARE OF PT AT THIS TIME. PT REPORT RECEIED AT BEDSIDE WITH OFFGOING NURSE, DARRICK STEWARD. PT LAYING IN BED, INTUBATED, SEDATED UPON ENTERING THE ROOM. VS STABLE - SEE VS FS. PT DOES NOT APPEAR TO BE IN DISTRESS AT THIS TIME. WILL REVIEW PLAN OF CARE.
--- NOTE | 2019-01-21 19:30 | NUR ---
ASSESSMENT PT RESPONDS TO VERBAL STIMULI, OPENS EYES TO VERBAL STIMULI, A&O TO SELF, FOLLOWS COMMADNS (ABLE TO WEAKLY SALES TRADER WITH BILAT HANDS ON COMMAND, ABLE TO MOVE BILAT FT ON COMMAND), NODDING HEAD Y/N TO SOME QUESTIONS, LOCALIZES PAIN, INTUBATED, SEDATED, OCC ANXIETY. PROPOFOL ON STANDBY - WILL CONT TO TITRATE TO EFFECT. PRECEDEX DRIP AT 0.7 MCG/KG/HR - WILL TITRATE TO EFFECT. PT NODDED HEAD YES TO SENSATION INTACT ALL EXTREMETIES AND NO TO N/T ALL EXTREMETIES. PT WEST. GENERALIZED WEAKNESS NOTED. INCREASED MOVEMENT NOTED THIS PM. PT IN BILAT WIRST RESTRAINTS TO PROTECT VITAL LINES/CORDS/TUBES AND TO PROTECT FROM SELF-EXUTBATION. PT OCC PULLING ON RESTRAINTS. PT NODDED HEAD YES TO PAIN/DISCOFMORT. S/SX OF PAIN/DISCOMFORT NOTED. MEDICATED WITH FENT AND UTILIZED NONPHARM METHOD FOR PAIN/DISCOMFORT. EXP WHEEZE T/O, COARSE T/O, DIMINISHED LOWER LOBES. VENT SETTINGS: AC 18, TV 350, PEEP 5, FIO2 45%. OXY SAT >90%. RR 20'S. SUCTION VIA ETT: SMALLA RHONDA OF THICK LOPEZ SECRETIONS. AFEBRILE. ST WITH OCC PAC'S. HR 110'S. BP STABLE - SEE VS FS. STRONG RADIAL PULSES. FAINT TIBIAL AND PEDAL PULSES. EDEMA NOTED. WARM, PINK SKIN. HYPOACTIVE BT X4 QUADRANTS. ABD SOFT, NO FACIAL GRIMACING WITH PALPATION, MOD DIST. OG IN PLACE. TF: VHP AT GOAL RATE 35 ML/HR AND 30 ML FLUSH Q4 HR. RESIDUAL 0 ML. NO BM. F/C: DARK YELLOW URINE WITH SEDIMENT. PICC LOGAN. NS TKO AT 10 ML/HR.
[2019-01-22 03:23] LABS: BASOPHILS ABSOLUTE AUTO 0.02 K/mm3 (0.00-0.23); BASOPHILS PERCENT AUTO 0 % (0-2); EOSINOPHILS ABSOLUTE AUTO 0.05 K/mm3 (0.00-0.68); EOSINOPHILS PERCENT AUTO 0 % (0-6); Hematocrit 22.7 % (33.0-51.0); Hemoglobin 7.1 g/dL (11.5-16.0); IMMATURE GRAN ABSOLUTE AUTO 0.12 K/mm3 (0.00-0.10); IMMATURE GRAN PERCENT AUTO 1 % (0-1); LYMPHOCYTES ABSOLUTE AUTO 6.06 K/mm3 (0.84-5.20); LYMPHOCYTES PERCENT AUTO 38 % (21-46); MONOCYTES ABSOLUTE AUTO 0.18 K/mm3 (0.16-1.47); MONOCYTES PERCENT AUTO 1 % (4-13); Mean Corpuscular HGB 27.8 pg (26.0-34.0); Mean Corpuscular HGB Conc 31.3 g/dL (31.5-36.5); Mean Corpuscular Volume 89 fL (80-100); Mean Platelet Volume 9.9 fL (9.1-12.4); NEUTROPHILS ABSOLUTE AUTO 9.44 K/mm3 (1.96-9.15); NEUTROPHILS PERCENT AUTO 60 % (41-73); Platelet Count 112 K/mm3 (150-400); RDW Coefficient Variation 14.7 % (11.7-14.2); Red Blood Cell Count 2.55 M/mm3 (3.80-5.20); White Blood Cell Count 15.87 K/mm3 (4.00-11.30)
[2019-01-22 03:38] LABS: Anion Gap 4 mmol/L (6-16); Blood Urea Nitrogen 41 mg/dL (8-24); Bun/Creatinine Ratio 55.4 (12.0-20.0); CO2, Blood 36 mmol/L (21-32); Calcium, Blood 7.2 mg/dL (8.5-10.1); Chloride, Blood 94 mmol/L (98-108); Creatinine, Blood 0.74 mg/dL (0.40-1.00); Glomerular Filtration Rate >60 (60-); Glucose, Blood 112 mg/dL (70-99); Magnesium, Blood 2.1 mg/dL (1.6-2.4); Phosphorus, Blood 2.7 mg/dL (2.5-4.9); Potassium, Blood 4.6 mmol/L (3.5-5.5); Sodium, Blood 134 mmol/L (136-145)
--- NOTE | 2019-01-22 04:32 | NUR ---
SHIFT ASSESSMENT NO ACUTE CHANGES NOTED T/O SHIFT. PT RESPONDS TO VERBAL STIMULI, OPENS EYES TO VERBAL STIMULI, OCC OPENS EYES SPONT, A&O TO ESLF, FOLLOWS COMMANDS (ABLE TO WEAKLY PHYSICAL THERAPY AID WITH BILAT HANDS ON COMMAND, ABLE TO MOVE BILAT FT ON COMMAND), NODDING HEAD Y/N TO MOST QUESTOINS, LOCALIZES PAIN, INTUBATED, SEDATED, OCC ANXIETY. PROPOFOL REMAINED ON STANDBY. PRECEDEX DRIP AT 0.7 MCG/KG/HR - CONT TO TITRATE OT EFFECT. PT NODDED HEAD YES TO SENSATION INTACT ALL EXTREMETIES AND NO TO N/T ALL EXTREMETIES. PT WEST. GENERALIZED WEAKNESS NOTED. INCREASED MOVEMENT NOTED THIS PM. PT IN BILAT WRIST RESTRAINTS TO PROTECT VITAL LINES/CORDS/TUBES AND TO PROTECT FROM SELF-EXTUBATION. PT OCC PULLING ON RESTRAINTS. PT NODDED HEAD YES TO PAIN/DISCOMFORT T/O SHIFT AND S/SX OF PAIN/DISCOMFORT NOTED T/O SHIFT. CONT TO ASSESS FOR PAIN/DISCOMFRT AND MEDICATED WITH PAIN MEDS PER PHYSICIAN'S ORDER / UTILIZED NONPHARM METHODS. PT SLEEPING AND RESTING COMFORTABLY IN BED AFTER ADMNISTERING PAIN MEDS AND UTILIZING NONPHARM METHODS. COARSE T/O, DIMINISHED LOWER LOBES, OCC EXP WHEEZING. VENT SETTINGS: AC 18, TV 350, PEEP 5, FIO2 45%. OXY SAT >90%. RR 18 TO 20'S WHILE ON AC SETTINGS. RR 12 TO 20'S DURING SBT. SBT COMPLETED BY RT GUILLERMO. SBT SETTINGS PS 14, PEEP 5, FIO2 45%. PER GUILLERMO RT: PT SWITCHED BACK TO AC SETTINGS D/T LOW MINUTE VENTILATION. SUCTION VIA ETT: SMALL AMOUNTS OF THICK LOPEZ SECRETIONS TO SMALL AMOUNTS OF THICK BLOODY SECRETIONS. AFEBRILE. NSR TO ST WITH OCC PAC'S. HR 80'S TO 110'S. BP STABLE - SEE VS FS. STRONG RADIAL PULSES. FAINT TIBIAL AND PEDAL PULSES. EDEMA NOTED. WARM, PINK SKIN. HYPOACTIVE BT X4 QUADRANTS. ABD SOFT, NO FACIAL GRIAMCING WITH PALPATION, MOD DIST. OG IN PLACE. TF: VHP AT GOAL RATE 35 ML/HR AND 30 ML FLUSH Q4 HR. INCREASING RESIDUALS THIS AM. NO BM T/O SHIFT. F/C: DARK YELLOW URINE WITH SEDIMENT. PICC LOGAN. NS TKO AT 10 ML/HR. WILL CONT TO MONITOR PT AND WILL PROVIDE BEDSIDE REPORT TO ONCOMING NURSE THIS AM.
--- NOTE | 2019-01-22 04:57 | NUR ---
DR. WADDELL CALLED DR. WADDELL AT THIS TIME. INFORMED DR. WADDELL OF LABS. DR. WADDELL ORDERED REPEAT H&H AT 1200.
--- NOTE | 2019-01-22 08:04 | NUR ---
ASSUMED CARE ASSUMED CARE OF PT AT 0700. REPORT RECEIVED FROM NICHELLE VILLEGAS. PT APPEARS RESTLESS AND UNCOMFORTABLE, NODDING "YES" TO QUESTIONS OF PAIN. MED c FENTANYL PER EMAR AND REPOSITIONED. PT APPEARS MORE COMFORTABLE, RESTING WITH EYES CLOSED AT THIS TIME. PT ABLE TO NOD YES/NO TO QUESTIONS, MOVE EXT'S AND SQUEEZE HANDS TO COMMAND. PT INTUBATED WITH VENT SETTINGS AC 18, TV 350, PEEP 5, FiO2 45%, RR UPPER 20'S PRIOR TO PAIN MEDS, NOW 18-20, SPO2 >90%. LUNG SOUNDS VERY WHEEZY AND COARSE T/O. MONITOR SHOWS SINUS TACH WITH HR LOW 100'S. PT HAS OG TUBE WITH VITAL HIGH PROTEIN AT 35ML/HR, RESIDUAL CHECK OF 95ML RE-FED. ABDOMEN ROUND, DISTENDED, SOMEWHAT FIRM TO PALPATION. HYPOACTIVE BT'S T/O. PT DENIES ABD PAIN. PT HAS FLANNERY CATH IN PLACE DRAINING DARK YELLOW/OVI URINE TO GRAVITY. PICC LINE IN PLACE TO LOGAN WITH NS TKO AND PRECEDEX 0.7 MCG/KG. HERNAN SOFT WRIST RESTRAINTS IN PLACE TO PROTECT LINES, TUBES. WILL CONTINUE TO MONITOR PT CLOSELY.
--- NOTE | 2019-01-22 11:00 | NUR ---
DR. NADIRA WADDELL ROUNDED ON PT. PLAN TO DC IV ABX AND SWITCH TO PO LEVAQUIN, PLAN TO CHANGE FROM SOLUMEDROL TO DECADRON. ALSO PLAN TO ADD PO PAIN MEDICATION. NO ADDITIONAL ORDERS RECEIVED AT THIS TIME.
--- NOTE | 2019-01-22 12:33 | NUR ---
PT UP IN RECLINER - APPEARS COMFORTABLE AFTER RECENT PAIN MED ADMINISTRATION. VITAL SIGNS STABLE. VENT SETTINGS UNCHANGED. LUNG SOUNDS REMAIN WHEEZY T/O. PT DIURESING AFTER LASIX ADMIN THIS AM. WILL CONTINUE TO MONITOR PT CLOSELY.
--- NOTE | 2019-01-22 19:07 | NUR ---
Summary- Pt remains in chair. Monitor and VS stable. No acute chg in status today. Dr. Pierre gave status report to daughter on the phone at this time.
--- NOTE | 2019-01-22 19:15 | NUR ---
ASSUMED CARE OF PT, REPORT RCV'D FROM JUAN JOSE Hamm RN. PT INTUBATED, VENT SETTINGS AC /5/45%. PICC AMBER. PRECEDEX 0.7 MCG/KG/HR RUNNING. PT RESPONDS TO VERBAL STIMULUS AND APPEARS TO ANSWER YES/NO QUESTIONS WITH HEAD NOD BUT FAILS TO FOLLOW COMMANDS. LUNG SOUNDS DIM T/O WITH WHEEZES LEFT/RIGHT UPPER LOBE. BOWEL TONES HYPOACTIVE, ABDOMEN DISTENDED AND FIRM TO PALPATION. VITAL KENAN PROTIEN RUNNING AT GOAL RATE OF 35 ML/HR WITH 30ML H20 FLUSH Q4. RESIDUALS 80 ML, REFED. SEE FULL SHIFT ASSESSMENT.
[2019-01-23 04:32] LABS: Hematocrit 25.1 % (33.0-51.0); Hemoglobin 7.9 g/dL (11.5-16.0); Mean Corpuscular HGB Conc 31.5 g/dL (31.5-36.5); Mean Corpuscular Volume 89 fL (80-100); Mean Platelet Volume 9.6 fL (9.1-12.4); Platelet Count 110 K/mm3 (150-400); RDW Coefficient Variation 14.8 % (11.7-14.2); RDW Standard Deviation 47.4 fL (35.1-46.3); Red Blood Cell Count 2.82 M/mm3 (3.80-5.20); White Blood Cell Count 19.99 K/mm3 (4.00-11.30)
[2019-01-23 04:49] LABS: Anion Gap 3 mmol/L (6-16); Blood Urea Nitrogen 43 mg/dL (8-24); Bun/Creatinine Ratio 57.8 (12.0-20.0); CO2, Blood 36 mmol/L (21-32); Calcium, Blood 7.6 mg/dL (8.5-10.1); Chloride, Blood 95 mmol/L (98-108); Creatinine, Blood 0.74 mg/dL (0.40-1.00); Glomerular Filtration Rate >60 (60-); Glucose, Blood 131 mg/dL (70-99); Phosphorus, Blood 2.7 mg/dL (2.5-4.9); Potassium, Blood 4.5 mmol/L (3.5-5.5); Sodium, Blood 134 mmol/L (136-145)
[2019-01-23 04:53] LABS: PCO2 Arterial 54.3 mmHg (35-45); PO2 Arterial 80.6 mmHg (80-100); pH Blood Arterial 7.43 (7.35-7.45)
[2019-01-23 05:03] LABS: BASOPHILS PERCENT MAN 0 % (0-2); EOSINOPHILS PERCENT MAN 0 % (0-6); LYMPHOCYTES ABSOLUTE MAN 10.59 K/mm3 (0.84-5.20); LYMPHOCYTES PERCENT MAN 53 % (21-46); MONOCYTES PERCENT MAN 0 % (4-13); NEUTROPHILS ABSOLUTE MAN 9.39 K/mm3 (1.96-9.15); SEG NEUTROPHILS PERCENT MAN 47 % (41-73); TOTAL CELLS COUNTED 100
--- NOTE | 2019-01-23 06:41 | NUR ---
SHIFT SUMMARY PT REMAINS INTUBATED WITH VENT SETTINGS AC 18/350/5/45% WITH SATS AT 94%. PT ALERT ABLE TO NOD HEAD YES/NO IN RESPONSE TO QUESTIONS ABOUT PAIN. PRECEDEX AT 0.7 MCG/KG/HR. PT HAD PERIOD OF HYPOTENSION THAT WAS RECTIFIED WITH 500 ML NS BOLUS, PER DR WADDELL'S ORDER. TF AT GOAL RATE WITH RESIDUALS OF 80 ML-100 ML. PT HAD "SMEAR" BOWEL MOVEMENT. BOWEL TONES REMAIN HYPO ACTIVE. 1550 ML DARK, YELLOW URINARY OUTPUT. PT FEBRILE WITH TMAX 99.6. WILL REPORT TO DAYSALFT NURSE.
--- NOTE | 2019-01-23 07:44 | NUR ---
ASSUMED CARE REPORT FROM NICHELLE LOZANO. PATIENT'S EYES ARE OPEN, LOOKING AROUND ROOM, BUT DOES NOT FOLLOW COMMANDS. PRECEDEX AT 0.7 MCG/KG/HR. TITRATED TO 0.5 MCG/KG/HR.
--- NOTE | 2019-01-23 07:51 | NUR ---
RESTRAINTS REMOVED PT IS NOT USING HER ARMS
--- NOTE | 2019-01-23 07:59 | NUR ---
PRECEDEX TITRATED BACK UP FOR INCREASED RESTLESSNESS
--- NOTE | 2019-01-23 11:47 | NUR ---
1CC AIR ADDED TO ETT CUFF. RT NOTIFIED
--- NOTE | 2019-01-23 13:54 | NUR ---
Thania appeared to be awake. She is on vent and unable to speak. She appeared to have moments of lucidity, but only brief seconds. She nodded yes to pain, and I informed RN. No family present. Per RN, dtr to arrive this evening as decision must be made regarding POC. Advised RN to call me when dtr arrived. I will remain available to pt and family.
--- NOTE | 2019-01-23 14:33 | NUR ---
PATIENT IS TRYING TO SW[place]ISH MASSEUSE NOW ON COMMAND. HAS BEEN MOVING HER LEFT LEG OUT OF BED. NODDED YES WHEN ASKED IF SHE WOULD LIKE TO BE REPOSITIONED AND NO WHEN ASKED IF SHE WANTED TO WATCH TV
--- NOTE | 2019-01-23 14:35 | NUR ---
UNABLE TO BEND ARMS D/T EDEMA. WILL CONTINUE TO MONITOR FOR NEED FOR RESTRAINTS
[2019-01-23 15:06] LABS: ANA DIRECT Negative (Negative); ANTIMYELOPEROXIDASE (MPO) ABS <9.0 U/mL (0.0-9.0); ANTIPROTEINASE 3 (PR-3) ABS <3.5 U/mL (0.0-3.5); ATYPICAL PANCA <1:20 titer (Neg:<1:20); CYTOPLASMIC (C-ANCA) <1:20 titer (Neg:<1:20); PERINUCLEAR (P-ANCA) <1:20 titer (Neg:<1:20)
--- NOTE | 2019-01-23 17:33 | NUR ---
HYPOTENSIVE AFTER FENTANYL GIVEN FOR PAIN. PRECEDEX ON STBY. IMPROVED AFTER AWAKENED DURING REPOSITION.
--- NOTE | 2019-01-23 18:30 | NUR ---
FAMILY AT BEDSIDE. DR. WADDELL NOTIFIED. CHAPLAIN JOSELIN, STOPPED BY.
--- NOTE | 2019-01-23 18:41 | NUR ---
MD VISIT DR. WADDELL IN TO TALK WITH FAMILY
--- NOTE | 2019-01-23 18:49 | NUR ---
DAUGHTER ASKED DR. WADDELL TO HAVE PATIENT EXTUBATED NOW, WHILE THEY WAIT OUTSIDE. DAWOOD HYATT, RT NOTIFIED.
--- NOTE | 2019-01-23 18:59 | NUR ---
PATIENT EXTUBATED 1854. 97% ON 2LNC.
--- NOTE | 2019-01-23 19:22 | NUR ---
PATIENT EXTUBATED SUCCESSFULLY. FENTANYL GIVEN. MORPHINE NEBS FOR BREATHING DIFFICULTY. PATIENT IS NOW COMFORT CARE. FAMILY AT BEDSIDE. REPORT GIVEN TO NICHELLE WELCH
--- NOTE | 2019-01-23 20:01 | NUR ---
ASSUMED CARE REPORT RECIEVED. PT JUST RECENTLY EXTUBATED AND MADE COMFORT CARE. PT DAUGHTER AND OTHER FAMILY IN ROOM AT THIS TIME. PT IS AWAKE AND COMPLAINING OF PAIN UPON ENTERING ROOM. PT WITH AIR HUNGER. PT MED WITH MORPHINE AND FENTANYL PER EMAR. IV GTT'S DC'D. PICC TO [place]AN REMAINS C/D/I. FLANNERY IN PLACE WITH YELLOW OUTPUT NOTED. PT ON 4L 02 NC. WILL CONTINUE TO MONITOR.
--- NOTE | 2019-01-24 01:07 | NUR ---
0045 PT RECEIVED FROM ICU (TRANSFER) INTO ROOM 336 VIA BED. PT CURRENTLY HAVING AGONAL BREATHING, NON RESPONSIVE TO VERBAL OR PAINFUL STIMULI. 0100 DR AVILES (PRODUCT DISTRIBUTION SPECIALIST) NOTIFIED WITH ORDERS FOR ROXANOL.
--- NOTE | 2019-01-24 03:43 | NUR ---
pt continues to have aganol breathing, non responsive painful or verbal stimuli.
--- NOTE | 2019-01-24 06:01 | NUR ---
SHIFT SUMMARY: 73 Y/O FEMALE CONTINUES BE NON RESPONSIVE AND AGONAL BREATHING SINCE ARRIVAL ON UNIT. PT MEDICATED WITH ROXANOL 20MG SL Q1H FOR AIR HUNGER. PT TURNED Q2H BY STAFF X 3 ASSIST. PTS BED IN LOW POSITION, CALL LIGHT AT SIDE.
--- NOTE | 2019-01-24 06:49 | NUR ---
THIS NURSE RECEIVED CALL FROM FEMALE IDENTIFYING SELF DAUGHTER WITH UPDATE PROVIDED. NO CHANGE IN CONDITION NOTED. PT TURNED ONTO LEFT SIDE X 4 ASSIST WITH HOB ELEVATED SEMI FOWLERS.
--- NOTE | 2019-01-24 07:17 | NUR ---
0710 PT WITH THIS NURSE HEARING NO HEART BEAT OR RESPIRATIONS DETECTED. THIS NURSE CALLED LILIANA--DAUGHTER AT [phone] AND ADVISED HER OF MOTHERS PASSING. DAUGHTER VOICED SHE WILL BE COMING TO HOSPITAL WITHIN THE HOUR.
--- NOTE | 2019-01-24 07:47 | NUR ---
PT. WHEN NOC SHIFT RN AND I WENT IN TO DO REPORT. HE CALLED TIME OF AT 0710 AND I VERIFIED IT. NOC RN NOTIFIED FAMILY, I CALLED NADIRA MENA, AND DR. REICH AND LEFT MESSAGES WITH THEM. QUINCY PANG RN ALSO NOTIFIED.
--- NOTE | 2019-01-24 08:20 | NUR ---
[facility] PICKED UP THE BODY OF CHUY HEWITT BY JAZZY HODGE WHO IS ALSO THE 'S GRANDSON.
== END 2019-01-24 07:10 | DRG 207 ==
LOC: ER 14:09 → ICUW 16:57 → PCU 16:57 → ICUE 16:57 → ERHOLD 16:57 → ICUW 18:03 → PCU 18:15 → ICUW 01-02 09:02 → PCU 01-05 13:07 → ICUE 01-10 09:30 → MEDS 01-24 00:42
PROVIDERS: Emergency Medicine; Family Medicine; Internal Medicine; Internal Medicine Critical Care Medicine; Internal Medicine Pulmonary Disease; Nurse Practitioner Acute Care; ADMIT Internal Medicine
PROC: 0BH17EZ Insertion of Endotracheal Airway into Trachea, Via Natural or Artificial Opening (ICD-10-PCS; principal; 2019-01-10)
PROC: 5A1955Z Respiratory Ventilation, Greater than 96 Consecutive Hours (ICD-10-PCS; 2019-01-10)
PROC: 02HV33Z Insertion of Infusion Device into Superior Vena Cava, Percutaneous Approach (ICD-10-PCS; 2019-01-10)
PROC: 0BB48ZX Excision of Right Upper Lobe Bronchus, Via Natural or Artificial Opening Endoscopic, Diagnostic (ICD-10-PCS; 2019-01-18)
DX: J44.0 Chronic obstructive pulmonary disease with (acute) lower respiratory infection (principal); J15.212 Pneumonia due to Methicillin resistant Staphylococcus aureus; A41.9 Sepsis, unspecified organism; I21.A1 Myocardial infarction type 2; J96.21 Acute and chronic respiratory failure with hypoxia; G92 Toxic encephalopathy; J96.22 Acute and chronic respiratory failure with hypercapnia; C34.90 Malignant neoplasm of unspecified part of unspecified bronchus or lung; C91.10 Chronic lymphocytic leukemia of B-cell type not having achieved remission; E87.1 Hypo-osmolality and hyponatremia; J95.89 Other postprocedural complications and disorders of respiratory system, not elsewhere classified; K56.7 Ileus, unspecified; J44.1 Chronic obstructive pulmonary disease with (acute) exacerbation; Z51.5 Encounter for palliative care; F17.210 Nicotine dependence, cigarettes, uncomplicated; M79.7 Fibromyalgia; M54.9 Dorsalgia, unspecified; E66.01 Morbid (severe) obesity due to excess calories; G47.33 Obstructive sleep apnea (adult) (pediatric); K21.9 Gastro-esophageal reflux disease without esophagitis; B37.9 Candidiasis, unspecified
CPT/HCPCS: 31500; 31720; 36415; 36569; 36600; 51702; 71045; 71260; 74018; 80048; 80053; 80069; 80198; 82803; 82947; 83605; 83735; 83880; 83930; 83935; 84100; 84145; 84300; 84443; 84484; 85014; 85018; 85025; 85027; 85610; 85730; 87040; 87070; 87077; 87147; 87186; 87205; 88108; 88305; 93005; 93010; 93306; 94002; 94003; 94640; 94644; 94660; 94667; 94668; 94762; 96374; 96375; 99285-25; C1751; C9113; J0280; J0295; J0360; J0690; J0696; J1100; J1644; J1650; J1815; J1940; J2060; J2250; J2270; J2354; J2405; J2704; J2765; J2930; J3010; J7030; J7040; J7050; J7060; J7070; J7120; Q9967